=== PATIENT | male | born 1935 | race Caucasian/White ===

== ENCOUNTER 2019-09-27 16:00 | Outpatient (RCR) | payer MEDICARE, BC, SELFPAY | END 2019-09-27 16:05 | disposition home or self-care (01) | LOC: PT 16:00 | PROVIDERS: Visit Provider Family Medicine | DX: S81.802A Unspecified open wound, left lower leg, initial encounter (principal); S41.101A Unspecified open wound of right upper arm, initial encounter | CPT/HCPCS: 29580; 97161; 97164; 97597; 97598 ==

== ENCOUNTER 2021-04-04 10:23 | Emergency (ER) | payer MEDICARE, BC, SELFPAY ==
[2021-04-04 10:55] VITALS: BP 116/72; PULSE 80; RESP 24; TEMP 37.3; O2SAT 98; BMI 26.9
--- NOTE | 2021-04-04 11:01 | XR_ITS ---
PROCEDURE INFORMATION: Exam: XR Chest Exam date and time: 04/04/2021 11:01 AM Age: 85 years old Clinical indication: Cough; Additional info: Congestion, cough TECHNIQUE: Imaging protocol: XR of the chest. Views: 2 views. COMPARISON: CR CXR CHEST(2 VIEWS-NOT PORTABLE) 03/16/2017 10:23 PM FINDINGS: Tubes, catheters and devices: Pacer leads stable. Lungs: Unremarkable. No consolidation. Pleural spaces: Unremarkable. No pleural effusion. No pneumothorax. Heart/Mediastinum: Unremarkable. No cardiomegaly. Bones/joints: Unremarkable. IMPRESSION: No acute process.
[2021-04-04 11:17] LABS: UTC Strep Screen (Rapid) Negative (Negative)
--- NOTE | 2021-04-04 11:42 | HMH.EDUTC ---
[facility] [place] Clinical Impression: Bronchitis Disposition: Home, Self-Care Condition on Discharge: Good Instructions: Acute Bronchitis, DI for Acute Bronchitis Additional Instructions: Start antibiotic today. Be sure to complete entire prescription even if feeling better Tylenol and ibuprofen as needed for pain or fever Humidifier/vaporizer/hot steamy shower Follow-up with primary care tomorrow. Follow-up immediately in the ER of the [facility] for new or worsening symptoms or no noticeable improvement over the next 48-72 hours. Stop smoking Margarette Rios will not cause drowsiness to use at bedtime to help stop cough so that she can get some sleep covid swab was sent to lab, call later today for results. self isolate until test results are known to be negative Nasal saline and bulb syringe or nose Simran to remove nasal drainage to help with nasal congestion. Hard to eat, drink, sleep with nasal congestion so important to keep this cleaned out. Monitor temp. Tylenol or Motrin as needed for pain or fever Encourage fluids, water, Gatorade, Powerade, Pedialyte if infant/toddler/child Warm salt water gargles Warm fluids Sore throat lozenges Sleep elevated Humidifier/vaporizer Follow-up immediately for new or worsening symptoms or no noticeable improvement over the next 48-72 hours. Prescriptions: Amoxicillin [Amoxicillin 500mg Tab] 500 mg PO BID 10 Days #20 tablet Azithromycin [Zithromax 250mg tab] 250 mg PO DIRECTED #6 tab Transmission Status: Pending to [facility]/pharmacy #[id number] Referrals: Coleman Fitzgerald [Primary Care Provider] - Time of Disposition: 12:09 Medical Decision Making - Sumanth Inquiry Pt receiving controlled substance: No Vital Signs: 04/04/21 10:55 Temperature 99.1 F Temperature Source Oral Pulse Rate [Right Brachial] 80 Respiratory Rate 24 Blood Pressure [Right Arm] 116/72 Blood Pressure Mean [Right Arm] 86 Blood Pressure Source [Right Arm] Automatic Cuff Blood Pressure Position [Right Arm] Sitting 02 Sat by Pulse Oximetry 98 Oxygen Delivery Method Room Air - Lab Data Lab Results 04/04/21 10:51: Strep Scn Rapid Clinic Negative Orders (Tests/Meds): ORDERS Category Date Time Status Full Resp Panel w/COVID ([facility]) Routine Lab 04/04/21 10:54 Received Strep Screen Confirmation Stat Micro 04/04/21 10:[address] [facility] [place] - General Chief complaint: Urgent [facility] Stated complaint: chills, sore throat, congestion, body aches Time Seen by Provider: 04/04/21 11:42 Mode of Arrival: Ambulatory Source of Information: Patient Limitations: No Limitations Description of Symptoms (Recalled from Triage Doc. by RN): PATIENT C/O SORE THROAT, RUNNY NOSE, CHILLS, BODY ACHES, AND PRODUCTIVE COUGH WITH DARK MUCOUS X 4 DAYS HEENT Symptoms (Recalled from RN notes): Yes Resp Symptoms (Recalled from RN notes): Yes Skin Symptoms (Recalled from RN notes): No MS Symptoms (Recalled from RN notes): No Functional Status (Recalled from RN notes): WNL - History of Present Illness Provider Complaint: 85 yr old male presents for sore throat,runny nose,chills,body aches, ad coughing up thick dark mucus for 4 days. pt states he can not lay flat due to coughing - Related Data Previous Rx's Medication Instructions Recorded Amoxicillin [Amoxicillin 500mg Tab] 500 mg PO BID 10 Days #20 tablet 04/04/21 Azithromycin [Zithromax 250mg 250 mg PO DIRECTED #6 tab 04/04/21 tab] Allergies Allergy/AdvReac Type Severity Reaction Status Date / Time acetaminophen Allergy Intermediate I-ITCHING Verified 04/04/21 11:15 [From DARVOCET-N] propoxyphene Allergy Intermediate I-ITCHING Verified 04/04/21 11:15 [From DARVOCET-N] Sulfa (Sulfonamide Allergy Intermediate I-ITCHING Verified 04/04/21 11:15 Antibiotics) [SULFA (SULFONAMIDE ANTIBIOTICS)] Penicillins Allergy Verified 04/04/21 11:15 - Worker's Comp Is this a Worker's Comp case?: No [facility] History - Hepatiti
[2021-04-04 11:46] LABS: Adenovirus,PCR Not Detected (NotDetected); Bordetella Pertussis Not Detected (NotDetected); Chlamydophila Pneumoniae, PCR Not Detected (NotDetected); Coronavirus 19, PCR Not Detected (NotDetected); Coronavirus 229E Not Detected (NotDetected); Coronavirus NL63 Not Detected (NotDetected); Coronavirus OC43 Not Detected (NotDetected); Coronovirus HKU1,PCR Not Detected (NotDetected); Human Metapneumovirus Not Detected (NotDetected); Influenza A, PCR Not Detected (NotDetected); Influenza AH1, 2009 Not Detected (NotDetected); Influenza AH1, PCR Not Detected (NotDetected); Influenza AH3,PCR Not Detected (NotDetected); Influenza B, PCR Not Detected (NotDetected); Mycoplasma Pneumoniae, PCR Not Detected (NotDetected); Parainfluenza 1, PCR Not Detected (NotDetected); Parainfluenza 2, PCR Not Detected (NotDetected); Parainfluenza 3, PCR Not Detected (NotDetected); Parainfluenza 4, PCR Not Detected (NotDetected); Respiratory Syncytial Virus Not Detected (NotDetected)
[2021-04-04 12:11] VITALS: BP 116/72; PULSE 80; RESP 24; TEMP 37.3; O2SAT 98
[2021-04-04 12:52] LABS: Rhinovirus/Enterovirus Detected (NotDetected)
== END 2021-04-04 12:23 | disposition home or self-care (01) ==
PROVIDERS: Emergency Provider Nurse Practitioner Family; PCP Family Medicine
DX: J20.9 Acute bronchitis, unspecified (principal); Z20.822 Contact with and (suspected) exposure to COVID-19
CPT/HCPCS: G0463; 71046; 87581; 87632; 87798; 87880; 99202; C9803; U0003; U0005

== ENCOUNTER 2024-03-27 07:27 | Emergency (ER) | payer MEDICARE, BC, SELFPAY ==
[2024-03-27 07:28] VITALS: BP 146/73; PULSE 68; RESP 20; TEMP 36.7; O2SAT 96; BMI 25.0
[2024-03-27 08:00] VITALS: BP 123/64; PULSE 60; O2SAT 95
--- NOTE | 2024-03-27 08:04 | ECG_ITS ---
APPROVED REPORT Exam: Resting ECG HR:63 bpm ECG Measurements Heart Rate 63 AXES OR 271 P 89 QRSd 113 QRS 97 QT 443 T 47 QTc 451 Conclusion ELECTRONIC ATRIAL PACEMAKER BORDERLINE RIGHT AXIS DEVIATION [QRS AXIS > 90] MODERATE INTRAVENTRICULAR CONDUCTION DELAY [110+ ms QRS DURATION] ABNORMAL RHYTHM ECG Electronically signed by : MERRY FUENTES, 03/27/2024 15:29:08
--- NOTE | 2024-03-27 08:04 | PC.NURSE ---
drainage noted from the penis prior to kc insertion. sterile technique used. urine sample sent to lab. notified.
[2024-03-27 08:07] LABS: Microscopic, Urine URINE MICROSCOPIC (MICROSCOPIC)
[2024-03-27 08:13] LABS: Appearance,Urine CLEAR (Clear); Bilirubin,Urine Negative (Negative); Blood, Urine 2+ (Negative); Color,Urine YELLOW (Yellow); Glucose,Urine (UA) Negative (Negative); Ketones,Urine Negative (Negative); Leukocyte Esterase,Urine 1+ (Negative); Nitrate,Urine Negative (Negative); Protein,Urine Negative (Negative); Urobilinogen,Urine 0.2 EU/dl (0.2)
--- NOTE | 2024-03-27 08:15 | HMH.EDGENADL ---
Discharge Plan Disposition Patient Disposition: Home, Self-Care Condition: Good Prescriptions Prescriptions: No Action azithromycin 250 MG tablet 250 mg PO DIRECTED Qty: 6 0RF Rx Instructions: Take two (2) tablets on day #1, then one (1) tablet day #2 thru #5 azithromycin 250 MG tablet 250 mg PO DIRECTED Qty: 6 0RF Rx Instructions: Take two (2) tablets on day #1, then one (1) tablet day #2 thru #5 fluticasone propionate 120 SPR/BOT bottle 1 spr NS DAILY 14 Days Qty: 9.9 0RF benzonatate 100 MG capsule 100 mg PO BID PRN (Reason: Cough) 7 Days Qty: 14 0RF Referrals Follow up/Referrals: Coleman Fitzgerald [Primary Care Provider] - See instructions Activity Restrictions/Add. Instructions Additional Instructions/Restrictions: You were evaluated in the emergency department today. Please continue taking your antibiotic at home as prescribed. Keep your kc catheter in place. See attached instructions. We sent a urine culture. We will let you know if anything comes back positive. Your calcium is slightly low, so follow up with your primary care provider for recheck. Clinical Impressions Clinical Impression: Acute UTI, Acute urinary retention, Hypocalcemia Instructions Patient Instructions: How to Care for Your Kc Catheter -- Male, Prostatitis, DI for Urinary Tract Infection (UTI) Print Language Print Language: Serbian Discharge ED Provider: Melly Shore General Adult HPI General Chief complaint: Urogenital-Male Stated complaint: needs catheter Time Seen by Provider: 03/27/24 07:35 Mode of Arrival: Ambulatory Source of Information: Patient and Relative Limitations: No Limitations Description of Symptoms (Recalled from ER Triage Doc. by RN): pt is unable to urinate. diarrhea,belly pain. History of Present Illness HPI narrative: This patient is an 88-year-old male with a history of BPH presenting to the emergency department for evaluation with concern for inability to urinate. Patient was admitted to [facility] ICU for 5 days and was just released yesterday. He notes that he had sepsis secondary to urinary tract infection and inability to urinate requiring Kc catheter as well as an ileus. He states that he started having normal bowel function and also was able to urinate on his own yesterday after a Kc catheter was pulled, so he was discharged without a catheter. He notes that his urine output had slowly tapered off and he is not been able to urinate anything since last night. Last night he only got a small dribble. He has significant pelvic pressure and feels the urge to urinate but cannot go. Otherwise, he has not had any fevers, chills, nausea, vomiting, or other concerns. He is still having good bowel movements and is passing gas. He notes he had a bowel movement here just upon arrival. Related Data Previous Rx's ?Medication ?Instructions ?Recorded azithromycin 250 mg tablet 250 mg PO DIRECTED #6 tabs 04/04/21 azithromycin 250 mg tablet 250 mg PO DIRECTED #6 tabs 04/04/21 benzonatate 100 mg capsule 100 mg PO BID PRN Cough 7 days #14 04/04/21 caps fluticasone propionate 50 1 spr NS DAILY 14 days #9.9 mL 04/04/21 mcg/actuation nasal spray,suspension Allergies Allergy/AdvReac Type Severity Reaction Status Date / Time acetaminophen Allergy Intermediate I-ITCHING Verified 04/04/21 11:15 [From DARVOCET-N] propoxyphene Allergy Intermediate I-ITCHING Verified 04/04/21 11:15 [From DARVOCET-N] Sulfa (Sulfonamide Allergy Intermediate I-ITCHING Verified 04/04/21 11:15 Antibiotics) [SULFA (SULFONAMIDE ANTIBIOTICS)] Penicillins Allergy Verified 04/04/21 11:15 PFSH [facility] Disclaimer: The information contained in this section may have been updated after the patient was seen, as this information can be updated by other users. Social History Smoking Status: Never smoker alcohol intake: never current occupational status: other Travel in the last 8 weeks: None ROS Obtained: Yes All systems reviewed & no additional complaints except as documented Physical Exam General General appearance: alert and in no apparent distress Head Head exam: atraumatic and normocephalic Eye Eye exam: Present normal appearance, PERRL and EOMI ENT ENT exam: Present normal exam, normal oropharynx, mucous membranes moist and normal external ear exam Neck Neck exam: Present normal inspection, full ROM and trachea midline; Absent tenderness Chest Chest inspection: Present normal inspection and symmetric chest wall rise; Absent tenderness Respiratory Respiratory exam: Present normal lung sounds bilaterally; Absent respiratory distress, wheezes, stridor or accessory muscle use Cardiovascular Cardiovascular exam: Present regular rate and normal rhythm Abdominal Exam Abdominal exam: Present distention (Suprapubic) and tenderness (Suprapubic); Absent rebound or rigidity Extremities Exam Extremities exam: Present normal inspection, full ROM and normal capillary refill; Absent tenderness or edema Back Exam Back exam: Present normal inspection and full ROM; Absent tenderness Neurological Exam Neurological exam: Present alert, oriented X3, CN II-XII intact and normal gait; Absent motor sensory deficit Psychiatric Psychiatric exam: Present normal affect and normal mood Skin Skin exam: Present warm and dry Medical Decision Making Medical Records Medical records reviewed: Yes I reviewed the patient's medical records. Screening: Per USPSTF and CDC recommendations, given the prevalence of disease in our region, it is our hospital?s policy to screen for HIV and viral Hepatitis for all patients aged 18 and over and those with ongoing risk factors. Sumanth Inquiry Pt receiving controlled substance: No Vital Signs: 03/27/24 07:28 03/27/24 08:00 03/27/24 09:49 Temperature 98.1 F 98.4 F Temperature Source Oral Oral Pulse Rate 60 89 Pulse Rate [Right] 68 Respiratory Rate 20 20 Blood Pressure 123/64 151/76 H Blood Pressure [Right Arm] 146/73 H Blood Pressure Mean [Right Arm] 97 02 Sat by Pulse Oximetry 96 95 Oxygen Delivery Method Room Air Room Air Lab Data Lab results reviewed: Yes I reviewed the patient's lab results. Lab Results 03/27/24 07:44: Urine Color Yellow, Urine Appearance Clear, Urine pH 6.0, Ur Specific [place] 1.010, Urine Protein Negative, Urine Glucose (UA) Negative, Urine Ketones Negative, Urine Blood 2+ A, Urine Nitrate Negative, Urine Bilirubin Negative, Urine Urobilinogen 0.2, Ur Leukocyte Esterase 1+ A, Urine RBC 10-20, Urine WBC 10-20, Ur Squamous Epith Cells None, Urine Bacteria Trace 03/27/24 08:20: WBC 6.5, RBC 3.52 L, Hgb 11.1 L, Hct 32.6 L, MCV 92.6, MCH 31.4 H, MCHC 33.9, RDW 13.8, Plt Count 153, MPV 8.0, Neut % (Auto) 68.3, Lymph % (Auto) 19.6, [place] % (Auto) 9.0, Eos % (Auto) 2.7, Baso % (Auto) 0.4, Neut # (Auto) 4.5, Lymph # (Auto) 1.3, [place] # (Auto) 0.6, Eos # (Auto) 0.2, Baso # (Auto) 0.0, Sodium 135 L, Potassium 3.9, Chloride 109 H, Carbon Dioxide 23, Anion Gap 6.9, BUN 13, Creatinine 0.90, Estimated Creat Clear 66, Estimated GFR 80, Est GFR ( Amer) 96, Glucose 90, Lactate 0.8, Calcium 7.7 L, Total Bilirubin 0.5, AST 68 H, ALT 48, Alkaline Phosphatase 81, Total Protein 4.8 L, Albumin 2.5 L, Globulin 2.3, Albumin/Globulin Ratio 1.1, Lipase 31, HIV 1&2 Antibody Rapid Nonreactive 03/27/24 08:20 03/27/24 08:20 Orders (Tests/Meds): ORDERS Category Date Time Status Complete Blood Count Auto Diff Stat Lab 03/27/24 08:20 Completed Comprehensive Metabolic Panel Stat Lab 03/27/24 08:20 Completed HIV (1&2) Antibody Rapid Stat Lab 03/27/24 08:20 Completed Hep C Ab with Reflex to RNA Stat Lab 03/27/24 08:20 Received Lactic Acid Stat Lab 03/27/24 08:20 Completed Lipase Stat Lab 03/27/24 08:20 Completed UA [Urinalysis and Microscopic] Stat Lab 03/27/24 07:44 Completed Urine Culture Stat Micro 03/27/24 07:44 Received ECG Data Tracing #1: I reviewed this ECG and interpreted as documented below: Atrially paced at a ventricular rate of [address] changes concerning for ischemia. ECG initial impression date: 03/27/24 ECG initial impression time: 08:06 Medical Decision Narrative: In summary, this patient is a 88-year-old man presenting to the Emergency Department for evaluation of suprapubic pain and inability to urinate. Differential diagnoses considered include but are not limited to urinary retention, urinary tract infection, bowel obstruction, prostatitis. Ruling out the most morbid conditions drove assessment. It should be noted patient's history includes BPH and cardiovascular history which may or may not be at goal therapy. This complicates all aspects of care by increasing patient's risk for morbidity. On exam, patient initially had significant suprapubic distention and tenderness, and bladder scan demonstrated greater than 1000 cc in his bladder. After informed consent was obtained, Kc catheter was placed. There was no significant resistance and it was placed without issue. He had return of clear yellow urine with resolution of his pain and pressure. Afterward, he was feeling a lot better with completely benign abdominal exam. No tenderness, rebound, or guarding noted. He denies any abdominal pain. Workup included CBC, CMP, lipase, urinalysis, lactic, EKG. On reassessment, patient continues to states that he feels a lot better after placement of Kc catheter. He had a liter out initially and did not continue dumping any significant amount urine. Abdominal exam remains benign. Labs are reassuring without significant KIM, leukocytosis, or other concern. His urine is concerning for possible infection, but he still on antibiotics for this. Urine culture was sent and is pending. Ultimately after shared decision-making with the patient, I feel it is appropriate for discharge home with close follow-up with urology and primary care. Low back was anchored in place. Patient was discharged after all questions were answered. Critical Care Critical Care Time Critical Care Time: No
[2024-03-27 08:30] LABS: Bacteria,Urine Trace /lpf
[2024-03-27 08:31] LABS: Basophils % 0.4 % (0.1-2.0); Eosinophils # 0.2 K/mm3 (0.0-0.4); Eosinophils % 2.7 % (0.1-12.0); Hematocrit 32.6 % (42.0-52.0); Hemoglobin 11.1 g/dL (14.1-18.0); Lymphocytes # 1.3 K/mm3 (0.7-4.5); Lymphocytes % 19.6 % (10-50); Mean Corpuscular HGB Conc 33.9 g/dL (31.8-35.4); Mean Corpuscular Hemoglobin 31.4 pg (27.0-31.2); Mean Corpuscular Volume 92.6 fl (80-94); Monocytes # 0.6 K/mm3 (0.1-1.0); Neutrophils # 4.5 K/mm3 (1.8-7.8); Neutrophils % 68.3 % (37.0-80.0); Platelet Count 153 K/mm3 (142-424); Red Blood Count 3.52 M/mm3 (4.60-6.20); Red Cell Distribution Width 13.8 % (11.5-17.5); White Blood Count 6.5 K/mm3 (4.8-10.8)
[2024-03-27 08:47] LABS: Alanine Aminotransferase 48 U/L (12-78); Albumin Level 2.5 g/dl (3.5-5.0); Albumin/Globulin Ratio 1.1 (1.1-1.8); Alkaline Phosphatase 81 U/L (38-126); Anion Gap 6.9 mEq/L (5-15); Aspartate Amino Transferase 68 U/L (17-59); Bilirubin,Total 0.5 mg/dl (0.2-1.3); Blood Urea Nitrogen 13 mg/dl (9-20); Calcium 7.7 mg/dl (8.4-10.2); Carbon Dioxide 23 mmol/L (22.0-30.0); Chloride 109 mmol/L (98-107); Creatinine Clearance Estimated 66 mL/min (50-200); Estimated Glomerular Filt Rate 80 ml/min (>60); GFR (African American) 96 ML/MIN (>60); Globulin 2.3 g/dL (1.3-3.2); Glucose 90 mg/dl (74-100); Lipase 31 U/L (23-300); Potassium 3.9 mmoL/L (3.5-5.1); Sodium 135 mmol/L (136-145); Total Protein,Serum 4.8 g/dl (6.3-8.2)
[2024-03-27 08:48] LABS: Lactic Acid 0.8 mmol/L (0.7-2.1)
[2024-03-27 09:49] VITALS: BP 151/76; PULSE 89; RESP 20; TEMP 36.9; O2SAT 94
[2024-03-27 13:55] LABS: HIV (1&2) Antibody Rapid NONREACTIVE (NONREACTIVE)
[2024-03-28 09:39] LABS: HCV Ab Non Reactive (Non Reactive)
== END 2024-03-27 09:52 | disposition home or self-care (01) ==
PROVIDERS: Emergency Provider Emergency Medicine; PCP Family Medicine
DX: N39.0 Urinary tract infection, site not specified (principal); R33.8 Other retention of urine; E83.51 Hypocalcemia; R10.9 Unspecified abdominal pain; R19.7 Diarrhea, unspecified
CPT/HCPCS: 51702; 80053; 81001; 83605; 83690; 85025; 86803; 87086; 87389; 93005; 99283

== ENCOUNTER 2025-02-03 10:50 | Emergency (ER) | payer MEDICARE, BC, SELFPAY ==
--- OUTSIDE RECORDS SUMMARY | 2024-11-30 06:00 | XMS_ITS | Encounter Summary ---
Author Organization [employer] ([place], [place], [place], [place]) Address [address] [place] [address] Care Team Providers Care Personal Injury Law Specialist Name Role Phone Coleman Fitzgerald MD Primary Care Provider [phone] Thalia Brito PA-C Unavailable [phone] Eduard Harris MD Unavailable Reason for Visit * Reason Comments Pacemaker /ICD Home Monitoring Encounter Details Date Type Department Care Team (Late st Contact Info) Description 11/30/2024 6:00 AM EDT Clinical Support [facility] Electrophysiology [address] [place] [phone] [place] [address] [place] [address] [address] [place] [address] Encounter for adjustment or management of cardiac device (Primary Dx); AICD (automatic cardioverter/defibr illator) present; Ischemic cardiomyopathy; Chronic systolic congestive heart failure (HCC) Social History Tobacco Use Types Packs/Day Years Used Date Smoking Tobacco: Former Smokeless Tobacco: Never Alcohol Use Standard Drinks/Week Comments Never 0 (1 standard drink = 0.6 oz pur e alcohol) Family and Community Support Answer Juan F e Recorded Help with Day to Day Activities Not on file 06/10/2023 Feeling Lonely or Isolated Not on file 06/10 Educational Attainment Answer Date Narinder rded Speak language other than Bhutanese at home Not on file 06/10/2023 Want help with school or training Not on file 06/10/2023 Substance Use Answer Date Recorded Used prescription meds for non-medical reasons N ot on file 06/10/2023 Used illegal drugs past 12 months Not on file 06/10/2023 Sex and Gender Information Value Date Recorded Sex Assigned at Not on file Legal Sex Male 5:30 PM CDT Gender Identity Not on file Sexual Orientation Not on file documented as of this encounter Plan of Treatment Upcoming Encounters Date Type Department Care Team (Late st Contact Info) Description 03/11/2025 1:30 PM EDT Office Visit [facility] Cardiology [address] [place] [phone] Corina Gómez MD [address] [place] [phone] documented as of this encounter Visit Diagnoses Diagnosis Encounter for adjustment or management of cardiac device- Primary 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 Ischemic cardiomyopathy Other specified forms of chronic ischemic heart disease Chronic systolic congestive heart failure (HCC) documented in this encounter Care Teams Personal Injury Law Specialist Relationship Specialty Start Date End Date Coleman Fitzgerald MD [address] [place] [address] [place] [address] PCP - General Family Medicine 05/28/22 Thalia Brito, PA-C [address] [facility] [address] [id number] Cardiology 01/07/23 [place] [address] [place] [address] [address] [place], [place] [id number] Cardiology 01/07/23 documented as of this encounter
--- OUTSIDE RECORDS SUMMARY | 2024-12-03 05:00 | XMS_ITS | Encounter Summary ---
Author Organization [employer] ([place], [place], [place], [place]) Address [address] [place] [address] Care Team Providers Care Machinery Erector Name Role Phone Coleman Fitzgerald MD Primary Care Provider [phone] Thalia Brito PA-C Unavailable [phone] Eduard Harris MD Unavailable Reason for Visit * Reason Comments Pacemaker /ICD Home Monitoring Encounter Details Date Type Department Care Team (Late st Contact Info) Description 12/03/2024 5:00 AM EDT Clinical Support [facility] Electrophysiology [address] [place] [phone] [place] [address] [place] [address] [address] [place] [address] Encounter for adjustment or management of cardiac [...] Date Narinder rded Speak language other than Ugandan at home Not on file 06/10/2023 Want [...] Description 03/11/2025 1:30 PM EDT Office Visit [facility] Cardiology [address] [place] [address] Corina Gómez MD [address] [place] [phone] documented as of this encounter Visit Diagnoses Diagnosis Encounter for adjustment or management of cardiac device- Primary 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
--- OUTSIDE RECORDS SUMMARY | 2024-12-20 10:25 | XMS_ITS | Encounter Summary ---
Author Organization [facility] Address [address] [place] [address] Care Team Providers Care Member Of Technical Staff Name Role Phone Herminio Tapia Unavailable [phone] Santiago Morrell MD Unavailable [phone] Coleman Fitzgerald MD Primary Care Provider [phone] Reason for Referral * Imaging (Routine) - Closed Specialty Diagnoses / Procedures Referred By Diana tomlinson Referred To Contact Radiology Diagnoses Malignant melanoma of lip (CMS/HCC) Procedures PET/CT FDG Whole Body Huang Gonzalez MD [address] [address] Phone: tel: fax: Referral ID Status Reason Start Date Expiration Date Visits Re quested Visits Authorized [id number] Closed 06/19/2024 12/19/2025 2 2 Reason for Visit * Imaging (Routine) - Closed Specialty Diagnoses / Procedures Referred By Diana tomlinson Referred To Contact Radiology Diagnoses Malignant melanoma of lip (CMS/HCC) Procedures PET/CT FDG Whole Body Huang Gonzalez MD [address] [address] Phone: tel: fax: Referral ID Status Reason Start Date Expiration Date Visits Re quested Visits Authorized [id number] Closed 06/19/2024 12/19/2025 2 2 Encounter Details Date Type Department Care Team (Latest Contact Info) Description 12/20/2024 10:25 AM EDT Hospital Encounter [facility] PET Scan [address] [place] [address] Malignant melanoma of lip (CMS/HCC) Discharge Disposition: Home or Self Care Social History Tobacco Use Types Packs/Day Years Used Date Smoking Tobacco: Former Cigarettes 1 30 1 950 - 1980 Smokeless Tobacco: Never Alcohol Use Standard Drinks/Week Comments Not Currently 0 (1 standard drink = 0.6 oz pur e alcohol) Sex and Gender Information Value Date Recorded Sex Assigned at Not on file Legal Sex Male 3:41 PM EDT Gender Identity Not on file Sexual Orientation Not on file documented as of this encounter Medications at Time of Discharge amiodarone (Pacerone) 200 MG tablet Take 1 tablet (200 mg) by mouth 1 (one) time each day. aspirin 81 MG EC tablet Aspirin Low-Strength 81 mg tablet,delayed release Daily atorvastatin (Lipitor) 40 MG tablet 1 (one) time each day. carvedilol (Coreg) 3.125 MG tablet carvedilol 3.125 mg tablet Two times a day clopidogrel (Plavix) 75 MG tablet Take 1 tablet (75 mg) by mouth 1 (one) time each day. finasteride (Proscar) 5 MG tablet 1 (one) time each day. gabapentin (Neurontin) 100 MG capsule gabapentin guaiFENesin (Humibid 3) 400 MG tablet Take 1 tablet (400 mg) by mouth. losartan (Cozaar) 50 MG tablet Take 1 tablet (50 mg) by mouth 1 (one) time each day. montelukast (Singulair) 10 MG tablet Take 1 tablet (10 mg) by mouth 1 (one) time each day. oxybutynin XL (Ditropan-XL) 10 MG 24 hr tablet 1 (one) time each day. tamsulosin (Flomax) 0.4 MG 24 hr capsule 1 capsule (0.4 mg) 1 (one) time each day. zolpidem (Ambien) 10 MG tablet TAKE 1 TABLET BY MOUTH ONCE A DAY AT BEDTIME 01/15/2022 documented as of this encounter Plan of Treatment Upcoming Encounters Date Type Department Care Team (Late st Contact Info) Description 09/17/2025 1:10 PM EDT Consult [facility] [address] [place] [address] Reyna Padilla, ANJEL [address] [place] [address] documented as of this encounter Procedures Procedure Name Priority Date/Time Associated Diagnosis Comments PET/CT FDG WHOLE BODY Routine 12/20/2024 12:29 PM EDT Malignant melanoma of lip (CMS/HCC) documented in this encounter Results * PET/CT FDG Whole Body (12/20/2024 12:29 PM EDT) Anatomical Region Laterality Modality Positron Emissio n Tomography (PET) Impressions 12/20/2024 5:09 PM EDT 1. Site of prior melanoma in the lower lip does not show significant FDG activity with some head motion which limits evaluation. 2. No evidence of metabolically active locoregional or distant metastatic disease. CRITICAL RESULT: No. COMMUNICATION: Per this written report. By electronically signing this report, I, the attending physician, attest that I have personally reviewed the images/data for the above examination(s) and agree with the final edited report. 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 PET/CT for subsequent treatment strategy. TECHNIQUE: Preparation: Last oral intake (except water) on 12/19/2024 at 22:00 PM. Diabetic: No. Blood glucose at time of FDG administration: 97 mg/dL. Radiopharmaceutical: 11.55 mCi of F-18 FDG administered intravenously at right antecubital fossa at 11:14 AM. Incubation interval: 50 minutes. Oral contrast: Not applicable. Positioning: Arms by sides. PET/CT scanner: Siemens Biograph 40 mCT. PET/CT acquisition: [id number], plus magnification (zoomed) neck. Standardized uptake value (SUV): Corrected for body weight only. CT: Low-dose, [id number], without intravenous contrast. TOTAL DLP (Dose Length Product): 898.52 mGy.cm mGy cm. COMPARISON/CORRELATION: FDG PET/CT December 20 2023 and January 18, 2023. CT neck and chest June 19, 2024. FINDINGS: Technical quality: Diagnostic. Measurements: Unless otherwise specified, all SUVs refer to maximum value in the target (mSUV). Reference: Reference: mean SUV liver: 2.9; previously: 2.5. CT linear measurements performed on axial images. Head and Neck: Head motion with misregistration partially limits evaluation. Near symmetric increased radiotracer activity in the vocal cords, likely vocalization and tonsils are not specific. No suspicious metabolically active or pathologically enlarged adenopathy. Mild asymmetry in FDG activity of the submandibular gland more prominent on the right (series 3,4 image 79) Thyroid without focal abnormal uptake. 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 No suspicious metabolically active pulmonary nodules or masses. Sequelae of prior granulomatous insult. Aortic and coronary calcifications. No pleural effusion, pericardial effusion or pneumothorax. Abdomen and Pelvis: No suspicious metabolically active or pathologically enlarged retroperitoneal or pelvic adenopathy. Cholecystectomy. Stable bilateral photopenic renal cysts. Stable left adrenal 1.5 x 1.3 cm low-attenuation mass likely adenoma (series 11,12 image 101). Stable right adrenal thickening without focal abnormal activity. Heterogenous bowel activity limiting evaluation. Sigmoid diverticulosis without noncontrast CT evidence of diverticulitis. Distended urinary bladder with linear activity in the prostatic urethra is nonspecific. 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 No ascites or drainable fluid collection Skeleton and Soft Tissues: No suspicious metabolically active aggressive osseous lytic or sclerotic lesions. Lower extremities motion with misregistration partially limits evaluation. Procedure Note Patrick Nava MD - 12/20/2024 CLINICAL INDICATION: 89-year-old male with history of lower lip melanoma s/p excision 7/21/2023undergoing routine surveillance imaging. PET/CT for subsequent treatmentstrategy. TECHNIQUE: Preparation: Last oral intake (except water) on 12/19/2024 at 22:00 PM. Diabetic: No. Blood glucose at time of FDG administration: 97 mg/dL. Radiopharmaceutical: 11.55 mCi of F-18 FDG administered intravenously atright antecubital fossa at 11:14 AM. Incubation interval: 50 minutes. Oral contrast: Not applicable. Positioning: Arms by sides. PET/CT scanner: Siemens Biograph 40 mCT. PET/CT acquisition: [id number]-sh-tiac, plus magnification (zoomed) neck. Standardized uptake value (SUV): Corrected for body weight only. CT: Low-dose, [id number]-jons, without intravenous contrast. TOTAL DLP (Dose Length Product): 898.52 mGy.cm mGy cm. COMPARISON/CORRELATION: FDG PET/CT December 20 2023 and January 18, 2023. CT neck and chest May. FINDINGS: Technical quality: Diagnostic. Measurements: Unless otherwise specified, all SUVs refer to maximum valuein the target (mSUV). Reference: Reference: mean SUV liver: 2.9; previously: 2.5. CT linear measurements performed on axial images. Head and Neck: Head motion with misregistration partially limits evaluation. Near symmetric increased radiotracer activity in the vocal cords, likelyvocalization and tonsils are not specific. No suspicious metabolically active or pathologically enlargedadenopathy. Mild asymmetry in FDG activity of the submandibular gland more prominenton the right (series 3,4 image 79) Thyroid without focal abnormal uptake. Chest: Left upper chest approach pacemaker/ICD (implantablecardioverter-defibrillator) No suspicious metabolically active or pathologically enlarged hilar ormediastinal adenopathy. No suspicious metabolically active pulmonary nodules or masses. Sequelae of prior granulomatous insult. Aortic and coronary calcifications. No pleural effusion, pericardial effusion or pneumothorax. Abdomen and Pelvis: No suspicious metabolically active or pathologically enlargedretroperitoneal or pelvic adenopathy. Cholecystectomy. Stable bilateral photopenic renal cysts. Stable left adrenal 1.5 x 1.3 cm low-attenuation mass likely adenoma(series 11,12 image 101). Stable right adrenal thickening without focalabnormal activity. Heterogenous bowel activity limiting evaluation. Sigmoid diverticulosis without noncontrast CT evidence ofdiverticulitis. Distended urinary bladder with linear activity in the prostatic urethra isnonspecific. Aneurysmal dilatation of the infrarenal abdominal aorta with photopenicintramural thrombosis which is stable from prior.(series 11,12 image 132). No ascites or drainable fluid collection Skeleton and Soft Tissues: No suspicious metabolically active aggressive osseous lytic or scleroticlesions. Lower extremities motion with misregistration partially limitsevaluation. IMPRESSION: 1.Site of prior melanoma in the lower lip does not show significant FDGactivity with some head motion which limits evaluation. 2.No evidence of metabolically active locoregional or distant metastaticdisease. CRITICAL RESULT: No. COMMUNICATION: Per this written report. By electronically signing this report, I, the attending physician, attestthat I have personally reviewed the images/data for the aboveexamination(s) and agree with the final edited report. Drafted by TJ Sales on 12/20/2024 3:59 PM Final report signed by Patrick Nava on 12/20/2024 5:09 PM Huang Gonzalez MD IMG NM PROCEDURES Final Result documented in this encounter Visit Diagnoses Diagnosis Malignant melanoma of lip (CMS/HCC) Malignant melanoma of skin of lip documented in this encounter Administered Medications Inactive Administered Medications - up to 3 most recent administrations Medication Order MAR Action Action Date Dose Rate Site Fludeoxyglucose F 18 (FDG 18) radio-isotope injection 10 millicurie 10 millicurie, Intravenous, Once, 1 dose, On Shannan 12/20/24 at 1215, Routine, Imaging NM Protocol Orders Given 12/20/2024 11:14 AM EDT 11.55 millicuries Right Antecubital documented in this encounter Additional Health Concerns Assessment Noted Time A fall risk assessment has been complete d for the patient 12/20/2024 2:47 PM EDT A Body Mass Index follow-up plan has been documented for the patient 12/21/2024 6:20 PM EDT documented as of this encounter Care Teams Member Of Technical Staff Relationship Specialty Start Date End Date Coleman Fitzgerald MD [facility] [place] [address] PCP - General 01/18/23 Herminio Tapia PA [address] [place] [address] Physician Security Police Officer Otolaryngology 12/16/22 Santiago Morrell MD [address] [place] [address] Referring Physician 12/16/22 documented as of this encounter
--- OUTSIDE RECORDS SUMMARY | 2024-12-20 10:26 | XMS_ITS | Encounter Summary ---
Author Organization [facility] Address [address] [place] [address] Care Team Providers Care Resident Services Director Name Role Phone Herminio Tapia Unavailable [phone] Santiago Morrell MD Unavailable [phone] Coleman Fitzgerald MD Primary Care Provider [phone] Reason for Visit * Imaging (Routine) - Closed Specialty Diagnoses / Procedures Referred By Contac t Referred To Contact Radiology Diagnoses Malignant melanoma of lip (CMS/HCC) Procedures PET/CT FDG Whole Body Huang Gonzalez MD [address] [place] [address] Phone: tel: fax: Referral ID Status Reason Start Date Expiration Date Visits Re quested Visits Authorized [id number] Closed 06/19/2024 12/19/2025 2 2 Encounter Details Date Type Department Care Team (Latest Contact Info) Description 12/20/2024 10:26 AM EDT - 12/20/2024 11:59 PM EDT Hospital Encounter [facility] PET Scan [address] [place] [address] Discharge Disposition: Home or Self Care Social History Tobacco Use Types Packs/Day Years Used Date Smoking Tobacco: Former Cigarettes 1 30 1 - 1979 Smokeless Tobacco: Never Alcohol Use Standard Drinks/Week [...] MG tablet 1 (one) time each day. bisoprolol (Zebeta) 5 MG tablet Take 1 tablet by mouth daily. carvedilol (Coreg) 3.125 MG tablet carvedilol 3.125 mg tablet Two times a day clopidogrel (Plavix) 75 MG tablet Take 1 tablet (75 mg) by mouth 1 (one) time each day. finasteride (Proscar) 5 MG tablet 1 (one) time each day. gabapentin (Neurontin) 100 MG capsule gabapentin guaiFENesin (Humibid 3) 400 MG tablet Take 1 tablet (400 mg) by mouth. lisinopril-hydro CHLOROthiazide 10-12.5 MG tablet Take 1 tablet by mouth daily. losartan (Cozaar) 50 MG tablet Take 1 [...] Info) Description 09/17/2025 1:10 PM EDT Consult [place] [facility] [address] [place] [address] Reyna Padilla PA [address] [place] [id number] documented as of this encounter Procedures Procedure [...] scanner: Siemens Biograph 40 mCT. PET/CT acquisition: [id number], plus magnification (zoomed) neck. Standardized uptake value (SUV): Corrected for body weight only. CT: Low-dose, [id number], without intravenous contrast. TOTAL DLP (Dose Length [...] history of lower lip melanoma s/p excision 12/10/2022undergoing routine surveillance imaging. PET/CT for subsequent treatmentstrategy. [...] scanner: Siemens Biograph 40 mCT. PET/CT acquisition: Reuduu-ep-fnji, plus magnification (zoomed) neck. Standardized uptake value (SUV): Corrected for body weight only. CT: Low-dose, zih-gtykcz-fjse, without intravenous contrast. TOTAL DLP (Dose Length [...] signing this report, I, the attending physician, keena I have personally reviewed the images/data for the aboveexamination(s) and agree with the final edited report. Drafted by TJ Sales on 12/20/2024 3:59 PM Final report signed by Patrick Nava on 12/20/2024 5:09 PM Huang Gonzalez MD IMG NM PROCEDURES Final Result documented in this encounter Visit Diagnoses Not on filedocumented in this encounter Additional Health Concerns Assessment Noted Time A fall risk assessment has been complete d for the patient 12/20/2024 2:47 PM EDT A Body Mass Index follow-up plan has been documented for the patient 12/21/2024 6:20 PM EDT documented as of this encounter Care Teams Resident Services Director Relationship Specialty Start Date End Date Coleman Fitzgerald MD [address] [place] [address] PCP - General 01/18/23 Herminio Tapia PA [address] [facility] [address] [place] [address] Physician Tooling Manager Otolaryngology 12/16/22 Santiago Morrell MD [address] [facility] [place] [address] Referring Physician 12/16/22 documented as of this encounter
--- OUTSIDE RECORDS SUMMARY | 2024-12-20 15:00 | XMS_ITS | Encounter Summary ---
Author Organization Healthcare Address [address] [place] [address] Care Team Providers Care Green Marketing Specialist Name Role Phone Herminio Tapia Unavailable [phone] Santiago Morrell MD Unavailable [phone] Coleman Fitzgerald MD Primary Care Provider [phone] Reason for Visit * Reason Comments Follow-up Encounter Details Date Type Department Care Team ([facility] st Contact Info) Description 12/20/2024 3:00 PM EDT Office Visit [facility] [address] [place] [address] Huang Gonzalez MD [address] [place] [address] Malignant melanoma of lip (CMS/HCC) Social History Tobacco Use Types Packs/Day Years Used Date Smoking Tobacco: Former Cigarettes - 1979 Smokeless Tobacco: Never Tobacco Cessation:Counseling Given: No Alcohol Use Standard Drinks/Week Comments Not Currently 0 (1 standard drink = 0.6 oz pur e alcohol) Sex and Gender Information Value Date Recorded Sex Assigned at Not on file Legal Sex Male 3:41 PM EDT Gender Identity Not on file Sexual Orientation Not on file documented as of this encounter Last Filed Vital Signs Vital Sign Reading Time Taken Comments Blood Pressure 90/55 12/20/2024 2:42 PM EDT Pulse 69 12/20/2024 2:42 PM EDT Temperature 36.3 C (97.4 F) 12/20/2024 2:42 PM EDT Respiratory Rate 11 12/20/2024 2:42 PM EDT Oxygen Saturation 97% 12/20/2024 2:42 PM EDT Inhaled Oxygen Concentration - - Weight 89.7 kg (197 lb 12 oz) 12/20/2024 2:42 PM EDT Height - - Body Mass Index 25.39 12/20/2022 9:12 AM EDT documented in this encounter Miscellaneous Notes * Progress Notes - Lorenzo Campo MD - 12/20/2024 3:00 PM EDT Images from the original note were not included. Mr. Johnny Stroud is a very pleasant 89 y.o. patient who is returning today for his follow-up. 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 Santiago Morrell. He was initially sent to my clinic in consultation for evaluation and management of his desmoplastic melanoma. He originally noticed the lesion on the inside of his lower lip approximately 1 year prior to evaluation. He first noticed it has a small bump to which he attributed to rubbing and trauma from his dentures. It continued to be bothersome as it increased in size over the course of a year and therefore he went to an outside ENT for evaluation. Excisional biopsy was performed on 12/10/22 with pathology showing desmoplastic melanoma with >9mm DOI and PNI staged as a T4a lesion. With this finding he was referred to me for evaluation and management. He returned 01/18/[address] neck and chest as well as PET/CT scan. CT chest shows no sign of disease within the chest. CT neck shows some thickening at the previous excision site but pending official read. PET/CT shows no signs of disease in the head and neck nor does it show any distant metastatic disease. Restaging CT scans of the neck and chest on 06/21/2023 do not reveal any evidence of disease. PET-CT scan from 12/20/2023 did not reveal any evidence of disease. Restaging scans of the neck and chest from 06/19/2024 did not reveal any evidence of disease. The patient has been doing very well since last visit. He continues to have numbness of his lower lip. He also reported new shooting like pain at the right TMJ area . Patient has been seen by street car inspector for ear pain and was told he may have TMJ related pain. He denies any other concerns. The patient denied otalgia, otorrhea, hearing loss, vertigo or tinnitus. He denied having sinonasalsymptoms, postnasal drip, epistaxis, nasal congestion/obstruction or anosmia/hyposmia. He also denied dysphagia, odynophagia, dysphonia, dyspepsia, dyspnea or reflux disease. The patient's complete review of system from 12/20/24 was performed today. All systems were negative except for those mentioned in the HPI, prior CABG in 1984 and multiple cardiac stents placed currently on ASA and clopidogrel therapy, CAD, HTN, HLD, Cardiac defibrillator in place, atrial fibrillation, and BPH . Radiographs: - CT scan of the neck: . 01/18/2023: No signs of lymphadenopathy noted, there is some thickening of the lower lip at the site of the biopsy but difficult to discern second to dental artifact, pending official radiology read . 06/21/2023: No evidence of head and neck disease . 06/19/2024: No evidence of disease in the head and neck region - CT scan of the chest: . 01/18/2023: No signs of disease within the chest . 06/21/2023: No evidence of thoracic malignancy . 06/19/2024: No evidence of thoracic malignancy - PET CT scan: . 01/18/2023: No evidence of metabolically active residual or metastatic disease. . 12/20/2023: No evidence of metabolically active residual or metastatic disease. . 12/20/2024: No evidence of metabolically active residual or metastatic disease. I independently reviewed the images. I discussed my findings with the patient. Surgeries: -None with [facility] Pathology: - 12/10/2022: Excisional biopsy by Dr Morrell - T4a Desmoplastic melanoma with DOI atleast 9mm, Mitosis >2 per hpf, measuring 1.5cm without ulceration. PNI identified, no LVI Tumor Board recommendations: -None Allergies: Allergies Allergen Reactions Cephalexin Itching Penicillins Unknown - Patient states they do not know rxn details Sulfa Drugs Unknown - Patient states they do not know rxn details Past medical history: As in history of present illness, HTN, HLD, Atrial fibrillation, CAD, BPH Past surgical history: CABG in , cardiac stents, defibrillator placement, excision of left liptumor 12/10/2022, cholecystectomy Family history: reviewed and noncontributory Social history: Never smoker, does not drink or use any illicit drugs. PHYSICAL EXAMINATION: Visit Vitals BP 90/55 Pulse 69 Temp 36.3 ??C (97.4 ??F) Wt 89.7 kg (197 lb 12 oz) SpO2 97% BMI 25.39 kg/m?? General: he is a very healthy-appearing 89 y.o. patient, alert and oriented x3, in no acute distress, well nourished, well developed. Psychiatric evaluation: Normal mood and affect, very pleasant and cooperative. Otoscopy: did not reveal any cerumen impaction. Tympanic membranes are normal without any middle ear effusions. Nasal cavity examination: Septum is midline. I did not see any pus or polyps. Oral cavity examination: The buccal mucosa, lips, gingiva, retromolar trigone, alveolar ridge, floor of mouth, tongue and palate unremarkable. The previous lip excision site on the inner aspect of the lower lip is completely normal and does not reveal any nodularities. Oropharynx: Tonsils are unremarkable bilaterally. Neck: soft and supple. I did not feel any enlarged lymphadenopathy. Eyes: Extraocular movements are intact bilaterally. PERRLA. Neurological examination: Cranial nerves II-XII are grossly intact. Skin of the neck and face: did not reveal any evidence of significant rashes or suspicious appearing nevi or other concerning lesions. Patient has diffuse scaly patches of skin and ecchymosis of the upper extremities, head and neck. Mild TMJ pain Endocrine examination: I do not feel any thyroid nodules. No thyromegaly. Respiratory: chest is symmetrical, breathing comfortably without effort. 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 Santiago Morrell 2- CAD 3- History of CABG and Cardiac stent placement on ASA and clopidogrel 4- Atrial fibrillation with defibrillator in place 5- HLD 6- Cholelithiasis s/p cholecystectomy 7- no evidence of disease RECOMMENDATIONS: I discussed those findings with the patient and I answered his questions to the best of my ability. He is very well clinically and does not have any evidence of disease on exa.. I independently and thoroughly reviewed the patient's PET-CT scan performed today 12/20/24 and I do not see any evidence of disease in the head and neck region. The official report of the scan is pending at the time of the visit. I included photographs of those scans in this note and I discussed my findings with the patient and his family. 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 We discussed using heat therapy, local massage, Tylenol/ibuprofen as needed for pain. I also discussed seen a lab nurse regularly given his history of melanoma as well as evaluation of his skin for any new or concerning lesions. We will plan to see him back in 1 year for follow up. *Digital speech recognition software was used to dictate this note and, despite all efforts to proofread, some dictation errors may occur. If you have any questions, please do not hesitate to contactme. Huang Gonzalez MD MS FACS [employer] [facility] Thyroid/Parathyroid Surgery Rhinology & Skull Base Surgery Cosigned by Huang Gonzalez MD at 12/21/2024 6:20 PM EDT Associated attestation - Huang Gonzalez MD - 12/21/2024 6:20 PM EDT I saw and evaluated the patient with the resident/fellow. I discussed the case with the resident/fellow and agree with the findings and plan as documented. documented in this encounter Plan of Treatment Upcoming Encounters Date Type Department Care Team (Late st Contact Info) Description 09/17/2025 1:10 PM EDT Consult [facility] [address] [place] [address] Reyna Padilla, ANJEL [address] [place] [address] documented as of this encounter Visit Diagnoses Diagnosis Malignant melanoma of lip (CMS/HCC) Malignant melanoma of skin of lip documented in this encounter Additional Health Concerns Assessment Noted Time A fall risk assessment has been complete d for the patient 12/20/2024 2:47 PM EDT A Body Mass Index follow-up plan has been documented for the patient 12/21/2024 6:20 PM EDT documented as of this encounter Care Teams Green Marketing Specialist Relationship Specialty Start Date End Date Coleman Fitzgerald MD [address] [place] [id number] PCP - General 01/18/23 Herminio Tapia PA [address] [facility] [address] [place] [address] Physician Programmer Business Otolaryngology 12/16/22 Santiago Morrell MD [address] [facility] [place] [address] Referring Physician 12/16/22 documented as of this encounter
--- OUTSIDE RECORDS SUMMARY | 2025-01-03 03:00 | XMS_ITS | Encounter Summary ---
Author Organization [employer] ([place], [place], [place], [place]) Address [address] [place] [address] Care Team Providers Care Imitation Marble Mechanic Name Role Phone Coleman Fitzgerald MD Primary Care Provider [phone] Thalia Brito PA-C Unavailable [phone] Eduard Harris MD Unavailable Reason for Visit * Reason Comments Pacemaker /ICD Home Monitoring Encounter Details Date Type Department Care Team (Late st Contact Info) Description 01/03/2025 3:00 AM EDT Clinical Support [facility] Electrophysiology [address] [place] [phone] [place] [address] [place] [address] [address] [place] [address] Encounter for adjustment or management of cardiac [...] Date Narinder rded Speak language other than Belgian at home Not on file 06/10/2023 Want [...] Description 03/11/2025 1:30 PM EDT Office Visit [facility] Cardiology [address] [place] [address] Corina Gómez MD [address] [place] [phone] documented as of this encounter Visit Diagnoses Diagnosis Encounter for adjustment or management of cardiac device- Primary 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 Ischemic cardiomyopathy Other specified forms of chronic ischemic heart disease Chronic systolic congestive heart failure (HCC) documented in this encounter Care Teams Imitation Marble Mechanic Relationship Specialty Start Date End Date Coleman Fitzgerald MD [address] [place] [address] [place] [address] PCP - General Family Medicine 05/28/22 Thlaia Brito, PA-C [address] [facility] [address] [id number] Cardiology 01/07/23 [place] [address] [place] [address] [address] [place], [place] [id number] Cardiology 01/07/23 documented as of this encounter
--- OUTSIDE RECORDS SUMMARY | 2025-01-28 10:11 | XMS_ITS | Encounter Summary ---
Author Organization [facility] Address [address] [place], [place] [id number] Care Team Providers Care Reference Archivist Name Role Phone Herminio Tapia Unavailable Santiago Morrell MD Unavailable [phone] Coleman Fitzgerald MD Primary Care Provider [phone] Reason for Referral * Consultation (Routine) - Authorized Specialty Diagnoses / Procedures Referred By Diana t Referred To Contact Neurology Diagnoses Trigeminal neuralgia syndrome Adrian Gibson MD [address] [place] [phone] Phone: tel: fax: [facility] [address], [address] [place] [address] Phone: tel: fax: Referral ID Status Reason Start Date Expiration Date Visits Requested Visits Authorized [id number] Authorized Specialty Services Required 01/28/2025 07/30/2026 1 1 Scheduling Instructions Please call this patient to set up an appointment within the next month or so Reason for Visit * Reason Comments Dental Pain Encounter Details Date Type Department Care Team ([facility] st Contact Info) Description 01/28/2025 10:11 AM EDT - 01/28/2025 1:01 PM EDT Emergency [facility] [address] [place] [address] Adrian Gibson MD [address] [place] [phone] Trigeminal neuralgia syndrome (Primary Dx) Discharge Disposition: Home or Self Care Social History Tobacco Use Types Packs/Day Years Used Date Smoking Tobacco: Former Cigarettes 1 30 1 950 - 1979 Smokeless Tobacco: Never Alcohol Use [...] Sign Reading Time Taken Comments Blood Pressure 134/87 01/28/2025 12:56 PM EDT Pulse 79 01/28/2025 12:56 PM EDT Temperature 36.2 C (97.2 F) 01/28/2025 9:39 AM EDT Respiratory Rate 18 01/28/2025 9:39 AM EDT Oxygen Saturation 98% 01/28/2025 12:56 PM EDT Inhaled Oxygen Concentration - - Weight 83 kg (183 lb) 01/28/2025 9:39 AM EDT Height 190.5 cm (6' 3 ) 01/28/2025 9:39 AM EDT Body Mass Index 22.87 01/28/2025 9:39 AM EDT documented in this encounter Functional Status * Calculated C-SSRS Risk Score (Lifetime/Recent) Answer Date of Assessment Author No Risk Indicated 01/28/2025 10:21 AM EDT Barry Martínez RN * Question Answer Date of Assessment Author 1. Wish to be (Past 1 Month) No 01/28/2025 10:21 AM EDT Barry Landry RN 2. Non-Specific Active Suici mejia Thoughts (Past 1 Month) No 01/28/2025 10:21 AM EDT Rhett Landry RN 6. Suicidal Behavior (Lifetime) No 10:21 AM EDT Barry Landry RN documented as of this encounter Discharge Instructions * Discharge Instructions* Suellen Hassan MD - 01/28/2025 12:46 PM EDT If you do not hear from [facility] in the next few days, please give them a call to set up an appointment. Take your new medication as prescribed. documented in this encounter Medications at Time of Discharge [...] BEDTIME 01/15/2022 documented as of this encounter Miscellaneous Notes * Ej Calix - Suellen Hassan MD - 01/28/2025 12:45 PM EDT Images from the original note were not included. [id number] Trigeminal Neuralgia You have trigeminal neuralgia. This is pain caused by irritation of the trigeminal nerve on your face. Symptoms include sudden, sharp pain in your head, face, or jaw. It may feel like an electric shock. It can last for several seconds or minutes. It often happens on only 1 side of your face. Pain may be set off by things such as moving your jaw when brushing your teeth or eating. Or by a touch onthe skin of your face or cold air. The pain may be caused by something irritating the trigeminal nerve, such as a blood vessel pressing against it. But the exact cause of this problem often isn?t known. It can be very painful. But the condition isn?t dangerous. Some people have underlying health problems causing trigeminal neuralgia, such as multiple sclerosis. Trigeminal neuralgia is often treated with medicines. These include antiseizure medicines or antidepressants. Certain other treatments may also help. In some cases, you may need surgery. For some people, radiation therapy is needed with a precise tool called gamma knife. This does not make any cuts(incisions). You may need an imaging test, such as a CT or MRI scan of the brain and skull. You will be advised if other health problems need treatment. Home care Your healthcare provider may prescribe medicines to help ease and prevent pain. Take all medicines as directed Please note that it may take several changes in dose and medicines before the right combination is found that controls the pain. General care: ? ? Don't do any specific activities that seem to set off the pain. ? Keep a pain diary for several weeks. Write down when your symptoms happen and how they feel. Certain activities, such as touching your face, chewing, talking, or brushing your teeth, may bring on the pain. Cold air can also set off the pain. Make sure you write down any triggers and discuss thesewith your provider. This will help guide treatment. Follow-up care Follow up with your healthcare provider, or as advised. If you were referred to a specialist, be sure to make an appointment. When to get medical advice Call your healthcare provider or get medical care right away if any of these occur: ? Fever of 100.4??F (38??C) or higher, or as advised by your provider ? Headache with very stiff neck ? You aren?t able to keep liquids down (repeated vomiting) ? Extreme drowsiness or confusion ? Dizziness or fainting ? A new feeling of weakness or numbness or tingling in your arm, leg, or face ? Trouble speaking or seeing Last Reviewed Date: 2024 00:00:00 ?? [id number] [employer]. All rights reserved. This information is not intended as a substitute for professional medical care. Always follow your healthcare professional's instructions. * ED Provider Notes - Suellen Hassan MD - 01/28/2025 9:35 AM EDT Images from the original note were not included. - HPI Chief Complaint Patient presents with Dental Pain [facility] NOTE Johnny Stroud is a 89 y.o. male w h/o Asthma, CHF, COPD, HTN, Sjorgren's syndrome who presents to the ED with Dental Pain. Pt c/o persistent right sided facial pain with intermittent numbness from jawup to forehead. Pt had dental extractions 08/08/24 and c/o numbness and episodic electric shock pain to right side of face and ear canal. 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 Santiago Morrell, reports he has had minor residual numbness to lower lip and drooling. Pt also reports the hearing aid on right side has been feeling tighter, leading himto be concerned for some ear swelling. Pt has a recent PET/CT whole body on 12/20. Pt denies fever, chills, N/V/D, abdominal pain, headache, dizziness, chest pain, SOA, and urinary symptoms. MAIN ED NOTE//Suellen Hassan MD: I assumed full responsibility for this patient after transfer to Main ED from [facility]. I personally performed my own history, ROS, and physical. I agree with the above [facility] documentation with no additions/exceptions History provided by: Patient asl interpreter used: No Patient History Past Medical History[1] Surgical History[2] Family History[3] Social History[4] Allergies: Allergies[5] Physical Exam ED Triage Vitals [01/28/25 0939] Temp Heart Rate Resp BP (!) 36.2 ??C (97.2 ??F) 103 18 (!) 132/91 SpO2 Temp src Heart Rate Source Patient Position 97 % -- -- -- BP Location FiO2 (%) -- -- Physical Exam Vitals and nursing note reviewed. Constitutional: General: He is not in acute distress. Appearance: Normal appearance. HENT: Head: Normocephalic and atraumatic. Right Ear: Tympanic membrane and ear canal normal. No swelling. Nose: No rhinorrhea. Mouth/Throat: Mouth: Mucous membranes are moist. Pharynx: Oropharynx is clear. Eyes: General: Right eye: No discharge. Left eye: No discharge. Conjunctiva/sclera: Conjunctivae normal. Pupils: Pupils are equal, round, and reactive to light. Pulmonary: Effort: Pulmonary effort is normal. No respiratory distress. Breath sounds: No stridor. Musculoskeletal: General: Normal range of motion. Cervical back: No rigidity. Skin: General: Skin is warm and dry. Neurological: Mental Status: He is alert and oriented to person, place, and time. Cranial Nerves: No dysarthria or facial asymmetry. Comments: Diminished right facial sensation Psychiatric: Mood and Affect: Mood normal. Behavior: Behavior normal. EASI ?? Total Score: 0 No data recorded Mini Nutritional Screening Score : 13 TRST Assessment Total: 1 ED Course & MDM - Assessment: 89 y.o. male presents to ED with complaint of right sided facial numbness, stabbing pain in similararea, and increased drooling from that side of his mouth. It should be noted that the chronic conditions includes Asthma, CHF, COPD, HTN, which currently is not at goal therapy. This complicates the clinical picture because it Comorbidities: may be exacerbating symptoms Differential Diagnosis: stroke, trigeminal neuralgia, TMJ, facial nerve palsy, dry socket, dental infection, ear infection In order to fully explore the differential diagnosis the following treatments and tests were ordered: ED Medication Administration from 01/28/2025 0935 to 01/28/2025 1608 Date/Time Order Dose Route Action 01/28/2025 1050 EDT iohexol (OMNIPaque) 350 MG/ML injection 100 mL 100 mL Intravenous Given All Other Orders Ordered Status Ordering Provider 01/28/25 1003 Hepatitis C Antibody - ED Once Final result JONATHAN WILKERSON 01/28/25 1003 ED Protocol - HIV 1/2 Antibody/Antigen Screen Once Final result JONATHAN WILKERSON 01/28/25 1003 ED HIV 1/2 Antibody/Antigen Screen w/Reflex to HIV 1/2 Differentiation PROCEDURE ONCE Final result JONATHAN WILKERSON P 01/28/[address] Face w IV Contrast Once Final result OJNATHAN WILKERSON P 01/28/[address] Angio Neck Once Final result JONATHAN WILKERSON 01/28/[address] Angio Head Once Final result JONATHAN WILKERSON 01/28/25 1003 CMP STAT Final result JONATHAN WILKERSON 01/28/25 1003 CBC w/diff STAT Final result JONATHAN WILKERSON P 01/28/25 1003 PT-INR STAT Final result JONATHAN WILKERSON P 01/28/25 1003 APTT STAT Final result JONATHAN WILKERSON P 01/28/25 1003 Once Canceled JONATHAN WILKERSON 01/28/25 1245 Discharge Ambulatory referral to Neurology Comments: Trigeminal neuralgia Ordered SUELLEN HASSAN ED Course as of 01/28/25 1608 TueJan 28, 2025 1000 Patient has decreased sensation on the R side of his face. Otherwise has no motor deficits. Patient is not tender to the touch in that area [CJ] 1001 CBC w/diff(!) CBC was within normal limits. No actionable leukocytosis or leukopenia, anemia or polycythemia. Normal platelets. No evidence of infection, inflammation, bleeding, or bone marrow suppression. [CJ] 1002 CMP(!) CMP was unremarkable for any actionable electrolyte derangement, elevated creatine, or transaminitis. BUN and creatinine are within normal limits, indicating preserved renal function. Glucose is within normal range. Normal LFTs with no evidence of hepatic injury or cholestasis. No clear signs of deh ydration. [CJ] 1003 CT Face w IV Contrast CT independently reviewed by me and showed no acute pathology. [CJ] 1005 CT Angio Head CTA independently reviewed by me and showed no acute pathology. No obvious stenosis or areas of filling defect [CJ] 1006 Based on physical exam, patient is likely experiencing trigeminal neuralgia. It fits with the clinical picture and is not explained by imaging or labs. [CJ] 1010 Talked with pharmacy about interactions with his medications and they suggested oxcarbazepine.Will set him up with follow up with neurology [CJ] ED Course User Index [CJ] Suellen Hassan MD Clinical Impressions as of 01/28/25 1608 Trigeminal neuralgia syndrome Social Determinates of Health Risks (including Economic Stability, Education and level of understanding, Healthcare access and quality and concerning social factors): None identified on this visit Ultimately, this patient was Was discharged Home (Discharge) The encounter diagnosis was Trigeminal neuralgia syndrome. . Patient was counseled on the diagnoses. Discharge medications if any are listed below. Listed medications are thought be either curative for listed diagnoses or will help control ongoing symptoms. Patient is requested to follow up with Patient's Primary Care Provider and Neurology in order to obtain routine follow-up. Instructions on follow up as well as precautions to return to the ER provided verbally by the EM provider,as well as written in patients discharge education packet. ED Prescriptions Medication Sig Dispense Start Date End Date Auth. Provider OXcarbazepine ER 150 MG tablet sustained-release 24 hour (Status: Discontinued) Take 150 mg by mouth 2 times a day. 60 tablet 01/28/2025 01/28/2025 Adrian Gibson MD OXcarbazepine ER 150 MG tablet sustained-release 24 hour (Status: Discontinued) Take 150 mg by mouth 2 times a day. 60 tablet 01/28/2025 01/28/2025 Adrian Gibson MD OXcarbazepine (Trileptal) 150 MG tablet Take 1 tablet by mouth 2 times a day. 60 tablet 01/28/2025 02/27/2025 Adrian Gibson MD Discharge Instructions If you do not hear from [facility] in the next few days, please give them a call to set up an appointment. Take your new medication as prescribed. Disposition Discharge AVS ([place] Snapshot) - Printed 01/28/2025 Follow-Ups Follow up with Coleman Fitzgerald MD; As needed Follow up with [facility] (Neurology) Follow up with [facility] (Neurology) Discharge Orders Discharge Ambulatory referral to [facility] Authorized - PIT Date/Time: 01/28/2025, 9:49 AM Entered by Samaria Pearson acting as scribe for Serge Carranza MD. Attending Attestation: The documentation was recorded by Samaria Pearson acting as scribe in my presence at the time of the encounter and accurately reflects the service I personally performed. [1] Past Medical History: Diagnosis Date Asthma CHF (congestive heart failure) ([facility]) COPD (chronic obstructive pulmonary disease) ([facility]) Dental caries Dry mouth HL (hearing loss) Hypertension Sjogren's syndrome ([facility]) [2] Past Surgical History: Procedure Laterality Date CARDIAC DEFIBRILLATOR PLACEMENT CARDIAC SURGERY GALLBLADDER SURGERY 04/07/2023 KNEE SURGERY OTHER SURGICAL HISTORY Removal of lip section via surgeon, hard area [3] Family History Problem Relation Name Age of Onset Heart disease Mother Heart disease Father Cancer Other Mother's brother [4] Tobacco Use Smoking status: Former Current packs/day: 0.00 Average packs/day: 1 pack/day for 30.0 years (30.0 ttl pk-yrs) Types: Cigarettes Start date: 1949 Quit date: 1979 Years since quittin.7 Smokeless tobacco: Never Vaping Use Vaping status: Never Used Substance Use Topics Alcohol use: Not Currently Drug use: Never [5] Allergies Allergen Reactions Cephalexin Itching Penicillins Unknown - Patient states they do not know rxn details Sulfa Drugs Unknown - Patient states they do not know rxn details Suellen Hassan MD Resident 01/28/25 1609 Cosigned by Adrian Gibson MD at 01/28/2025 8:38 PM EDT Associated attestation - Adrian Gibson MD - 01/28/2025 8:38 PM EDT I saw and evaluated the patient with the resident/fellow. I discussed the case with the resident/fellow and agree with the findings and plan as documented. * ED Triage Notes - Esperanza Ashley RN - 01/28/2025 9:35 AM EDT Pt had dental pain and facial swelling on the right x3 months. Pt feels like it is worsening now. documented in this encounter Plan of Treatment Upcoming Encounters Date Type Department Care Team (Late st Contact Info) Description 09/17/2025 1:10 PM EDT Consult [place] [facility] [address] [place] [address] Reyna Padilla, ANJEL [address] [place] [phone] Scheduled Referrals Name Type Priority Associated Diagnoses Order Schedule Discharge Ambulatory referral to Neurology Outpatient Referral Routine Trigeminal neuralgia syndrome Expected: 01/28/2025 (Approximate), Expires: 2026 documented as of this encounter Procedures Procedure Name Priority Date/Time Associated Diagnosis Comments CT ANGIO NECK STAT 01/28/2025 10:[address] FACE W IV CONTRAST STAT 01/28/2025 10:[address] ANGIO HEAD STAT 01/28/2025 10:54 AM EDT ED HIV 1/2 ANTIBODY/ANTIGEN SCREEN WITH REFLEX TO HIV I/II DIFFERENTIATION STAT 01/28/2025 10:10 AM EDT ED PROTOCOL HIV 1/2 ANTIBODY/ANTIGEN SCREEN W/REFLEX TO HIV 1/2 ANTIBODY DIFFERENTIATION STAT 01/28/2025 10:10 AM EDT HEPATITIS C ANTIBODY - ED W/REFLEX TO HCV QUANT PCR STAT 01/28/2025 10:10 AM EDT APTT STAT 01/28/2025 10:10 AM EDT PROTHROMBIN TIME(PT) / INR STAT 01/28/2025 10:10 AM EDT CBC WITH AUTO DIFFERENTIAL STAT 01/28/2025 10:10 AM EDT COMPREHENSIVE METABOLIC PANEL, PLASMA STAT 01/28/2025 10:10 AM EDT documented in this encounter Results * CT Face w IV Contrast (01/28/2025 10:54 AM EDT) Anatomical Region Laterality Modality Facial bones Computed Tomogra phy Impressions 01/28/2025 12:06 PM EDT 1. Stable chronic right sphenoid sinusitis, but no gross abnormality along the course of right 5th nerve. 2. Indeterminate for superficial soft tissue swelling about the right lower lip. CRITICAL RESULT: No. CLINICAL INDICATION: Sensory abnormality, trigeminal origin (CN 5) TECHNIQUE: Head CTA: Axial images were obtained through the head during contrast bolus injection and multiplanar MIP images were created. Neck CTA: Axial images were obtained through the neck during bolus contrast injection and multiplanar reformatted and MIP images were created. 100 mL of Omnipaque 350 were administered intravenously. Total DLP (Dose-Length Product): 1397.74 mGy.cm (accession [id number]), 1397.74 mGy.cm (accession [id number]), 1397.74 mGy.cm (accession [id number]). Please note: The reported value represents the total of one or more individual components during the CT acquisition on this date and at this time, and as such, the same value may appear in more than one CT report depending on the interpreting/reporting physicians. COMPARISON: None. FINDINGS: Neck CTA: Diagnostic Quality: Adequate Aorta and Great Vessel Origins: There is no significant stenosis of the origins of the great arteries of the neck. Right Cervical Carotid System: The right common carotid artery and its origin are patent. There is minor multifocal calcific atherosclerotic plaque at the carotid bifurcation. There is a 0% stenosis at the bifurcation by NASCET criteria. There is no evidence of dissection or pseudoaneurysm of the right common and internal carotid arteries. Left Cervical Carotid System: The left common carotid artery and its origin are patent. There is minor multifocal calcific atherosclerotic plaque at the carotid bifurcation. There is a 0% stenosis at the bifurcation by NASCET criteria. There is no evidence of dissection or pseudoaneurysm of the left common and internal carotid arteries. Vertebral arteries: The origins appear atherosclerotic but patent. There is no evidence of a dissection, pseudoaneurysm, or significant stenosis of the vertebral arteries. Other Findings: Apical emphysema without bleb formation. No identified lung nodule. Status post median sternotomy and presumed left-sided pacing wires. Head CTA: Diagnostic Quality: Adequate Vertebrobasilar System: Bilateral multifocal V4 punctate atherosclerosis without suggested high-grade stenosis. The basilar artery and its major branches are within normal limits. There is no aneurysm. Carotid Arteries: Right ICA: Atherosclerosis without significant stenosis. Left ICA: Atherosclerosis without high-grade stenosis. Other Findings: There is no aneurysm of either internal carotid artery. [place] of [place] and Major Peripheral Branches: There is no significant stenosis or occlusion. There is no aneurysm. Right NANOTECHNOLOGIST. Other Findings: Normal right cavernous sinus. IMPRESSION: Neck CTA: No significant stenosis is present within the cervical carotid and vertebral systems. Head CTA: No significant intracranial arterial stenosis or aneurysm is present. CRITICAL RESULT: No. COMMUNICATION: Per this written report. Drafted by Dg Ornelas on 01/28/2025 11:34 AM Final report signed by Dg Ornelas on 01/28/2025 12:06 PM Narrative 01/28/2025 12:06 PM EDT CLINICAL INDICATION: Sensory abnormality, trigeminal origin (CN 5). 89 y.o. male w h/o Asthma, CHF, COPD, HTN, Sjorgren's syndrome who presents to the ED with Dental Pain. Pt c/o persistent right sided facial pain with intermittent numbness from jaw up to forehead. Pt had dental extractions 08/08/24 and c/o numbness and episodic electric shock pain to right side of face and ear canal. 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 Images were reconstructed in the axial plane in bone and soft tissue algorithm. Sagittal and coronal reformatted images were created. 100 mL of Omnipaque 300 Total DLP (Dose-Length Product): 1397.74 mGy.cm (accession [id number]), 1397.74 mGy.cm (accession [id number]), 1397.74 mGy.cm (accession [id number]). Please note: The reported value represents the total of one or more individual components during the CT acquisition on this date and at this time, and as such, the same value may appear in more than one CT report depending on the interpreting/reporting physicians. COMPARISON: CT soft tissue neck of June 19. FINDINGS: Diagnostic Quality: Adequate. Facial Bones: No acute fracture is present. As before, complete or virtual fusion of the right C4-5 facet joints with stable cervical kyphosis and spondylosis from C3 through C7. Edentulous. No areas of bone destruction such as to suggest metastatic disease. Edentulous with upper and lower plates in place. Intracranial Compartment: No gross abnormality. Particularly, the cavernous sinuses are normal. Normal foramen ovale, academic registrar space, and right-sided soft tissues generally. Orbit Soft Tissues: The globes are normal in appearance. No retrobulbar hematoma or mass is present. There is no significant preseptal soft tissue swelling. Paranasal Sinuses: Chronic right sphenoid sinusitis with inspissated thickening, no fluid level, and reactive sclerotic bone changes without bony destruction all of which appear stable. Normal stable and symmetric right pterygopalatine fossa. Soft Tissues: No significant soft tissue swelling is present. No enhancing lesions are present. No significant lymphadenopathy. However, soft tissue irregularity is present about the lower lip as on axial 16/3; dental artifact precludes accurate comparison with last CT head and neck; please correlate clinically. Procedure Note Dg Ornelas MD - 01/28/2025 CLINICAL INDICATION: Sensory abnormality, trigeminal origin (CN 5). 89 y.o. male w h/o Asthma,CHF, COPD, HTN, Sjorgren's syndrome who presents to the ED with DentalPain. Pt c/o persistent right sided facial pain with intermittent numbnessfrom jaw up to forehead. Pt had dental extractions 08/08/24 and c/onumbness and episodic electric shock pain to right side of face and earcanal. 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 Sagittal and coronal reformatted images were created. 100 mL ofOmnipaque 300 Total DLP (Dose-Length Product): 1397.74 mGy.cm (accession [id number]),1397.74 mGy.cm (accession [id number]), 1397.74 mGy.cm (accession [id number]).Please note: The reported value represents the total of one or moreindividual components during the CT acquisition on this date and at thistime, and as such, the same value may appear in more than one CT reportdepending on the interpreting/reporting physicians. COMPARISON: CT soft tissue neck of June 19. FINDINGS: Diagnostic Quality: Adequate. Facial Bones: No acute fracture is present. As before, complete or virtualfusion of the right C4-5 facet joints with stable cervical kyphosis andspondylosis from C3 through C7. Edentulous. No areas of bone destructionsuch as to suggest metastatic disease. Edentulous with upper and lowerplates in place. Intracranial Compartment: No gross abnormality. Particularly, thecavernous sinuses are normal. Normal foramen ovale, academic registrar space, andright-sided soft tissues generally. Orbit Soft Tissues: The globes are normal in appearance. No retrobulbarhematoma or mass is present. There is no significant preseptal soft tissueswelling. Paranasal Sinuses: Chronic right sphenoid sinusitis with inspissatedthickening, no fluid level, and reactive sclerotic bone changes withoutbony destruction all of which appear stable. Normal stable and symmetricright pterygopalatine fossa. Soft Tissues: No significant soft tissue swelling is present. No enhancinglesions are present. No significant lymphadenopathy. However, soft tissueirregularity is present about the lower lip as on axial 16/3; dentalartifact precludes accurate comparison with last CT head and neck; pleasecorrelate clinically. IMPRESSION: 1. Stable chronic right sphenoid sinusitis, but no gross abnormality alongthe course of right 5th nerve. 2. Indeterminate for superficial soft tissue swelling about the rightlower lip. CRITICAL RESULT: No. CLINICAL INDICATION: Sensory abnormality, trigeminal origin (CN 5) TECHNIQUE: Head CTA: Axial images were obtained through the head during contrastbolus injection and multiplanar MIP images were created. Neck CTA: Axial images were obtained through the neck during boluscontrast injection and multiplanar reformatted and MIP images werecreated. 100 mL of Omnipaque 350 were administered intravenously. Total DLP (Dose-Length Product): 1397.74 mGy.cm (accession [id number]),1397.74 mGy.cm (accession [id number]), 1397.74 mGy.cm (accession [id number]).Please note: The reported value represents the total of one or moreindividual components during the CT acquisition on this date and at thistime, and as such, the same value may appear in more than one CT reportdepending on the interpreting/reporting physicians. COMPARISON: None. FINDINGS: Neck CTA: Diagnostic Quality: Adequate Aorta and Great Vessel Origins: There is no significant stenosis of theorigins of the great arteries of the neck. Right Cervical Carotid System: The right common carotid artery and itsorigin are patent. There is minor multifocal calcific atheroscleroticplaque at the carotid bifurcation. There is a 0% stenosis at thebifurcation by NASCET criteria. There is no evidence of dissection orpseudoaneurysm of the right common and internal carotid arteries. Left Cervical Carotid System: The left common carotid artery and itsorigin are patent. There is minor multifocal calcific atheroscleroticplaque at the carotid bifurcation. There is a 0% stenosis at thebifurcation by NASCET criteria. There is no evidence of dissection orpseudoaneurysm of the left common and internal carotid arteries. Vertebral arteries: The origins appear atherosclerotic but patent. Thereis no evidence of a dissection, pseudoaneurysm, or significant stenosis ofthe vertebral arteries. Other Findings: Apical emphysema without bleb formation. No identifiedlung nodule. Status post median sternotomy and presumed left-sided pacingwires. Head CTA: Diagnostic Quality: Adequate Vertebrobasilar System: Bilateral multifocal V4 punctate atherosclerosiswithout suggested high-grade stenosis. The basilar artery and its majorbranches are within normal limits. There is no aneurysm. Carotid Arteries: Right ICA: Atherosclerosis without significant stenosis. Left ICA: Atherosclerosis without high-grade stenosis. Other Findings: There is no aneurysm of either internal carotid artery. [place] and Major Peripheral Branches: There is no significantstenosis or occlusion. There is no aneurysm. Right NANOTECHNOLOGIST. Other Findings: Normal right cavernous sinus. IMPRESSION: Neck CTA: No significant stenosis is present within the cervical carotid andvertebral systems. Head CTA: No significant intracranial arterial stenosis or aneurysm is present. CRITICAL RESULT: No. COMMUNICATION: Per this written report. Drafted by Dg Ornelas on 01/28/2025 11:34 AM Final report signed by Dg Ornelas on 01/28/2025 12:06 PM us Jonathan Wilkerson MD IMG CT PROCEDURES Final Result * CT Angio Neck (01/28/2025 10:54 AM EDT) Anatomical Region Laterality Modality Carotid Artery Computed Tomogra phy Impressions 01/28/2025 12:06 PM EDT 1. Stable chronic right sphenoid sinusitis, but no gross abnormality along the course of right 5th nerve. 2. Indeterminate for superficial soft tissue swelling about the right lower lip. CRITICAL RESULT: No. CLINICAL INDICATION: Sensory abnormality, trigeminal origin (CN 5) TECHNIQUE: Head CTA: Axial images were obtained through the head during contrast bolus injection and multiplanar MIP images were created. Neck CTA: Axial images were obtained through the neck during bolus contrast injection and multiplanar reformatted and MIP images were created. 100 mL of Omnipaque 350 were administered intravenously. Total DLP (Dose-Length Product): 1397.74 mGy.cm (accession [id number]), 1397.74 mGy.cm (accession [id number]), 1397.74 mGy.cm (accession [id number]). Please note: The reported value represents the total of one or more individual components during the CT acquisition on this date and at this time, and as such, the same value may appear in more than one CT report depending on the interpreting/reporting physicians. COMPARISON: None. FINDINGS: Neck CTA: Diagnostic Quality: Adequate Aorta and Great Vessel Origins: There is no significant stenosis of the origins of the great arteries of the neck. Right Cervical Carotid System: The right common carotid artery and its origin are patent. There is minor multifocal calcific atherosclerotic plaque at the carotid bifurcation. There is a 0% stenosis at the bifurcation by NASCET criteria. There is no evidence of dissection or pseudoaneurysm of the right common and internal carotid arteries. Left Cervical Carotid System: The left common carotid artery and its origin are patent. There is minor multifocal calcific atherosclerotic plaque at the carotid bifurcation. There is a 0% stenosis at the bifurcation by NASCET criteria. There is no evidence of dissection or pseudoaneurysm of the left common and internal carotid arteries. Vertebral arteries: The origins appear atherosclerotic but patent. There is no evidence of a dissection, pseudoaneurysm, or significant stenosis of the vertebral arteries. Other Findings: Apical emphysema without bleb formation. No identified lung nodule. Status post median sternotomy and presumed left-sided pacing wires. Head CTA: Diagnostic Quality: Adequate Vertebrobasilar System: Bilateral multifocal V4 punctate atherosclerosis without suggested high-grade stenosis. The basilar artery and its major branches are within normal limits. There is no aneurysm. Carotid Arteries: Right ICA: Atherosclerosis without significant stenosis. Left ICA: Atherosclerosis without high-grade stenosis. Other Findings: There is no aneurysm of either internal carotid artery. [place] and Major Peripheral Branches: There is no significant stenosis or occlusion. There is no aneurysm. Right NANOTECHNOLOGIST. Other Findings: Normal right cavernous sinus. IMPRESSION: Neck CTA: No significant stenosis is present within the cervical carotid and vertebral systems. Head CTA: No significant intracranial arterial stenosis or aneurysm is present. CRITICAL RESULT: No. COMMUNICATION: Per this written report. Drafted by Dg Ornelas on 01/28/2025 11:34 AM Final report signed by Dg Ornelas on 01/28/2025 12:06 PM Narrative 01/28/2025 12:06 PM EDT CLINICAL INDICATION: Sensory abnormality, trigeminal origin (CN 5). 89 y.o. male w h/o Asthma, CHF, COPD, HTN, Sjorgren's syndrome who presents to the ED with Dental Pain. Pt c/o persistent right sided facial pain with intermittent numbness from jaw up to forehead. Pt had dental extractions 08/08/24 and c/o numbness and episodic electric shock pain to right side of face and ear canal. 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 Images were reconstructed in the axial plane in bone and soft tissue algorithm. Sagittal and coronal reformatted images were created. 100 mL of Omnipaque 300 Total DLP (Dose-Length Product): 1397.74 mGy.cm (accession [id number]), 1397.74 mGy.cm (accession [id number]), 1397.74 mGy.cm (accession [id number]). Please note: The reported value represents the total of one or more individual components during the CT acquisition on this date and at this time, and as such, the same value may appear in more than one CT report depending on the interpreting/reporting physicians. COMPARISON: CT soft tissue neck of June 19. FINDINGS: Diagnostic Quality: Adequate. Facial Bones: No acute fracture is present. As before, complete or virtual fusion of the right C4-5 facet joints with stable cervical kyphosis and spondylosis from C3 through C7. Edentulous. No areas of bone destruction such as to suggest metastatic disease. Edentulous with upper and lower plates in place. Intracranial Compartment: No gross abnormality. Particularly, the cavernous sinuses are normal. Normal foramen ovale, academic registrar space, and right-sided soft tissues generally. Orbit Soft Tissues: The globes are normal in appearance. No retrobulbar hematoma or mass is present. There is no significant preseptal soft tissue swelling. Paranasal Sinuses: Chronic right sphenoid sinusitis with inspissated thickening, no fluid level, and reactive sclerotic bone changes without bony destruction all of which appear stable. Normal stable and symmetric right pterygopalatine fossa. Soft Tissues: No significant soft tissue swelling is present. No enhancing lesions are present. No significant lymphadenopathy. However, soft tissue irregularity is present about the lower lip as on axial 16; dental artifact precludes accurate comparison with last CT head and neck; please correlate clinically. Procedure Note Dg Ornelas MD - 01/28/2025 CLINICAL INDICATION: Sensory abnormality, trigeminal origin (CN 5). 89 y.o. male w h/o Asthma,CHF, COPD, HTN, Sjorgren's syndrome who presents to the ED with DentalPain. Pt c/o persistent right sided facial pain with intermittent numbnessfrom jaw up to forehead. Pt had dental extractions 08/08/24 and c/onumbness and episodic electric shock pain to right side of face and earcanal. 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 Sagittal and coronal reformatted images were created. 100 mL ofOmnipaque 300 Total DLP (Dose-Length Product): 1397.74 mGy.cm (accession [id number]),1397.74 mGy.cm (accession [id number]), 1397.74 mGy.cm (accession [id number]).Please note: The reported value represents the total of one or moreindividual components during the CT acquisition on this date and at thistime, and as such, the same value may appear in more than one CT reportdepending on the interpreting/reporting physicians. COMPARISON: CT soft tissue neck of June 19. FINDINGS: Diagnostic Quality: Adequate. Facial Bones: No acute fracture is present. As before, complete or virtualfusion of the right C4-5 facet joints with stable cervical kyphosis andspondylosis from C3 through C7. Edentulous. No areas of bone destructionsuch as to suggest metastatic disease. Edentulous with upper and lowerplates in place. Intracranial Compartment: No gross abnormality. Particularly, thecavernous sinuses are normal. Normal foramen ovale, academic registrar space, andright-sided soft tissues generally. Orbit Soft Tissues: The globes are normal in appearance. No retrobulbarhematoma or mass is present. There is no significant preseptal soft tissueswelling. Paranasal Sinuses: Chronic right sphenoid sinusitis with inspissatedthickening, no fluid level, and reactive sclerotic bone changes withoutbony destruction all of which appear stable. Normal stable and symmetricright pterygopalatine fossa. Soft Tissues: No significant soft tissue swelling is present. No enhancinglesions are present. No significant lymphadenopathy. However, soft tissueirregularity is present about the lower lip as on axial 16/3; dentalartifact precludes accurate comparison with last CT head and neck; pleasecorrelate clinically. IMPRESSION: 1. Stable chronic right sphenoid sinusitis, but no gross abnormality alongthe course of right 5th nerve. 2. Indeterminate for superficial soft tissue swelling about the rightlower lip. CRITICAL RESULT: No. CLINICAL INDICATION: Sensory abnormality, trigeminal origin (CN 5) TECHNIQUE: Head CTA: Axial images were obtained through the head during contrastbolus injection and multiplanar MIP images were created. Neck CTA: Axial images were obtained through the neck during boluscontrast injection and multiplanar reformatted and MIP images werecreated. 100 mL of Omnipaque 350 were administered intravenously. Total DLP (Dose-Length Product): 1397.74 mGy.cm (accession [id number]),1397.74 mGy.cm (accession [id number]), 1397.74 mGy.cm (accession [id number]).Please note: The reported value represents the total of one or moreindividual components during the CT acquisition on this date and at thistime, and as such, the same value may appear in more than one CT reportdepending on the interpreting/reporting physicians. COMPARISON: None. FINDINGS: Neck CTA: Diagnostic Quality: Adequate Aorta and Great Vessel Origins: There is no significant stenosis of theorigins of the great arteries of the neck. Right Cervical Carotid System: The right common carotid artery and itsorigin are patent. There is minor multifocal calcific atheroscleroticplaque at the carotid bifurcation. There is a 0% stenosis at thebifurcation by NASCET criteria. There is no evidence of dissection orpseudoaneurysm of the right common and internal carotid arteries. Left Cervical Carotid System: The left common carotid artery and itsorigin are patent. There is minor multifocal calcific atheroscleroticplaque at the carotid bifurcation. There is a 0% stenosis at thebifurcation by NASCET criteria. There is no evidence of dissection orpseudoaneurysm of the left common and internal carotid arteries. Vertebral arteries: The origins appear atherosclerotic but patent. Thereis no evidence of a dissection, pseudoaneurysm, or significant stenosis ofthe vertebral arteries. Other Findings: Apical emphysema without bleb formation. No identifiedlung nodule. Status post median sternotomy and presumed left-sided pacingwires. Head CTA: Diagnostic Quality: Adequate Vertebrobasilar System: Bilateral multifocal V4 punctate atherosclerosiswithout suggested high-grade stenosis. The basilar artery and its majorbranches are within normal limits. There is no aneurysm. Carotid Arteries: Right ICA: Atherosclerosis without significant stenosis. Left ICA: Atherosclerosis without high-grade stenosis. Other Findings: There is no aneurysm of either internal carotid artery. [place] and Major Peripheral Branches: There is no significantstenosis or occlusion. There is no aneurysm. Right NANOTECHNOLOGIST. Other Findings: Normal right cavernous sinus. IMPRESSION: Neck CTA: No significant stenosis is present within the cervical carotid andvertebral systems. Head CTA: No significant intracranial arterial stenosis or aneurysm is present. CRITICAL RESULT: No. COMMUNICATION: Per this written report. Drafted by Dg Ornelas on 01/28/2025 11:34 AM Final report signed by Dg Ornelas on 01/28/2025 12:06 PM us Jonathan Wilkerson MD IMG CT PROCEDURES Final Result * CT Angio Head (01/28/2025 10:54 AM EDT) Anatomical Region Laterality Modality [place] Computed Tomogr aphy Impressions 01/28/2025 12:06 PM EDT 1. Stable chronic right sphenoid sinusitis, but no gross abnormality along the course of right 5th nerve. 2. Indeterminate for superficial soft tissue swelling about the right lower lip. CRITICAL RESULT: No. CLINICAL INDICATION: Sensory abnormality, trigeminal origin (CN 5) TECHNIQUE: Head CTA: Axial images were obtained through the head during contrast bolus injection and multiplanar MIP images were created. Neck CTA: Axial images were obtained through the neck during bolus contrast injection and multiplanar reformatted and MIP images were created. 100 mL of Omnipaque 350 were administered intravenously. Total DLP (Dose-Length Product): 1397.74 mGy.cm (accession [id number]), 1397.74 mGy.cm (accession [id number]), 1397.74 mGy.cm (accession [id number]). Please note: The reported value represents the total of one or more individual components during the CT acquisition on this date and at this time, and as such, the same value may appear in more than one CT report depending on the interpreting/reporting physicians. COMPARISON: None. FINDINGS: Neck CTA: Diagnostic Quality: Adequate Aorta and Great Vessel Origins: There is no significant stenosis of the origins of the great arteries of the neck. Right Cervical Carotid System: The right common carotid artery and its origin are patent. There is minor multifocal calcific atherosclerotic plaque at the carotid bifurcation. There is a 0% stenosis at the bifurcation by NASCET criteria. There is no evidence of dissection or pseudoaneurysm of the right common and internal carotid arteries. Left Cervical Carotid System: The left common carotid artery and its origin are patent. There is minor multifocal calcific atherosclerotic plaque at the carotid bifurcation. There is a 0% stenosis at the bifurcation by NASCET criteria. There is no evidence of dissection or pseudoaneurysm of the left common and internal carotid arteries. Vertebral arteries: The origins appear atherosclerotic but patent. There is no evidence of a dissection, pseudoaneurysm, or significant stenosis of the vertebral arteries. Other Findings: Apical emphysema without bleb formation. No identified lung nodule. Status post median sternotomy and presumed left-sided pacing wires. Head CTA: Diagnostic Quality: Adequate Vertebrobasilar System: Bilateral multifocal V4 punctate atherosclerosis without suggested high-grade stenosis. The basilar artery and its major branches are within normal limits. There is no aneurysm. Carotid Arteries: Right ICA: Atherosclerosis without significant stenosis. Left ICA: Atherosclerosis without high-grade stenosis. Other Findings: There is no aneurysm of either internal carotid artery. [place] and Major Peripheral Branches: There is no significant stenosis or occlusion. There is no aneurysm. Right NANOTECHNOLOGIST. Other Findings: Normal right cavernous sinus. IMPRESSION: Neck CTA: No significant stenosis is present within the cervical carotid and vertebral systems. Head CTA: No significant intracranial arterial stenosis or aneurysm is present. CRITICAL RESULT: No. COMMUNICATION: Per this written report. Drafted by Dg Ornelas on 01/28/2025 11:34 AM Final report signed by Dg Ornelas on 01/28/2025 12:06 PM Narrative 01/28/2025 12:06 PM EDT CLINICAL INDICATION: Sensory abnormality, trigeminal origin (CN 5). 89 y.o. male w h/o Asthma, CHF, COPD, HTN, Sjorgren's syndrome who presents to the ED with Dental Pain. Pt c/o persistent right sided facial pain with intermittent numbness from jaw up to forehead. Pt had dental extractions 08/08/24 and c/o numbness and episodic electric shock pain to right side of face and ear canal. 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 Images were reconstructed in the axial plane in bone and soft tissue algorithm. Sagittal and coronal reformatted images were created. 100 mL of Omnipaque 300 Total DLP (Dose-Length Product): 1397.74 mGy.cm (accession [id number]), 1397.74 mGy.cm (accession [id number]), 1397.74 mGy.cm (accession [id number]). Please note: The reported value represents the total of one or more individual components during the CT acquisition on this date and at this time, and as such, the same value may appear in more than one CT report depending on the interpreting/reporting physicians. COMPARISON: CT soft tissue neck of June 19. FINDINGS: Diagnostic Quality: Adequate. Facial Bones: No acute fracture is present. As before, complete or virtual fusion of the right C4-5 facet joints with stable cervical kyphosis and spondylosis from C3 through C7. Edentulous. No areas of bone destruction such as to suggest metastatic disease. Edentulous with upper and lower plates in place. Intracranial Compartment: No gross abnormality. Particularly, the cavernous sinuses are normal. Normal foramen ovale, academic registrar space, and right-sided soft tissues generally. Orbit Soft Tissues: The globes are normal in appearance. No retrobulbar hematoma or mass is present. There is no significant preseptal soft tissue swelling. Paranasal Sinuses: Chronic right sphenoid sinusitis with inspissated thickening, no fluid level, and reactive sclerotic bone changes without bony destruction all of which appear stable. Normal stable and symmetric right pterygopalatine fossa. Soft Tissues: No significant soft tissue swelling is present. No enhancing lesions are present. No significant lymphadenopathy. However, soft tissue irregularity is present about the lower lip as on axial 16/3; dental artifact precludes accurate comparison with last CT head and neck; please correlate clinically. Procedure Note Dg Ornelas MD - 01/28/2025 CLINICAL INDICATION: Sensory abnormality, trigeminal origin (CN 5). 89 y.o. male w h/o Asthma,CHF, COPD, HTN, Sjorgren's syndrome who presents to the ED with DentalPain. Pt c/o persistent right sided facial pain with intermittent numbnessfrom jaw up to forehead. Pt had dental extractions 08/08/24 and c/onumbness and episodic electric shock pain to right side of face and earcanal. 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 Sagittal and coronal reformatted images were created. 100 mL ofOmnipaque 300 Total DLP (Dose-Length Product): 1397.74 mGy.cm (accession [id number]),1397.74 mGy.cm (accession [id number]), 1397.74 mGy.cm (accession [id number]).Please note: The reported value represents the total of one or moreindividual components during the CT acquisition on this date and at thistime, and as such, the same value may appear in more than one CT reportdepending on the interpreting/reporting physicians. COMPARISON: CT soft tissue neck of June 19. FINDINGS: Diagnostic Quality: Adequate. Facial Bones: No acute fracture is present. As before, complete or virtualfusion of the right C4-5 facet joints with stable cervical kyphosis andspondylosis from C3 through C7. Edentulous. No areas of bone destructionsuch as to suggest metastatic disease. Edentulous with upper and lowerplates in place. Intracranial Compartment: No gross abnormality. Particularly, thecavernous sinuses are normal. Normal foramen ovale, academic registrar space, andright-sided soft tissues generally. Orbit Soft Tissues: The globes are normal in appearance. No retrobulbarhematoma or mass is present. There is no significant preseptal soft tissueswelling. Paranasal Sinuses: Chronic right sphenoid sinusitis with inspissatedthickening, no fluid level, and reactive sclerotic bone changes withoutbony destruction all of which appear stable. Normal stable and symmetricright pterygopalatine fossa. Soft Tissues: No significant soft tissue swelling is present. No enhancinglesions are present. No significant lymphadenopathy. However, soft tissueirregularity is present about the lower lip as on axial 16/; dentalartifact precludes accurate comparison with last CT head and neck; pleasecorrelate clinically. IMPRESSION: 1. Stable chronic right sphenoid sinusitis, but no gross abnormality alongthe course of right 5th nerve. 2. Indeterminate for superficial soft tissue swelling about the rightlower lip. CRITICAL RESULT: No. CLINICAL INDICATION: Sensory abnormality, trigeminal origin (CN 5) TECHNIQUE: Head CTA: Axial images were obtained through the head during contrastbolus injection and multiplanar MIP images were created. Neck CTA: Axial images were obtained through the neck during boluscontrast injection and multiplanar reformatted and MIP images werecreated. 100 mL of Omnipaque 350 were administered intravenously. Total DLP (Dose-Length Product): 1397.74 mGy.cm (accession [id number]),1397.74 mGy.cm (accession [id number]), 1397.74 mGy.cm (accession [id number]).Please note: The reported value represents the total of one or moreindividual components during the CT acquisition on this date and at thistime, and as such, the same value may appear in more than one CT reportdepending on the interpreting/reporting physicians. COMPARISON: None. FINDINGS: Neck CTA: Diagnostic Quality: Adequate Aorta and Great Vessel Origins: There is no significant stenosis of theorigins of the great arteries of the neck. Right Cervical Carotid System: The right common carotid artery and itsorigin are patent. There is minor multifocal calcific atheroscleroticplaque at the carotid bifurcation. There is a 0% stenosis at thebifurcation by NASCET criteria. There is no evidence of dissection orpseudoaneurysm of the right common and internal carotid arteries. Left Cervical Carotid System: The left common carotid artery and itsorigin are patent. There is minor multifocal calcific atheroscleroticplaque at the carotid bifurcation. There is a 0% stenosis at thebifurcation by NASCET criteria. There is no evidence of dissection orpseudoaneurysm of the left common and internal carotid arteries. Vertebral arteries: The origins appear atherosclerotic but patent. Thereis no evidence of a dissection, pseudoaneurysm, or significant stenosis ofthe vertebral arteries. Other Findings: Apical emphysema without bleb formation. No identifiedlung nodule. Status post median sternotomy and presumed left-sided pacingwires. Head CTA: Diagnostic Quality: Adequate Vertebrobasilar System: Bilateral multifocal V4 punctate atherosclerosiswithout suggested high-grade stenosis. The basilar artery and its majorbranches are within normal limits. There is no aneurysm. Carotid Arteries: Right ICA: Atherosclerosis without significant stenosis. Left ICA: Atherosclerosis without high-grade stenosis. Other Findings: There is no aneurysm of either internal carotid artery. [place] and Major Peripheral Branches: There is no significantstenosis or occlusion. There is no aneurysm. Right NANOTECHNOLOGIST. Other Findings: Normal right cavernous sinus. IMPRESSION: Neck CTA: No significant stenosis is present within the cervical carotid andvertebral systems. Head CTA: No significant intracranial arterial stenosis or aneurysm is present. CRITICAL RESULT: No. COMMUNICATION: Per this written report. Drafted by Dg Ornelas on 01/28/2025 11:34 AM Final report signed by Dg Ornelas on 01/28/2025 12:06 PM us Jonathan Wilkerson MD IMG CT PROCEDURES Final Result * ED HIV 1/2 Antibody/Antigen Screen w/Reflex to HIV 1/2 Differentiation (01/28/2025 10:10 AM EDT) Pathologist [facility] HIV 1 & 2 Antibody/Antigen Screen Non Reactive Non Reactive 01/28/2025 11:16 AM EDT [facility] Comment:Screening for HIV 1 & 2 antibodies, and P24 antigen is NONREACTIVE. No confirmatory testing is required. Blood Venous blood specimen / Unknown Venipuncture / Unknown 01/28/2025 10:10 AM EDT 01/28/2025 10:33 AM EDT us Jonathan Wilkerson MD LAB BLOOD ORDERABLES Fin al Result Performing Organization Address City/[facility]/ZIP Co de Phone Number [facility] [address] [place] [address] * Hepatitis C Antibody - ED (01/28/2025 10:10 AM EDT) Pathologist [facility] Hepatitis C Antibody Negative Negative 01/28/2025 11:16 AM EDT [facility] Blood Venous blood specimen / Unknown Venipuncture / Unknown 01/28/2025 10:10 AM EDT 01/28/2025 10:34 AM EDT us Jonathan Wilkerson MD LAB BLOOD ORDERABLES Fin al Result Performing Organization Address City/[facility]/ZIP Co de Phone Number [facility] [address] [place] [address] * APTT (01/28/2025 10:10 AM EDT) [facility] aPTT 25 25 - 35 sec 01/28/2025 10:29 AM EDT [facility] Blood Venous blood specimen / Unknown Venipuncture / Unknown 01/28/2025 10:10 AM EDT 01/28/2025 10:16 AM EDT us Jonathan Wilkerson MD LAB BLOOD ORDERABLES Fin al Result Performing Organization Address City/[facility]/ZIP Co de Phone Number [facility] [address] [place] [address] * PT-INR (01/28/2025 10:10 AM EDT) [facility] Prothrombin Time 13.1 12.0 - 14.3 sec 01/28/2025 10:29 AM EDT [facility] INR 1.0 0.9 - 1.1 01/28/2025 10:29 AM EDT [facility] Blood Venous blood specimen / Unknown Venipuncture / Unknown 01/28/2025 10:10 AM EDT 01/28/2025 10:16 AM EDT Narrative [facility] - 01/28/2025 10:29 AM EDT OPTIMAL INR RANGES FOR PATIENT ON ORAL ANTICOAGULANT THERAPY Prevention of venous thromboembolism INR 2.0 to 3.0 In patients with heart disease: Atrial fibrillation INR 2.0 to 3.0 Valvular heart disease INR 2.0 to 3.0 Tissue heart valves INR 2.0 to 3.0 Mechanical prosthetic valves INR 2.5 to 3.5 Prevention of recurrent OR INR 2.5 to 3.5 us Jonathan Wilkerson MD LAB BLOOD ORDERABLES [facility] al Result [facility] [address] [place] [address] * (ABNORMAL) CBC w/diff (01/28/2025 10:10 AM EDT) Pathologist [facility] WBC Count 10.34(H) 3.70 - 10.30 10*3/uL LAB HEMATOLOGY METHOD 01/28/2025 10:18 AM EDT [facility] RBC Count 4.29(L) 4.60 - 6.10 10*6/uL LAB HEMATOLOGY METHOD 01/28/2025 10:18 AM EDT [facility] HGB 13.2(L) 13.7 - 17.5 g/dL LAB HEMATOLOGY METHOD 01/28/2025 10:18 AM EDT [facility] HCT 39.6(L) 40.0 - 51.0 % LAB HEMATOLOGY METHOD 01/28/2025 10:18 AM EDT [facility] Platelet Count 163 155 - 369 10*3/uL LAB HEMATOLOGY METHOD 01/28/2025 10:18 AM EDT [facility] MCV 92 79 - 98 fL LAB HEMATOLOGY METHOD 01/28/2025 10:18 AM EDT [facility] MCH 30.8 26.0 - 32.0 pg LAB HEMATOLOGY METHOD 01/28/2025 10:18 AM EDT [facility] MCHC 33.3 30.7 - 35.5 g/dL LAB HEMATOLOGY METHOD 01/28/2025 10:18 AM EDT [facility] RDW 13.9 11.5 - 14.5 % LAB HEMATOLOGY METHOD 01/28/2025 10:18 AM EDT [facility] MPV 8.9 8.8 - 12.5 fL LAB HEMATOLOGY METHOD 01/28/2025 10:18 AM EDT [facility] nRBC 0.0 <=0.0 per 100 WBCs LAB HEMATOLOGY METHOD 01/28/2025 10:18 AM EDT [facility] Differential Type Automated LAB HEMATOLOGY METHOD 01/28/2025 10:18 AM EDT [facility] Neutrophils % 75 % LAB HEMATOLOGY METHOD 01/28/2025 10:18 AM EDT [facility] Lymphocytes % 17 % LAB HEMATOLOGY METHOD 01/28/2025 10:18 AM EDT [facility] Monocytes % 7 % LAB HEMATOLOGY METHOD 01/28/2025 10:18 AM EDT [facility] Eosinophils % 0 % LAB HEMATOLOGY METHOD 01/28/2025 10:18 AM EDT [facility] Basophils % 0 % LAB HEMATOLOGY METHOD 01/28/2025 10:18 AM EDT [facility] Immature Granulocytes % 1 % LAB HEMATOLOGY METHOD 01/28/2025 10:18 AM EDT [facility] Neutrophils Absolute 7.76(H) 1.60 - 6.10 10*3/uL LAB HEMATOLOGY METHOD 01/28/2025 10:18 AM EDT [facility] Lymphocytes Absolute 1.78 1.20 - 3.90 10*3/uL LAB HEMATOLOGY METHOD 01/28/2025 10:18 AM EDT [facility] Monocytes Absolute 0.69 0.30 - 0.90 10*3/uL LAB HEMATOLOGY METHOD 01/28/2025 10:18 AM EDT [facility] Eosinophils Absolute 0.02 0.00 - 0.50 10*3/uL LAB HEMATOLOGY METHOD 01/28/2025 10:18 AM EDT [facility] Basophils Absolute 0.02 0.00 - 0.10 10*3/uL LAB HEMATOLOGY METHOD 01/28/2025 10:18 AM EDT [facility] Immature Granulocytes Absolute 0.07(H) 0.00 - 0.06 10*3/uL LAB HEMATOLOGY METHOD 01/28/2025 10:18 AM EDT [facility] Blood Venous blood specimen / Unknown Venipuncture / Unknown 01/28/2025 10:10 AM EDT 01/28/2025 10:16 AM EDT Narrative [facility] - 01/28/2025 10:18 AM EDT Therapeutic decision making should be based on absolute values, rather than percentages. us Jonathan Wilkerson MD LAB BLOOD ORDERABLES Fin al Result [facility] [address] [place] [address] * (ABNORMAL) CMP (01/28/2025 10:10 AM EDT) Glucose, Plasma 95 74 - 99 mg/dL 01/28/2025 10:34 AM EDT [facility] BUN, Plasma 19 8 - 23 mg/dL 01/28/2025 10:34 AM EDT [facility] Creatinine, Plasma 1.06 0.70 - 1.20 mg/dL 01/28/2025 10:34 AM EDT [facility] BUN/Creatinine Ratio 18 01/28/2025 10:34 AM EDT [facility] Sodium, Plasma 135(L) 136 - 145 mmol/L 01/28/2025 10:34 AM EDT [facility] Potassium, Plasma 4.6 3.6 - 4.9 mmol/L 01/28/2025 10:34 AM EDT [facility] Chloride, Plasma 99 97 - 107 mmol/L 01/28/2025 10:34 AM EDT [facility] CO2, Plasma 26 22 - 29 mmol/L 01/28/2025 10:34 AM EDT [facility] Anion Gap 10 6 - 16 mmol/L 01/28/2025 10:34 AM EDT [facility] Total Calcium, Plasma 8.9 8.9 - 10.2 mg/dL 01/28/2025 10:34 AM EDT [facility] Total Protein 6.1(L) 6.3 - 7.9 g/dL 01/28/2025 10:34 AM EDT [facility] Albumin, Plasma 3.8 3.5 - 5.2 g/dL 01/28/2025 10:34 AM EDT [facility] AST, Plasma 12 10 - 50 U/L 01/28/2025 10:34 AM EDT [facility] ALT, Plasma 9(L) 10 - 50 U/L 01/28/2025 10:34 AM EDT [facility] Alkaline Phosphatase, Plasma 87 40 - 115 U/L 01/28/2025 10:34 AM EDT [facility] Total Bilirubin, Plasma 0.5 0.2 - 1.1 mg/dL 01/28/2025 10:34 AM EDT [facility] eGFRcr 67.1 mL/min/1.7 3m*2 01/28/2025 10:34 AM EDT [facility] Comment:Reported eGFRcr in m L/min/1.73m2 is based the CKD-EPI 2020 equation that does not use a race coefficient. Blood Venous blood specimen / Unknown Venipuncture / Unknown 01/28/2025 10:10 AM EDT 01/28/2025 10:16 AM EDT us Jonathan Wilkerson MD LAB BLOOD ORDERABLES Fin al Result [facility] [address] [place] [address] documented in this encounter Visit Diagnoses Diagnosis Trigeminal neuralgia syndrome- Primary Trigeminal neuralgia documented in this encounter Administered Medications Inactive Administered Medications - up to 3 most recent administrations Medication Order MAR Action Action Date Dose Rate Site iohexol (OMNIPaque) 350 MG/ML injection 100 mL 100 mL, Intravenous, Once in imaging, 1 dose, Starting on Tue01/28/25 at 1039, Until Tue01/28/25 at 1050, Routine, Imaging Protocol Orders Given 01/28/2025 10:50 AM EDT 100 mL documented in this encounter Active and Recently Administered Medications Times are shown in EDT. Scheduled Medication Order 01/26/2025 01/27/2025 01/28/2025 iohexol (OMNIPaque) 350 MG/ML injection 100 mL (COMPLETED) 100 mL, Intravenous, Once in imaging, 1 dose, Starting on Tue01/28/25 at 1039, Until Tue01/28/25 at 1050, Routine, Imaging Protocol Orders 1050 (Given - Provid er: Roxie Zacarias) documented in this encounter Additional Health Concerns Assessment Noted Time A fall risk assessment has been complete d for the patient 12/20/2024 2:47 PM EDT A Body Mass Index follow-up plan has been documented for the patient 12/21/2024 6:20 PM EDT documented as of this encounter Care Teams Reference Archivist Relationship Specialty Start Date End Date Colemna Fitzgerald MD [address] [place] [address] PCP - General 01/18/23 Herminio Tapia PA [address] [facility] [address] [place] [phone] Physician Voltage Regulator Assembler Otolaryngology 12/16/22 Santiago Morrell MD [address] [facility], [address] [address] Referring Physician 12/16/22 documented as of this encounter
[2025-02-03 10:55] VITALS: BP 131/85; PULSE 80; O2SAT 95
[2025-02-03 10:58] VITALS: BP 131/85; PULSE 82; RESP 18; TEMP 36.9; O2SAT 98; BMI 22.8
[2025-02-03 11:00] VITALS: BP 119/74; PULSE 65; O2SAT 98
--- OUTSIDE RECORDS SUMMARY | 2025-02-03 11:03 | XMS_ITS | Encounter Summary ---
Author Organization [employer] ([place], [place], [place], [place]) Address [address] [place] [address] Care Team Providers Care Pot Pusher Name Role Phone Coleman Fitzgerald MD Primary Care Provider [phone] Thalia Brito PA-C Unavailable [phone] Eduard Harris MD Unavailable Reason for Visit * Reason Comments Medication Refill Encounter Details Date Type Department Care Team (Late st Contact Info) Description 01/31/2025 Refill [facility] Cardiology [address] [place] [address] Thalia Brito, CHRISTIAN [address] [facility] [address] [place] [address] Social History Tobacco Use Types Packs/Day Years [...] Date Narinder rded Speak language other than [place]ian at home Not on file 06/10/2023 Want [...] Description 03/11/2025 1:30 PM EDT Office Visit [facility] Cardiology [address] [place] [address] Corina Gómez MD [address] [place] [address] documented as of this encounter Visit Diagnoses Not on filedocumented in this encounter Care Teams Pot Pusher Relationship Specialty Start Date End Date Coleman Fitzgerald MD [address] [place] [address] [place] [address] PCP - General Family Medicine 05/28/22 Thalia Brito, PA-C [address] [place] [address] [address] [place] [id number] Cardiology 01/07/23 [place] [address] [place] [address] [address] [place] [address] Cardiology 01/07/23 documented as of this encounter
--- OUTSIDE RECORDS SUMMARY | 2025-02-03 11:03 | XMS_ITS | Encounter Summary ---
Author Organization Healthcare Address [address] [place] [address] Care Team Providers Care Engraver Rubber Name Role Phone Herminio Tapia Unavailable [phone] Santiago Morrell MD Unavailable [phone] Coleman Fitzgerald MD Primary Care Provider [phone] Encounter Details Date Type Department Care Team (Latest Contact Info) Description 12/20/2024 Travel Social History Tobacco Use Types Packs/Day Years [...] Info) Description 09/17/2025 1:10 PM EDT Consult [facility] [address] [place] [address] Reyna Padilla PA [address] [place] [address] documented as of this encounter Visit Diagnoses Not on filedocumented in this encounter Additional Health Concerns Assessment Noted Time A fall risk assessment has been complete d for the patient 12/20/2024 2:47 PM EDT A Body Mass Index follow-up plan has been documented for the patient 12/21/2024 6:20 PM EDT documented as of this encounter Care Teams Engraver Rubber Relationship Specialty Start Date End Date Coleman Fitzgerald MD [address] [place], [place] [id number] PCP - General 01/18/23 Herminio Tapia PA [address] [facility] [place] [facility] [address] [place] [id number] Physician Superannuation Funds Manager Otolaryngology 12/16/22 Santiago Morrell MD [address] [facility], [address] [address] Referring Physician 12/16/22 documented as of this encounter
--- OUTSIDE RECORDS SUMMARY | 2025-02-03 11:03 | XMS_ITS | Encounter Summary ---
Author Organization [employer] ([place], [place], [place], [place]) Address [address] [place] [address] Care Team Providers Care Mixer Blender Name Role Phone Coleman Fitzgerald MD Primary Care Provider [phone] Thalia Brito PA-C Unavailable [phone] Eduard Harris MD Unavailable Encounter Details Date Type Department Care Team (Late st Contact Info) Description 12/23/2019 Transcribed Document [facility] Pulm & Critical Care Medicine [address] [facility] [address] [place] [address] Sergio Ramirez MD [address] [facility] [address] [place], [place] [id number] Social History Tobacco Use Types Packs/Day Years Used Date Smoking Tobacco: Never Assessed Sex and Gender Information Value Date Recorded Sex Assigned at Not on file Legal Sex Male 5:30 PM CDT Gender Identity Not on file Sexual Orientation Not on file documented as of this encounter Miscellaneous Notes * [employer] Conversion Note - Sergio Ramirez MD - 12/23/2019 12:39 PM EDT DATE OF SERVICE: 12/21/2019 REFERRING PHYSICIAN: Eduard Harris MD PATIENT DATA: 84 years old, 75 inches in height, 215 pounds, BMI 26.7, male. The patient had pulmonary function test and the flow volume loop meet ATS criteria. Spirometry data: FEV1 is 1.84 L (54%), FEV1/FVC ratio of 61, FVC is 3.01 L (63%). There were no post bronchodilator maneuvers performed. LUNG VOLUME BY PLETHYSMOGRAPHY: Total lung capacity 7.14 L (87%), FRC is 4.16 L (101%), RV is 3.86 L (124%). DLCO 20.6 (72%). IMPRESSION: 1. There is a moderate airflow obstruction categorizing as the chronic obstructive pulmonary disease group 2. 2. No evidence of restrictive lung disease noted. 3. Normal DLCO. 4. Clinical correlation is advised. /[id number] Sergio Ramirez MD EAC/AQ / EAC / MODL /[id number] CC: Eduard Harris MD documented in this encounter Plan of Treatment Upcoming Encounters Date Type Department Care Team (Late st Contact Info) Description 03/11/2025 1:30 PM EDT Office Visit [facility] Cardiology [address] [place] [address] Corina Gómez MD [address] [place], [place] [phone] documented as of this encounter Visit Diagnoses Not on filedocumented in this encounter Care Teams Mixer Blender Relationship Specialty Start Date End Date Coleman Fitzgerald MD [address] [place] [address] [place] [address] PCP - General Family Medicine 05/28/22 Thalia Brito, PA-C [address] [place] [address] [id number] Cardiology 01/07/23 Eduard Harris MD [address] [place] [address] [address] [place] [address] Cardiology 01/07/23 documented as of this encounter
--- OUTSIDE RECORDS SUMMARY | 2025-02-03 11:03 | XMS_ITS | Encounter Summary ---
Author Organization [employer] ([place], [place], [place], [place]) Address [address] [place] [address] Care Team Providers Care Drying Oven Attendant Name Role Phone Coleman Fitzgerald MD Primary Care Provider [phone] Thalia Brito PA-C Unavailable [phone] Eduard Harris MD Unavailable Encounter Details Date Type Department Care Team (Late st Contact Info) Description 06/06/2018 Transcribed Document [facility] [place] [facility] [place] [address] ProviderShannon MD [address] [place] [address] Social History Tobacco Use Types Packs/Day Years Used Date Smoking Tobacco: Never Assessed Sex and Gender Information Value Date Recorded Sex Assigned at Not on file Legal Sex Male 5:30 PM CDT Gender Identity Not on file Sexual Orientation Not on file documented as of this encounter Miscellaneous Notes * [employer]ner Conversion Note - Shannon ProviderMD - 06/06/2018 7:53 PM ORTHO TECH DATE OF STUDY: 06/06/2018 PATIENT DATA: Age: 82. Height: 75 inches. Weight: 211 pounds This is a complete pulmonary function test. SPIROMETRY: FVC 3.31 L, 68% predicted, FEV1 2.00 L, 68% predicted. FEV1/FVC 61. FLOW VOLUME LOOP: Flow volume loop shows convexity of the expiratory limb which suggests obstruction. LUNG VOLUME: TLC was 7.32 L, 97% predicted. RV was 3.78 L, 122% predicted. DIFFUSION CAPACITY: DLCO was 108% predicted. DLCO/VA was 117% predicted. INTERPRETATION: -Pulmonary function test suggests moderate obstructive lung disease. -Lung volume are increased suggest air trapping/hyperinflation. -If asthma is suspected, bronchodilator testing is recommended. Clinical correlation is suggested. Danielle Fernandez M.D. Dict: 06/06/2018 19:53:23 Trans: 06/07/2018 02:29:41 CC1: Danielle Fernandez M.D. Electronically signed by [facility] Conversion Program Review Director Cerner at 09/06/2022 9:34 AM CDT documented in this encounter Plan of Treatment Upcoming Encounters Date Type Department Care Team (Late st Contact Info) Description 03/11/2025 1:30 PM EDT Office Visit [facility] Cardiology [address] [place] [address] Corina Gómez MD [address] [place] [address] documented as of this encounter Visit Diagnoses Not on filedocumented in this encounter Care Teams Drying Oven Attendant Relationship Specialty Start Date End Date Coleman Fitzgerald MD [address] [place] [address] [place] [address] PCP - General Family Medicine 05/28/22 Thalia Brito PA-C [address] [place] [address] [place] [address] Cardiology 01/07/23 Eduard Harris MD [address] [place] [address] [address] [place] [address] Cardiology 01/07/23 documented as of this encounter
--- OUTSIDE RECORDS SUMMARY | 2025-02-03 11:03 | XMS_ITS | Referral Summary ---
Author Organization [facility] ([place], [place], [place], [place]) Address [address] [place] [address] Care Team Providers Care Freight Router Name Role Phone Coleman Fitzgerald MD Primary Care Provider [phone] Thalia Brito PA-C Unavailable [phone] Eduard Harris MD Unavailable Encounters Date Type Department Care Team Description 01/31/2025 Refill [facility] Cardiology [address] [place] [phone] Thalia Brito PA-C 01/03/2025 3:00 AM EDT Clinical Support [facility] Electrophysiology [address] [place] [phone] Morris Barr MD Encounter for adjustment or management of cardiac device (Primary Dx); AICD (automatic cardioverter/defibr illator) present; Ischemic cardiomyopathy; Chronic systolic congestive heart failure (HCC) 12/03/2024 5:00 AM EDT Clinical Support [facility] Electrophysiology [address] [place] [phone] Jackelin Almaguer MD Encounter for adjustment or management of cardiac device (Primary Dx); AICD (automatic cardioverter/defibr illator) present; Ischemic cardiomyopathy; Chronic systolic congestive heart failure (HCC) 11/30/2024 6:00 AM EDT Clinical Support [facility] Electrophysiology [address] [place] [phone] Jackelin Almaguer MD Encounter for adjustment or management of cardiac device (Primary Dx); AICD (automatic cardioverter/defibr illator) present; Ischemic cardiomyopathy; Chronic systolic congestive heart failure (HCC) from Last 3 Months Allergies Active Allergy Reactions Criticality Noted Date Comments Propoxyphene Itching 03/30/2018 Propoxyphene N-Acetaminophen 023 Sulfa (Sulfonamide Antibiotics) Hives,Itching High 1 05/30/2017 Medications aspirin 81 MG EC tablet Aspirin Low-Strength 81 mg tablet,delay ed release Daily Active clopidogreL (PLAVIX) 75 mg tablet Take by mouth. 04/14/2022 Active gabapentin (NEURONTIN) 100 MG capsule Take by mouth. 04/14/2022 Active montelukast (SINGULAIR) 10 mg tablet Take 1 tablet (10 mg total) by mouth. Active tamsulosin (FLOMAX) 0.4 mg Cap 24 hr capsule 1 capsule (0.4 mg total). Active zolpidem (AMBIEN) 10 mg tablet Take by mouth. 06/15/2022 Active atorvastatin (LIPITOR) 40 MG tablet TAKE 1 TABLET AT BEDTIME 90 tablet 3 11/08/2023 Active furosemide (LASIX) 20 MG tablet Take 1 tablet (20 mg total) by mouth daily. 20 tablet 08/02/2024 Active amiodarone (PACERONE) 200 MG tabletIndication s:Ventricular tachycardia (HCC) Take 0.5 tablets (100 mg total) by mouth daily. 45 tablet 3 09/10/2024 Active bisoprolol (ZEBETA) 5 MG tablet Take 0.5 tablets (2.5 mg total) by mouth nightly. 45 tablet 3 09/10/2024 09/11/19 26 Active lisinopriL (ZestriL) 2.5 MG tablet Take 1 tablet (2.5 mg total) by mouth daily. 90 tablet 3 09/10/2024 Active Active Problems Problem Noted Date Diagnosed Date Encounter for adjustment or management of cardia c device 06/22/2024 Chronic systolic congestive heart failure 2023 AICD (automatic cardioverter/defibrillator) pres ent 06/23/2022 Arteriosclerosis of coronary artery 03/27/2021 Ischemic cardiomyopathy 03/27/2021 Hypertension 03/27/2021 Chronic obstructive pulmonary disease 09/18/2020 Resolved Problems Problem Noted Date Diagnosed Date Resolved Date Other terminal operations manager (current) drug therapy 03/27/2021 10/12/2023 Presence of aortocoronary bypass graft 12/14/2019 10/12/2023 Social History Tobacco Use Types Packs/Day Years [...] Date Narinder rded Speak language other than Togolese at home Not on file 06/10/2023 Want [...] on file Sexual Orientation Not on file Last Filed Vital Signs Vital Sign Reading Time Taken Comments Blood Pressure 116/76 09/05/2024 1:44 PM EDT Pulse 80 09/05/2024 1:33 PM EDT Temperature - - Respiratory Rate - - Oxygen Saturation - - Inhaled Oxygen Concentration - - Weight 90.7 kg (200 lb) 09/05/2024 1:33 PM EDT Height 190.5 cm (6' 3 ) 09/05/2024 1:33 PM EDT Body Mass Index 25 09/05/2024 1:33 PM EDT Plan of Treatment Upcoming Encounters Date Type Department Care Team (Late st Contact Info) Description 03/11/2025 1:30 PM EDT Office Visit [facility] Cardiology [address] [place] [phone] Corina Gómez MD [address] [place], [place] [phone] Medical Devices Implanted Type Area Field Marketing Associate Device Identifier Shelf Expiration Date Model / Serial / Lot Icd-11/01/2016 Implanted:2016 (Quantity not on file) ICD [employer] / [id number] / Description:DEPENDENT Insurance [place]IC[place] [address] [place] [address] Care Teams Freight Router Relationship Specialty Start Date End Date Coleman Fitzgerald MD [address] [place] [address] [place] [address] PCP - General Family Medicine 05/28/22 Thalia Brito PA-C [address] [place] [address] [address] Cardiology 01/07/23 [place] [address] [place] [address] [address] Cardiology 01/07/23
--- OUTSIDE RECORDS SUMMARY | 2025-02-03 11:03 | XMS_ITS | Clinical Summary ---
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 10/12/2023 Encounters Date Type Department Care Team Description 01/31/2025 Refill [facility] Cardiology [address] [place], [place] [phone] Thalia Brito PA-C 01/03/2025 3:00 AM EDT Clinical Support [facility] Electrophysiology [address] [place], [place] [phone] Morris Barr MD Encounter for adjustment or management of cardiac device (Primary Dx); AICD (automatic cardioverter/defibr illator) present; Ischemic cardiomyopathy; Chronic systolic congestive heart failure (HCC) 12/03/2024 5:00 AM EDT Clinical Support [facility] Electrophysiology [address] [place] [phone] Jackelin Almaguer MD Encounter for adjustment or management of cardiac device (Primary Dx); AICD (automatic cardioverter/defibr illator) present; Ischemic cardiomyopathy; Chronic systolic congestive heart failure (HCC) 11/30/2024 6:00 AM EDT Clinical Support [facility] Electrophysiology [address] [place], [place] [phone] Jackelin Almaguer MD Encounter for adjustment or management of cardiac device (Primary Dx); AICD (automatic cardioverter/defibr illator) present; Ischemic cardiomyopathy; Chronic systolic congestive heart failure (HCC) from Last 3 Months Family History Medical History Relation Name Comments Intracerebral hemorrhage Father Heart disease Mother Relation Name Status Comments Father Mother Social History Tobacco Use Types Packs/Day Years [...] Date Narinder rded Speak language other than Moldovan at home Not on file 06/10/2023 Want [...] Description 03/11/2025 1:30 PM EDT Office Visit [facility] Cardiology [address] [place] [phone] Corina Gómez MD [address] [place] [phone] Health Maintenance Due Date Last Done Comments Medicare Initial AWV G0438 Depression Screening (12+) 1947 Shingles Vaccine (Zoster) (1 of 2) 07/31/1985 Respiratory Syncytial Virus (RSV) Adult or (1 - 1-dose 75+ series) 07/31/2010 Pneumococcal 50+ years (2 of 2 - PPSV23, PCV20, or PCV21) 04/17/2015 02/20/2015 Falls Risk Screening 05/23/2024 COVID-19 VACCINE (8 - 2023-2 5 season) 2025 02/21/2024, 03/24/2023, 03/02/2022, Additional history exists Influenza Vaccine (#1) 2025 , 03/03/2023, 02/16/2022 Tobacco Cessation Counseling and Screening (12+) 09/05/2025 09/05/2024 DTAP/TDAP/TD VACCINES (4 - T d or Tdap) 07/27/2029 07/28/2019, 12/26/2013, 12/26/2013 Medical Devices Implanted Type Area Hospital Aide Device Identifier Shelf Expiration Date Model / Serial / Lot Icd-11/01/2016 Implanted:2016 (Quantity not on file) ICD [employer] / [id number] / Description:DEPENDENT Insurance [place]IC[place] [address] [place] [address] Care Teams Pet Stylist Relationship Specialty Start Date End Date Coleman Fitzgerald MD [address] [place] [address] PCP - General Family Medicine 05/28/22 Thalia Brito PA-C [address] [place] [address] [place] [address] Cardiology 01/07/23 Eduard Harris MD [address] [place] [address] [address] Cardiology 01/07/23
--- OUTSIDE RECORDS SUMMARY | 2025-02-03 11:03 | XMS_ITS | Clinical Summary ---
Author Organization [facility] Address [address] [place] [place] [address] Care Team Providers Care Lawyer Criminal Name Role Phone Herminio Tapia Unavailable [phone] Santiago Morrell MD Unavailable [phone] oCleman Fitzgerald MD Primary Care Provider [phone] Allergies Active Allergy Reactions Criticality Noted Date Comments Cephalexin Itching Medium 12/20/2022 Penicillins Unknown - Patient st ates they do not know rxn details Low 12/20/2022 Sulfa Drugs Unknown - Patient st ates they do not know rxn details Low 12/20/2022 Medications gabapentin (Neurontin) 100 MG capsule gabapentin Acti ve amiodarone (Pacerone) 200 MG tablet Take 1 tablet (200 mg) by mouth 1 (one) time each day. Active aspirin 81 MG EC tablet Aspirin Low-Strength 81 mg tablet,delayed release Daily Active atorvastatin (Lipitor) 40 MG tablet 1 (one) time each day. Active carvedilol (Coreg) 3.125 MG tablet carvedilol 3.125 mg tablet Two times a day Active clopidogrel (Plavix) 75 MG tablet Take 1 tablet (75 mg) by mouth 1 (one) time each day. Active finasteride (Proscar) 5 MG tablet 1 (one) time each day. Active guaiFENesin (Humibid 3) 400 MG tablet Take 1 tablet (400 mg) by mouth. Active losartan (Cozaar) 50 MG tablet Take 1 tablet (50 mg) by mouth 1 (one) time each day. Active montelukast (Singulair) 10 MG tablet Take 1 tablet (10 mg) by mouth 1 (one) time each day. Active oxybutynin XL (Ditropan-XL) 10 MG 24 hr tablet 1 (one) time each day. Active tamsulosin (Flomax) 0.4 MG 24 hr capsule 1 capsule (0.4 mg) 1 (one) time each day. Active zolpidem (Ambien) 10 MG tablet TAKE 1 TABLET BY MOUTH ONCE A DAY AT BEDTIME 01/16/20 22 Active lisinopril-hyd roCHLOROthiazi de 10-12.5 MG tablet Take 1 tablet by mouth daily. Active bisoprolol (Zebeta) 5 MG tablet Take 1 tablet by mouth daily. Active OXcarbazepine (Trileptal) 150 MG tablet Take 1 tablet by mouth 2 times a day. 60 tablet 01/29/20 25 025 Active OXcarbazepine ER 150 MG tablet sustained-rele ase 24 hour Take 150 mg by mouth 2 times a day. 60 tablet 01/29/20 25 025 Discontinued OXcarbazepine ER 150 MG tablet sustained-rele ase 24 hour Take 150 mg by mouth 2 times a day. 60 tablet 01/29/20 25 025 Discontinued Active Problems Problem Noted Date Diagnosed Date Second hand smoke exposure 12/20/2022 Encounters Date Type Department Care Team Description 01/28/2025 10:11 AM EDT - 01/28/2025 1:01 PM EDT Emergency [facility] [address] [place] [address] Adrian Gibson MD Trigeminal neuralgia syndrome (Primary Dx) Discharge Disposition: Home or Self Care 01/28/2025 Refill [facility] [address] [place] [address]; Room [address] [place] [address] Adrian Gibson MD 01/28/2025 Travel 12/20/2024 3:00 PM EDT Office Visit [facility] [address] [facility], [address] [place] [id number] Huang Gonzalez MD Malignant melanoma of lip (CMS/HCC) 12/20/2024 10:26 AM EDT - 12/20/2024 11:59 PM EDT Hospital Encounter [facility] PET Scan [address] [place] [address] Discharge Disposition: Home or Self Care 12/20/2024 10:25 AM EDT Hospital Encounter [facility] PET Scan [address] [place] [address] Malignant melanoma of lip (CMS/HCC) Discharge Disposition: Home or Self Care 12/20/2024 Travel from Last 3 Months Family History Medical History Relation Name Comments Heart disease Father Heart disease Mother Cancer Other Mother's brother Relation Name Status Comments Father Mother Other Mother's brother Alive Social History Tobacco Use Types Packs/Day Years Used Date Smoking Tobacco: Former Cigarettes 30 1 - 1979 Smokeless Tobacco: Never Tobacco Cessation:Counseling [...] Mass Index 22.87 01/28/2025 9:39 AM EDT Plan of Treatment Upcoming Encounters Date Type Department Care Team (Late st Contact Info) Description 09/17/2025 1:10 PM EDT Consult [place] [facility] [address] [place] [address] Reyna Padilla, ANJEL [address] [place] [address] Health Maintenance Due Date Last Done Comments Dental Prophylaxis 1935 Dental X-Ray: Bitewings 1935 [facility]-Depression Screening 1935 [facility]-Medicare Annual Wellness (AWV) 1935 [facility]-/Child/Adol SDOH Screenings 1935 [facility]- SDOH Screenings 07/31/1953 [facility]-Adult SDOH Screenings 07/31/1953 [facility]-Zoster Vaccines (1 of 2) 07/31/1954 [facility]-Pneumococcal Vaccine: 50+ Years (2 of 2 - PPSV23, PCV20, or PCV21) 04/17/2015 02/20/2015, 11/05/2005 Dental Oral Exam 08/19/2022 02/18/2022 [id number] Vaccine (8 - Moderna risk 2023- season) 2025 02/21/2024, 03/24/2023, 03/02/2022, Additional history exists [facility]-Influenza Vaccine (#1) 01/21/202502/09, 03/03/2023, 02/16/2022, Additional history exists Dental X-Ray: Full Mouth 02/03/2025 02/02/2022 [facility]-DTaP,Tdap,and Td Vaccines (4 - Td or Tdap) 07/27/2029 07/28/2019, 12/26/2013, 12/26/2013, Additional history exists [facility]-RSV Vaccine: 60+ Years or Completed 03/09/2024 HPV Vaccines Aged Out No longer eligi ble based on patient's age to complete this topic [facility]-HIB Vaccines Aged Out No longer e ligible based on patient's age to complete this topic [facility]-Hepatitis A Vaccines Aged Out No longer eligible based on patient's age to complete this topic [facility]-IPV Vaccines Aged Out No longer e ligible based on patient's age to complete this topic [facility]-Rotavirus Vaccines Aged Out No lo nger eligible based on patient's age to complete this topic Procedures Procedure Name Priority Date/Time Associated Diagnosis Comments CT FACE W IV CONTRAST STAT 01/28/2025 10:[address] ANGIO NECK STAT 01/28/2025 10:[address] ANGIO [...] PANEL, PLASMA STAT 01/28/2025 10:10 AM EDT PET/CT FDG WHOLE BODY Routine 12/20/2024 12:29 PM EDT Malignant melanoma of lip (CMS/HCC) COMPREHENSIVE ORAL EVALUATION - NEW OR ESTABLISHED PATIENT Routine 02/18/2022 9:00 AM EDT Encounter for dental examination and cleaning with abnormal findings PANORAMIC RADIOGRAPHIC IMAGE Routine 02/02/2022 1:00 PM EDT Encounter for dental examination from Last 3 Months or Most Recently Relevant to Health Maintenance Results * CT Angio Neck (01/28/2025 10:54 AM [...] Total DLP (Dose-Length Product): 1397.74 mGy.cm (accession [id number]), 1397.74 mGy.cm (accession [id number]), 1397.74 mGy.cm (accession [id number]). Please note: The reported value represents the [...] no aneurysm of either internal carotid artery. Beaver of Pardo and Major Peripheral Branches: There is no significant stenosis or occlusion. There is no aneurysm. Right PAINT MIXER. Other Findings: Normal right cavernous sinus. IMPRESSION: [...] Total DLP (Dose-Length Product): 1397.74 mGy.cm (accession [id number]), 1397.74 mGy.cm (accession [id number]), 1397.74 mGy.cm (accession [id number]). Please note: The reported value represents the [...] cavernous sinuses are normal. Normal foramen ovale, carry in worker space, and right-sided soft tissues generally. Orbit [...] Total DLP (Dose-Length Product): 1397.74 mGy.cm (accession [id number]),1397.74 mGy.cm (accession [id number]), 1397.74 mGy.cm (accession [id number]).Please note: The reported value represents the total [...] thecavernous sinuses are normal. Normal foramen ovale, carry in worker space, andright-sided soft tissues generally. Orbit Soft [...] the lower lip as on axial 16; dentalartifact precludes accurate comparison with last CT [...] Total DLP (Dose-Length Product): 1397.74 mGy.cm (accession [id number]),1397.74 mGy.cm (accession [id number]), 1397.74 mGy.cm (accession [id number]).Please note: The reported value represents the total [...] no aneurysm of either internal carotid artery. Beaver of Pardo and Major Peripheral Branches: There is no significantstenosis or occlusion. There is no aneurysm. Right PAINT MIXER. Other Findings: Normal right cavernous sinus. IMPRESSION: Neck CTA: No significant stenosis is present within the cervical carotid andvertebral systems. Head CTA: No significant intracranial arterial stenosis or aneurysm is present. CRITICAL RESULT: No. COMMUNICATION: Per this written report. Drafted by Dg Ornelas on 01/28/2025 11:34 AM Final report signed by Dg Ornelas on 01/28/2025 12:06 PM Spike Wilkerson MD IMG CT PROCEDURES Final Result * CT Face w IV Contrast (01/28/2025 [...] Total DLP (Dose-Length Product): 1397.74 mGy.cm (accession [id number]), 1397.74 mGy.cm (accession [id number]), 1397.74 mGy.cm (accession [id number]). Please note: The reported value represents the [...] no aneurysm of either internal carotid artery. Beaver of Pardo and Major Peripheral Branches: There is no significant stenosis or occlusion. There is no aneurysm. Right PAINT MIXER. Other Findings: Normal right cavernous sinus. IMPRESSION: [...] Total DLP (Dose-Length Product): 1397.74 mGy.cm (accession [id number]), 1397.74 mGy.cm (accession [id number]), 1397.74 mGy.cm (accession [id number]). Please note: The reported value represents the [...] cavernous sinuses are normal. Normal foramen ovale, carry in worker space, and right-sided soft tissues generally. Orbit [...] Total DLP (Dose-Length Product): 1397.74 mGy.cm (accession [id number]),1397.74 mGy.cm (accession [id number]), 1397.74 mGy.cm (accession [id number]).Please note: The reported value represents the total [...] thecavernous sinuses are normal. Normal foramen ovale, carry in worker space, andright-sided soft tissues generally. Orbit Soft [...] Total DLP (Dose-Length Product): 1397.74 mGy.cm (accession [id number]),1397.74 mGy.cm (accession [id number]), 1397.74 mGy.cm (accession [id number]).Please note: The reported value represents the total [...] no aneurysm of either internal carotid artery. Beaver of Pardo and Major Peripheral Branches: There is no significantstenosis or occlusion. There is no aneurysm. Right PAINT MIXER. Other Findings: Normal right cavernous sinus. IMPRESSION: Neck CTA: No significant stenosis is present within the cervical carotid andvertebral systems. Head CTA: No significant intracranial arterial stenosis or aneurysm is present. CRITICAL RESULT: No. COMMUNICATION: Per this written report. Drafted by Dg Ornelas on 01/28/2025 11:34 AM Final report signed by Dg Ornelas on 01/28/2025 12:06 PM Spike Wilkerson MD IM CT PROCEDURES Final Result * CT Angio Head (01/28/2025 10:54 AM EDT) Anatomical Region Laterality Modality Beaver of Pardo Computed Tomogr aphy Impressions 01/28/2025 [...] Total DLP (Dose-Length Product): 1397.74 mGy.cm (accession [id number]), 1397.74 mGy.cm (accession [id number]), 1397.74 mGy.cm (accession [id number]). Please note: The reported value represents the [...] no aneurysm of either internal carotid artery. Beaver of Pardo and Major Peripheral Branches: There is no significant stenosis or occlusion. There is no aneurysm. Right PAINT MIXER. Other Findings: Normal right cavernous sinus. IMPRESSION: [...] Total DLP (Dose-Length Product): 1397.74 mGy.cm (accession [id number]), 1397.74 mGy.cm (accession [id number]), 1397.74 mGy.cm (accession [id number]). Please note: The reported value represents the [...] cavernous sinuses are normal. Normal foramen ovale, carry in worker space, and right-sided soft tissues generally. Orbit [...] Total DLP (Dose-Length Product): 1397.74 mGy.cm (accession [id number]),1397.74 mGy.cm (accession [id number]), 1397.74 mGy.cm (accession [id number]).Please note: The reported value represents the total [...] thecavernous sinuses are normal. Normal foramen ovale, carry in worker space, andright-sided soft tissues generally. Orbit Soft [...] Total DLP (Dose-Length Product): 1397.74 mGy.cm (accession [id number]),1397.74 mGy.cm (accession [id number]), 1397.74 mGy.cm (accession [id number]).Please note: The reported value represents the total [...] no aneurysm of either internal carotid artery. Beaver of Pardo and Major Peripheral Branches: There is no significantstenosis or occlusion. There is no aneurysm. Right PAINT MIXER. Other Findings: Normal right cavernous sinus. IMPRESSION: Neck CTA: No significant stenosis is present within the cervical carotid andvertebral systems. Head CTA: No significant intracranial arterial stenosis or aneurysm is present. CRITICAL RESULT: No. COMMUNICATION: Per this written report. Drafted by Dg Ornelas on 01/28/2025 11:34 AM Final report signed by Dg Ornelas on 01/28/2025 12:06 PM Spike Wilkerson MD IM CT PROCEDURES Final Result * ED HIV 1/2 Antibody/Antigen Screen w/Reflex to HIV 1/2 Differentiation (01/28/2025 10:10 AM EDT) HIV 1 & 2 Antibody/Antigen Screen Non Reactive Non Reactive 01/28/2025 11:16 AM EDT [facility] Comment:Screening for HIV 1 & 2 antibodies, and P24 antigen is NONREACTIVE. No confirmatory testing is required. Blood Venous blood specimen / Unknown Venipuncture / Unknown 01/28/2025 10:10 AM EDT 01/28/2025 10:33 AM EDT us Spike Wilkerson MD LAB BLOOD ORDERABLES Fin al Result Performing Organization Address City/[facility]/ZIP Co de Phone Number [facility] [address] [place] [address] * Hepatitis C Antibody - ED (01/28/2025 10:10 AM EDT) Hepatitis C Antibody Negative Negative 01/28/2025 11:16 AM EDT [facility] Blood Venous blood specimen / Unknown Venipuncture / Unknown 01/28/2025 10:10 AM EDT 01/28/2025 10:34 AM EDT us Spike Wilkerson MD LAB BLOOD ORDERABLES Fin al Result Performing Organization Address [facility] [place] [address] * APTT (01/28/2025 10:10 AM EDT) aPTT 25 25 - 35 sec 01/28/2025 10:29 AM EDT [facility] Blood Venous blood specimen / Unknown Venipuncture / Unknown 01/28/2025 10:10 AM EDT 01/28/2025 10:16 AM EDT us Spike Wilkerson MD LAB BLOOD ORDERABLES Fin al Result Performing Organization Address City/[facility] Co de Phone Number [facility] [address] [place] [address] * PT-INR (01/28/2025 10:10 AM EDT) Prothrombin Time 13.1 12.0 - 14.3 sec 01/28/2025 10:29 AM EDT [facility] INR 1.0 0.9 - 1.1 01/28/2025 10:29 AM EDT [facility] Blood Venous blood specimen / Unknown Venipuncture / Unknown 01/28/2025 10:10 AM EDT 01/28/2025 10:16 AM EDT Narrative [facility] - 01/28/2025 10:29 AM EDT OPTIMAL INR RANGES FOR PATIENT ON ORAL ANTICOAGULANT THERAPY Prevention of venous thromboembolism INR 2.0 to 3.0 In patients with heart disease: Atrial fibrillation INR 2.0 to 3.0 Valvular heart disease INR 2.0 to 3.0 Tissue heart valves INR 2.0 to 3.0 Mechanical prosthetic valves INR 2.5 to 3.5 Prevention of recurrent PR INR 2.5 to 3.5 us Spike Wilkerson MD LAB BLOOD ORDERABLES Fin al Result [facility] [address] [place] [address] * (ABNORMAL) CBC w/diff (01/28/2025 10:10 AM EDT) WBC Count 10.34(H) 3.70 - 10.30 10*3/uL LAB HEMATOLOGY METHOD 01/28/2025 10:18 AM EDT [facility] RBC Count 4.29(L) 4.60 - 6.10 10*6/uL LAB HEMATOLOGY METHOD 01/28/2025 10:18 AM EDT [facility] HGB 13.2(L) 13.7 - 17.5 g/dL LAB HEMATOLOGY METHOD 01/28/2025 10:18 AM EDT [facility] HCT 39.6(L) 40.0 - 51.0 % LAB HEMATOLOGY METHOD 01/28/2025 10:18 AM EDT [facility] Platelet Count 163 155 - 369 10*3/uL LAB HEMATOLOGY METHOD 01/28/2025 10:18 AM EDT [facility] MCV 92 79 - 98 fL LAB HEMATOLOGY METHOD 01/28/2025 10:18 AM EDT [facility] MCH 30.8 26.0 - 32.0 pg LAB HEMATOLOGY METHOD 01/28/2025 10:18 AM EDT [facility] MCHC 33.3 30.7 - 35.5 g/dL LAB HEMATOLOGY METHOD 01/28/2025 10:18 AM EDT [facility] RDW 13.9 11.5 - 14.5 % LAB HEMATOLOGY METHOD 01/28/2025 10:18 AM EDT [facility] MPV 8.9 8.8 - 12.5 fL LAB HEMATOLOGY METHOD 01/28/2025 10:18 AM EDT [facility] nRBC 0.0 <=0.0 per 100 WBCs LAB HEMATOLOGY METHOD 01/28/2025 10:18 AM EDT [facility] Differential Type Automated LAB HEMATOLOGY METHOD 01/28/2025 10:18 AM EDT [facility] Neutrophils % 75 % LAB HEMATOLOGY METHOD 01/28/2025 10:18 AM EDT [facility] Lymphocytes % 17 % LAB HEMATOLOGY METHOD 01/28/2025 10:18 AM EDT [facility] Monocytes % 7 % LAB HEMATOLOGY METHOD 01/28/2025 10:18 AM EDT [facility] Eosinophils % 0 % LAB HEMATOLOGY METHOD 01/28/2025 10:18 AM EDT [facility] Basophils % 0 % LAB HEMATOLOGY METHOD 01/28/2025 10:18 AM EDT [facility] Immature Granulocytes % 1 % LAB HEMATOLOGY METHOD 01/28/2025 10:18 AM EDT [facility] Neutrophils Absolute 7.76(H) 1.60 - 6.10 10*3/uL LAB HEMATOLOGY METHOD 01/28/2025 10:18 AM EDT [facility] Lymphocytes Absolute 1.78 1.20 - 3.90 10*3/uL LAB HEMATOLOGY METHOD 01/28/2025 10:18 AM EDT [facility] Monocytes Absolute 0.69 0.30 - 0.90 10*3/uL LAB HEMATOLOGY METHOD 01/28/2025 10:18 AM EDT [facility] Eosinophils Absolute 0.02 0.00 - 0.50 10*3/uL LAB HEMATOLOGY METHOD 01/28/2025 10:18 AM EDT [facility] Basophils Absolute 0.02 0.00 - 0.10 10*3/uL LAB HEMATOLOGY METHOD 01/28/2025 10:18 AM EDT [facility] Immature Granulocytes Absolute 0.07(H) 0.00 - 0.06 10*3/uL LAB HEMATOLOGY METHOD 01/28/2025 10:18 AM EDT [facility] Blood Venous blood specimen / Unknown Venipuncture / Unknown 01/28/2025 10:10 AM EDT 01/28/2025 10:16 AM EDT Narrative [facility] - 01/28/2025 10:18 AM EDT Therapeutic decision making should be based on absolute values, rather than percentages. us Spike Wilkerson MD LAB BLOOD ORDERABLES Fin al Result [facility] [address] [place] [address] * (ABNORMAL) CMP (01/28/2025 10:10 AM EDT) Glucose, Plasma 95 74 - 99 mg/dL 01/28/2025 10:34 AM EDT [facility] BUN, Plasma 19 8 - 23 mg/dL 01/28/2025 10:34 AM EDT [facility] Creatinine, Plasma 1.06 0.70 - 1.20 mg/dL 01/28/2025 10:34 AM EDT [facility] BUN/Creatinine Ratio 18 01/28/2025 10:34 AM EDT [facility] Sodium, Plasma 135(L) 136 - 145 mmol/L 01/28/2025 10:34 AM EDT [facility] Potassium, Plasma 4.6 3.6 - 4.9 mmol/L 01/28/2025 10:34 AM EDT [facility] Chloride, Plasma 99 97 - 107 mmol/L 01/28/2025 10:34 AM EDT [facility] CO2, Plasma 26 22 - 29 mmol/L 01/28/2025 10:34 AM EDT [facility] Anion Gap 10 6 - 16 mmol/L 01/28/2025 10:34 AM EDT [facility] Total Calcium, Plasma 8.9 8.9 - 10.2 mg/dL 01/28/2025 10:34 AM EDT [facility] Total Protein 6.1(L) 6.3 - 7.9 g/dL 01/28/2025 10:34 AM EDT [facility] Albumin, Plasma 3.8 3.5 - 5.2 g/dL 01/28/2025 10:34 AM EDT [facility] AST, Plasma 12 10 - 50 U/L 01/28/2025 10:34 AM EDT [facility] ALT, Plasma 9(L) 10 - 50 U/L 01/28/2025 10:34 AM EDT [facility] Alkaline Phosphatase, Plasma 87 40 - 115 U/L 01/28/2025 10:34 AM EDT [facility] Total Bilirubin, Plasma 0.5 0.2 - 1.1 mg/dL 01/28/2025 10:34 AM EDT [facility] eGFRcr 67.1 mL/min/1.7 3m*2 01/28/2025 10:34 AM EDT [facility] Comment:Reported eGFRcr in m L/min/1.73m2 is based the CKD-EPI 2020 equation that does not use a race coefficient. Blood Venous blood specimen / Unknown Venipuncture / Unknown 01/28/2025 10:10 AM EDT 01/28/2025 10:16 AM EDT us Spike Wilkerson MD LAB BLOOD ORDERABLES Fin al Result [facility] [address] [place] [address] * PET/CT FDG Whole Body (12/20/2024 12:29 [...] Positioning: Arms by sides. PET/CT scanner: Siemens Gate2Playgraph 40 mCT. PET/CT acquisition: [id number], plus magnification (zoomed) neck. Standardized uptake value (SUV): Corrected for body weight only. CT: Low-dose, [id number], without intravenous contrast. TOTAL DLP (Dose Length [...] scanner: Siemens Biograph 40 mCT. PET/CT acquisition: [id number], plus magnification (zoomed) neck. Standardized uptake value (SUV): Corrected for body weight only. CT: Low-dose, [id number], without intravenous contrast. TOTAL DLP (Dose Length [...] on 12/20/2024 5:09 PM Huang Gonzalez MD [facility] [place] PROCEDURES Final Result from Last 3 Months [place] [address] ANTHEM Care Teams Lawyer Criminal Relationship Specialty Start Date End Date Coleman Fitzgerald MD [address] [place] [address] PCP - General 01/18/23 Herminio Tapia PA [id number] [place] [address] Physician Lens Engraver Otolaryngology 12/16/22 Santiago Morrell MD [address] [id number] Referring Physician 12/16/22
--- OUTSIDE RECORDS SUMMARY | 2025-02-03 11:03 | XMS_ITS | Encounter Summary ---
Author Organization Healthcare Address [address] [place] [address] Care Team Providers Care Nurse Sexual Assault Name Role Phone Herminio Tapia Unavailable [phone] Santiago Morrell MD Unavailable [phone] Coleman Fitzgerald MD Primary Care Provider [phone] Encounter Details Date Type Department Care Team (Latest Contact Info) Description 01/28/2025 Travel Social History Tobacco Use Types Packs/Day Years Used Date Smoking Tobacco: Former Cigarettes 1 30 950 - 1979 Smokeless Tobacco: Never Alcohol Use Standard Drinks/Week Comments Not Currently 0 (1 standard drink = 0.6 oz pur e alcohol) Sex and Gender Information Value Date Recorded Sex Assigned at Not on file Legal Sex Male 3:41 PM EDT Gender Identity Not on file Sexual Orientation Not on file documented as of this encounter Functional Status * Calculated C-SSRS [...] Landry RN documented as of this encounter Plan of Treatment Upcoming Encounters Date Type Department Care Team (Late st Contact Info) Description 09/17/2025 1:10 PM EDT Consult [place] [facility] [address] [place] [address] Reyna Padilla PA [address] [place] [address] documented as of this encounter Visit Diagnoses Not on filedocumented in this encounter Additional Health Concerns Assessment Noted Time A fall risk assessment has been complete d for the patient 12/20/2024 2:47 PM EDT A Body Mass Index follow-up plan has been documented for the patient 12/21/2024 6:20 PM EDT documented as of this encounter Care Teams Nurse Sexual Assault Relationship Specialty Start Date End Date Coleman Fitzgerald MD [address] [place] [address] PCP - General 01/18/23 Herminio Tapia PA [address] [place] [address] Physician Mold Dumper Otolaryngology 12/16/22 Santiago Morrell MD [address] [facility] [place], [place] [id number] Referring Physician 12/16/22 documented as of this encounter
--- OUTSIDE RECORDS SUMMARY | 2025-02-03 11:03 | XMS_ITS | Encounter Summary ---
Author Organization [employer] ([place], [place], [place], [place]) Address [address] [place] [address] Care Team Providers Care Telephone Sterilizer Name Role Phone Coleman Fitzgerald MD Primary Care Provider [phone] Thalia Brito PA-C Unavailable [phone] Eduard Harris MD Unavailable Reason for Visit * Reason Comments Medication Refill Encounter Details Date Type Department Care Team (Late st Contact Info) Description 11/13/2022 Refill [facility] Cardiology [address] [place] [phone] Eduard Harris MD [address] [place] [address] [address] [place] [address] Ventricular tachycardia (HCC) Social History Tobacco Use Types Packs/Day Years Used Date Smoking Tobacco: Former Smokeless Tobacco: Never Sex and Gender Information Value Date Recorded Sex Assigned at Not on file Legal Sex Male 5:30 PM CDT Gender Identity Not on file Sexual Orientation Not on file documented as of this encounter Plan of Treatment Upcoming Encounters Date Type Department Care Team (Late st Contact Info) Description 03/11/2025 1:30 PM EDT Office Visit [facility] Cardiology [address] [place] [phone] Corina Gómez MD [address] [place] [phone] documented as of this encounter Visit Diagnoses Diagnosis Ventricular tachycardia (HCC) Paroxysmal ventricular tachycardia documented in this encounter Care Teams Telephone Sterilizer Relationship Specialty Start Date End Date Coleman Fitzgerald MD [address] [place] [address] PCP - General Family Medicine 05/28/22 Thalia Brito, PA-C [address] [place] [address] [place] [address] Cardiology 01/07/23 [place] [address] [place] [address] [address] Cardiology 01/07/23 documented as of this encounter
--- OUTSIDE RECORDS SUMMARY | 2025-02-03 11:03 | XMS_ITS | Encounter Summary ---
Author Organization Healthcare Address [address] [place] [address] Care Team Providers Care Senior Java J2Ee Developer Name Role Phone Pcp, No Primary Care Provider Unavaillin e Nuria Muniz DMD Unavailable [phone] Domingo Law Unavailable Unavailable Herminio Tapia PA Unavailable [phone] Santiago Morrell MD Unavailable [phone] Coleman Fitzgerald MD Primary Care Provider [phone] Encounter Details Date Type Department Care Team (Late st Contact Info) Description 11/26/2022 Community [facility] [address] [place] [address] Erich Lopez, BOX COVERING MACHINE OPERATOR [address] [place] [address] Mucocele of lower lip (Primary Dx) Social History Tobacco Use Types Packs/Day Years Used Date Smoking Tobacco: Former Cigarettes Q uit: 1980 Smokeless Tobacco: Never Alcohol Use Standard [...] Info) Description 09/17/2025 1:10 PM EDT Consult [place] [facility] [address] [place] [address] Reyna Padilla PA [address] [place] [address] documented as of this encounter Visit Diagnoses Diagnosis Mucocele of lower lip- Primary Other and unspecified diseases of the oral soft tissues documented in this encounter Care Teams Senior Java J2Ee Developer Relationship Specialty Start Date End Date Pcp, No [address] [place] [address] PCP - General Family Medicine 02/02/22 01/17/23 Coleman Fitzgerald MD [address] [place] [address] PCP - General 01/18/23 Nuria Muniz DMD [address] [facility] [address] [place] [address] Dentist Dental Hose Coupling Joiner 02/04/22 Domingo [employer] Dental Student Dental Hose Coupling Joiner 02/04/22 09/13/23 Herminio Tapia PA [address] [place] [address] Physician Risk Management Professional Otolaryngology 12/16/22 Santiago Morrell MD [address] [facility], [address] [place] [address] Referring Physician 12/16/22 documented as of this encounter
--- OUTSIDE RECORDS SUMMARY | 2025-02-03 11:03 | XMS_ITS | Encounter Summary ---
Author Organization Healthcare Address [address] [place], [place] [id number] Care Team Providers Care Drill Runner Helper Name Role Phone Herminio Tapia Unavailable [phone] Santiago Morrell MD Unavailable [phone] Coleman Fitzgerald MD Primary Care Provider Reason for Visit * Reason Comments Med Change Request Encounter Details Date Type Department Care Team (Late st Contact Info) Description 01/28/2025 Refill [facility] [address] [place] [address]; Room [address] [place] [address] Adrian Gibson MD [address] [place] [address] Social History Tobacco Use Types Packs/Day Years [...] Info) Description 09/17/2025 1:10 PM EDT Consult [place] [facility] [address] [place] [address] Reyna Padilla PA [address] [place] [address] documented as of this encounter Visit Diagnoses Not on filedocumented in this encounter Additional Health Concerns Assessment Noted Time A fall risk assessment has been complete d for the patient 12/20/2024 2:47 PM EDT A Body Mass Index follow-up plan has been documented for the patient 12/21/2024 6:20 PM EDT documented as of this encounter Care Teams Drill Runner Helper Relationship Specialty Start Date End Date Coleman Fitzgerald MD [address] [place] [address] PCP - General 01/18/23 Herminio Tapia PA [address] [place] [address] Physician Poleyard Supervisor Otolaryngology 12/16/22 Santiago Morrell MD [address] [facility], [address] [place], [place] [id number] Referring Physician 12/16/22 documented as of this encounter
--- OUTSIDE RECORDS SUMMARY | 2025-02-03 11:03 | XMS_ITS | Clinical Summary ---
[facility] Organization [facility] Address [address] [place] [address] Care Team Providers Care Fuse Spooler Name Role Phone Coleman Fitzgeradl MD Primary Care Provider [phone] Allergies Active Allergy Reactions Criticality Noted Date Comments Propoxyphene Itching 03/30/2018 Penicillins Hives 04/03/2023 Sulfa Antibiotics Hives,Itching 03/30/2018 Medications atorvastatin (LIPITOR) 40 MG tablet Take 40 mg by mouth Daily. Active aspirin 81 MG EC tablet Take 81 mg by mouth Daily. Active folic acid (FOLVITE) 1 MG tablet Take 1 mg by mouth Daily. Active nitroglycerin (NITROSTAT) 0.[address] 0.4 mg under the tongue Every 5 (Five) Minutes As Needed for Chest Pain. Take no more than 3 doses in 15 minutes. Active montelukast (SINGULAIR) 10 MG tablet Take 10 mg by mouth Every Night. Active albuterol (PROVENTIL HFA) 108 (90 Base) MCG/ACT inhaler Inhale 2 puffs Every 4 (Four) Hours As Needed for Wheezing. Active amiodarone (PACERONE) 200 MG tablet Take 200 mg by mouth Daily. Active clopidogrel (PLAVIX) 75 MG tablet Take 1 tablet by mouth Daily. Active fluticasone (FLONASE) 50 MCG/ACT nasal spray 2 sprays into the nostril(s) as directed by provider Daily. Active tamsulosin (FLOMAX) 0.4 MG capsule 24 hr capsule Take 1 capsule by mouth Every Night. Active naloxone (NARCAN) 4 MG/0.1ML nasal spray Call 911. Don't prime. [place] in 1 nostril for overdose. Repeat in 2-3 minutes in other nostril if no or minimal breathing/res ponsiveness. 2 each 04/09/2023 Active oxybutynin XL (DITROPAN-XL) 10 MG 24 hr tablet Take 1 tablet by mouth Daily. Active gabapentin (NEURONTIN) 100 MG capsule Take 1 capsule by mouth 3 (Three) Times a Day. Active zolpidem (Ambien) 10 MG tablet Take 1 tablet by mouth At Night As Needed for Sleep. Active cefdinir (OMNICEF) 300 MG capsule Take 1 capsule by mouth 2 (Two) Times a Day. 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 04/03/2023 Presence of cardiac pacemaker 04/03/2023 Immunizations Immunization Administration Dates Next Due Tdap 07/28/2019 Family History Medical History Relation Name Comments No Known Problems Father No Known Problems Mother Relation Name Status Comments Father Mother Social History Tobacco Use Types Packs/Day Years Used Date Smoking Tobacco: Former Smokeless Tobacco: Never Tobacco Cessation:Counseling Given: No Comments:quit over 35 years ago Alcohol Use Standard Drinks/Week Comments No 0 (1 standard drink = 0.6 oz pur e alcohol) [facility] Utilities Answer Date Recorded In the past 12 months has [employer], gas, oil, or water Hotelements threatened to shut off services in your home? No 03/23/2024 AUDIT-C Answer Date Recorded Q1: How often do you have a drink containing alcohol? Never 03/22/2024 Q2: How many drinks containi ng alcohol do you have on a typical day when you are drinking? Patient does not drink Q3: How often do you have si x or more drinks on one occasion? Never 03/22/2024 Overall Financial Resource Strain (CARDIA) Answe r Date Recorded How hard is it for you to pa y for the very basics like food, housing, medical care, and heating? Not hard at all 03/26/2024 [facility] [place] - Occupational Stress Questionnaire Answer Date Recorded Do you feel stress - tense, restless, nervous, or anxious, or unable to sleep at night because your mind is troubled all the time - these days? Not at all 03/26/2024 Exercise Vital Sign Answer Date Recorde d On average, how many days pe r week do you engage in moderate to strenuous exercise (like a brisk walk)? 3 days 03/23/2024 On average, how many minutes do you engage in exercise at this level? 40 min 03/23/2024 Hunger Vital Sign Answer Date Recorded Within the past 12 months, y ou worried that your food would run out before you got the money to buy more. Never true 03/23/20 24 Within the past 12 months, t he food you bought just didn't last and you didn't have money to get more. Never true 03/23/2024 PRAPARE - Transportation Answer Date Re corded In the past 12 months, has l ack of transportation kept you from medical appointments or from getting medications? No 05/2023 In the past 12 months, has l ack of transportation kept you from meetings, work, or from getting things needed for daily living? No 03/23/2024 Abuse Screen Answer Date Recorded Feels Unsafe at Home or Work/School no 03/22/2024 Feels Threatened by Someone no 02/22 Does Anyone Try to Keep You From Having Contact with Others or Doing Things Outside Your Home? no 03/22/2024 Physical Signs of Abuse Present no 03/22/2024 Housing Stability Answer Date Recorded Current Living Arrangements home 05/2023 Potentially Unsafe Housing Conditions none 03/23/2024 Family and Community Support Answer Juan F e Recorded If for any reason you need h elp with day-to-day activities such as bathing, preparing meals, shopping, managing finances, etc., do you get the help you need? I don't need any help 03/26/2024 How often do you feel lonely or isolated from those around you? Never 03/26/2024 Employment Answer Date Recorded Do you want help finding or keeping work or a job? I do not need or want help 03/23/2024 Disabilities Answer Date Recorded Difficulty Concentrating, Remembering or Making Decisions no 03/22/2024 Difficulty Managing Errands Independently no 03/22/2024 Education Answer Date Recorded Do you want help with school or training? For example, starting or completing job training or getting a high school diploma, GED or equivalent No 03/23/2024 Preferred Language Kinyarwanda 03/23/2024 PHQ-2 Answer Date Recorded Patient Health Questionnaire-2 Score 0 03/26/2024 Sex and Gender Information Value Date Recorded Sex Assigned at Not on file Legal Sex Male 10:23 AM EDT Gender Identity Not on file Sexual Orientation Not on file Last Filed Vital Signs Vital Sign Reading Time Taken Comments Blood Pressure 116/65 03/26/2024 2:00 PM EST Pulse 60 03/26/2024 2:00 PM EST Temperature 36.6 C (97.8 F) 03/26/2024 12:00 PM EST Respiratory Rate 20 03/26/2024 2:00 PM EST Oxygen Saturation 98% 03/26/2024 2:00 PM EST Inhaled Oxygen Concentration - - Weight 91 kg (200 lb 9.9 oz) 03/23/2024 4:00 AM EDT Height 188 cm (6' 2.02 ) 03/22/2024 6:19 PM EDT Body Mass Index 25.74 03/22/2024 6:19 PM EDT Plan of Treatment Health Maintenance Due Date Last Done Comments Pneumococcal Vaccine 50+ (1 of 2 - PCV) 07/31/1954 ZOSTER VACCINE (1 of 2) 07/31/1985 RSV Vaccine - Adults (1 - 1- dose 75+ series) 07/31/2010 ANNUAL WELLNESS VISIT 04/24/2018 PT PLAN OF CARE 05/23/2019 02/22/2019, 08/22, 04/05/2018 COVID-19 Vaccine (2023-2 5 season) 2025 02/21/2024, 03/24/2023, 03/02/2022, Additional history exists INFLUENZA VACCINE 02/20/2025 02/10/2024, , 02/16/2022 TDAP/TD VACCINES (2 - Td or Tdap) 07/27/2029 020 Medical Devices Implanted Type Area International Travel Consultant Device Identifier Shelf Expiration Date Model / Serial / Lot Icd ICD Clipapplr M/ Endo Ligaclip Rot 10mm /Rafiq - [id number] Implanted:Qty : 1 on 04/07/2023 by Nasim Samayoa MD at [facility] Implant N/A: Abdomen [employer] [id number] 02/19/2026 [id number] / / [id number] Insurance MEDICARE A & B [facility] Advance Directives * CPR (Attempt to Resuscitate) (Latest Code Status on File) Date Activated Date Inactivated Comments 03/23/2024 12:05 AM 03/26/2024 5:52 PM Question Answer Comments Code Status (Patient has no pulse and is not breathing): CPR (Attempt to Resuscitate) Medical Interventions (Patie nt has pulse or is breathing): Full Support Level Of Support Discussed With: Patient * CPR (Attempt to Resuscitate) Date Activated Date Inactivated Comments 04/03/2023 8:43 PM 04/09/2023 6:17 PM Question Answer Comments Code Status (Patient has no pulse and is not breathing): CPR (Attempt to Resuscitate) Medical Interventions (Patie nt has pulse or is breathing): Full Support Care Teams Fuse Spooler Relationship Specialty Start Date End Date Coleman Fitzgerald MD [address] [place] [address] PCP - General 01/15/15
--- OUTSIDE RECORDS SUMMARY | 2025-02-03 11:03 | XMS_ITS | Encounter Summary ---
Author Organization [employer] ([place], [place], [place], [place]) Address [address] [place] [address] Care Team Providers Care Golf Shoe Spike Assembler Name Role Phone Coleman Fitzgerald MD Primary Care Provider [phone] Thalia Brito PA-C Unavailable [phone] Eduard Harris MD Unavailable Reason for Visit * Reason Comments Medication Refill Encounter Details Date Type Department Care Team (Late st Contact Info) Description 01/17/2023 Refill [facility] Cardiology [address] [place] [address] [place] [address] [place] [address] [address] [place] [address] Social History Tobacco Use Types Packs/Day Years Used Date Smoking Tobacco: Former Smokeless Tobacco: Never Sex and Gender Information Value Date Recorded Sex Assigned at Not on file Legal Sex Male 5:30 PM CDT Gender Identity Not on file Sexual Orientation Not on file documented as of this encounter Miscellaneous Notes * Telephone Encounter - Fatou Chavez MA - 01/17/2023 10:51 PM EDT jennifer 07/26/22 Alisha documented in this encounter Plan of Treatment Upcoming Encounters Date Type Department Care Team (Late st Contact Info) Description 03/11/2025 1:30 PM EDT Office Visit [facility] Cardiology [address] [phone] Corina Gómez MD [address] [place] [address] documented as of this encounter Visit Diagnoses Not on filedocumented in this encounter Care Teams Golf Shoe Spike Assembler Relationship Specialty Start Date End Date Coleman Fitzgerald MD [address] [place] [address] [place] [address] PCP - General Family Medicine 05/28/22 Thalia Brito, PA-C [address] [facility] [address] [place] [address] Cardiology 01/07/23 [place] [address] [place] [address] [address] [place] [address] Cardiology 01/07/23 documented as of this encounter
--- OUTSIDE RECORDS SUMMARY | 2025-02-03 11:03 | XMS_ITS | Encounter Summary ---
Author Organization [employer] ([place], [place], [place], [place]) Address [address] [place] [address] Care Team Providers Care Recreation Therapy Aide Name Role Phone Coleman Fitzgerald MD Primary Care Provider [phone] Thalia Brito PA-C Unavailable [phone] Eduard Harris MD Unavailable Encounter Details Date Type Department Care Team (Late st Contact Info) Description 01/16/2019 Transcribed Document [facility] Pulm & Critical Care Medicine [address] [facility] [address] [place] [address] Tien Tapia MD [address] [facility] [address] [place], [place] [id number] Social History Tobacco Use Types Packs/Day Years Used Date Smoking Tobacco: Never Assessed Sex and Gender Information Value Date Recorded Sex Assigned at Not on file Legal Sex Male 5:30 PM CDT Gender Identity Not on file Sexual Orientation Not on file documented as of this encounter Miscellaneous Notes * Cerner Conversion Note - Tien Tapia MD - 01/16/2019 12:10 PM EDT DATE OF STUDY: 01/12/2019 REFERRING PHYSICIAN: Dr. Haas. PATIENT DATA: Gender: Male. Age: 83. Race: . Height: 75 inches. Weight: 212 pounds. Body mass index: 26.42. TEST COMMENTS: Spirometry data is acceptable and reproducible according to ATS criteria. Flow volume loops are acceptable with skewing of expiratory limb, hinting of airway obstruction. Exhalation time more than 6 seconds. SPIROMETRY: FVC is 3.75 L, 85% predicted. FEV1 of 2.09 L, 64% of predicted. FEV1/FVC percentage predicted is 56. SPIROMETRY POST BRONCHODILATOR THERAPY: There is no significant change. LUNG VOLUME VIA PLETHYSMOGRAPH: Total lung capacity 99% predicted, thoracic gas volume 95% predicted, RV 111% predicted. Diffusion lung capacity 105% predicted. IMPRESSION: 1. Moderate airway obstruction, GOLD criteria, chronic obstructive pulmonary disease stage 2 with no significant response to bronchodilator therapy. 2. Lung volume via plethysmograph were within normal limits. 3. Diffusion lung capacity was within normal limits. Tien Tapia M.D. Dict: 01/16/2019 11:10:56 Trans: 01/16/2019 17:55:32 CC1: Tien Tapia M.D. documented in this encounter Plan of Treatment Upcoming Encounters Date Type Department Care Team (Late st Contact Info) Description 03/11/2025 1:30 PM EDT Office Visit [facility] Cardiology [address] [place] [phone] Corina Gómez MD [address] [place] [phone] documented as of this encounter Visit Diagnoses Not on filedocumented in this encounter Care Teams Recreation Therapy Aide Relationship Specialty Start Date End Date Coleman Fitzgerald MD [address] [place] [address] [place] [address] PCP - General Family Medicine 05/28/22 Thalia Brito PA-C [address] [place] [address] [address] Cardiology 01/07/23 Eduard Harris MD [address] [place] [address] [address] Cardiology 01/07/23 documented as of this encounter
--- OUTSIDE RECORDS SUMMARY | 2025-02-03 11:03 | XMS_ITS | Encounter Summary ---
Author Organization Healthcare Address [address] [place] [address] Care Team Providers Care Engine Repairer Service Name Role Phone Pcp, No Primary Care Provider Unavailabl e Nuria Muniz DMD Unavailable [phone] Domingo Law Unavailable Unavailable Herminio Tapia PA Unavailable [phone] Santiago Morrell MD Unavailable [phone] Coleman Fitzgerald MD Primary Care Provider [phone] Encounter Details Date Type Department Care Team (Late Contact Info) Description 12/21/2022 Lab Requisition [facility] [address] [place] [id number] Huang Gonzalez MD [address] [place] [address] Mucocele of salivary gland Social History Tobacco Use Types Packs/Day Years [...] Encounters Date Type Department Care Team (Late Contact Info) Description 09/17/2025 1:10 PM EDT Consult [place] [facility] [address] [place] [address] Reyna Padilla PA [address] [place] [address] documented as of this encounter Procedures Procedure Name Priority Date/Time Associated Diagnosis Comments SURGICAL PATHOLOGY CONSULT Routine 12/21/2022 11:10 AM EDT Mucocele of salivary gland documented in this encounter Results * Surgical Pathology Consult (12/21/2022 11:10 AM EDT) Case Report Sugical Pathology Consult Case: [id number] Authorizing Provider: Huang Gonzalez MD Collected: 12/21/2022 1110 Ordering Location: [facility] Lab Received: 12/21/2022 1110 Pathologist: Candelario Willis DO Specimen: Mucosa, [id number] 3 9:17 AM EDT [facility] Final Diagnosis A. Oral cavity, lower lip, excision (OSC# [id number]; collected 12/10/22): - MALIGNANT MELANOMA, desmoplastic growth pattern - See comment 3 9:17 AM EDT [facility] at 0917 EDT Comment While a primary lesion is favored, the possibility that this represents a metastasis or in-transit metastasis cannot be entirely excluded. No intramucosal involvement is noted in the sampled material. If this is the primary lesion, it is at least a pT4a tumor, with a depth of invasion of at least 9 mm, 2 mitoses/mm2, neurotropism present, and positive peripheral margins. Correlation with clinical and radiographic findings is required. 3 9:17 AM EDT [facility] Synoptic Checklist MELANOMA OF THE SKIN: Biopsy MELANOMA OF THE SKIN: BIOPSY - All Specimens 8th Edition - Protocol posted: 08/12/2021 SPECIMEN Procedure: Not specified Specimen Laterality: Midline TUMOR Tumor Site: Skin of lip: lower lip Histologic Type: Desmoplastic melanoma Maximum Tumor (Breslow) Thickness (Millimeters): 9 mm Ulceration: Not identified Anatomic (Darion) Level: V (melanoma invades subcutis) Mitotic Rate: 2 mitoses per mm2 Microsatellite(s): Not identified Lymphovascular Invasion: Not identified Neurotropism: Present Tumor-Infiltrating Lymphocytes: Present, brisk Tumor Regression: Not identified MARGINS: Margin Status for Invasive Melanoma: Invasive melanoma present at margin Margin(s) Involved by Invasive Melanoma: Peripheral PATHOLOGIC STAGE CLASSIFICATION (pTNM, AJCC 8th Edition): pT Category: pT4a 3 9:17 AM EDT [facility] Clinical Information K11.6 - Mucocele of salivary gland [ICD-10-CM] 3 9:17 AM EDT [facility] Microscopic Description Immunohistochemical stains are provided for review with adequate controls. The tumor is positive for SOX-10 and S-100. MelanA, HMB-45, CK5/6, desmin, p40, pancytokeratin, WT1, and NSE are negative within tumor cells. 3 9:[address] [facility] Gross Description A. [id number] Received along with a corresponding pathology report from [facility] are 14 slide(s) labeled outside case: [id number] collected on 12/10/2022. 3 9:17 AM EDT [facility] Intradepartmental Consultation with Agreement Damaris Benitez MD 3 9:17 AM EDT [facility] Note: A resident was involved in the service. I attest I examined the relevant preparations for the specimens and confirmed the diagnosis or interpretation. 3 9:17 AM EDT [facility] Tissue (Mucosa) 12/21/2022 1 1:10 AM EDT 12/21/2022 11:10 AM EDT us Huang Gonzalez MD LAB PATHOLOGY ORDERABLES Final R esult [facility] [address] [place] [address] documented in this encounter Visit Diagnoses Diagnosis Mucocele of salivary gland documented in this encounter Additional Health Concerns Assessment Noted Time A fall risk assessment has been complete d for the patient 12/20/2022 9:28 AM EDT documented as of this encounter Care Teams Engine Repairer Service Relationship Specialty Start Date End Date Pcp, No [address] [place] [address] PCP - General Family Medicine 02/02/22 01/17/23 Coleman Fitzgerald MD [address] [place] [address] PCP - General 01/18/23 Nuria Muniz DMD [address] [place] [address] Dentist Dental Grain Mill Worker 02/04/22 Domingo Law [facility] Dental Student Dental Grain Mill Worker 02/04/22 09/13/23 Hermniio Tapia PA [address] [place] [address] Physician Sweeper Brush Maker Machine Otolaryngology 12/16/22 Santiago Morrell MD [address] [place] [address] Referring Physician 12/16/22 documented as of this encounter
[2025-02-03 11:30] VITALS: BP 112/67; PULSE 60; O2SAT 96
--- NOTE | 2025-02-03 11:53 | HMH.EDGENADL ---
Discharge Plan Disposition Patient Disposition: Home, Self-Care Prescriptions Prescriptions: New gabapentin 300 mg capsule 300 mg PO .qhs PRN (Reason: Neuropathic pain) 14 Days Qty: 14 0RF No Action azithromycin 250 MG tablet 250 mg PO DIRECTED Qty: 6 0RF Rx Instructions: Take two (2) tablets on day #1, then one (1) tablet day #2 thru #5 azithromycin 250 MG tablet 250 mg PO DIRECTED Qty: 6 0RF Rx Instructions: Take two (2) tablets on day #1, then one (1) tablet day #2 thru #5 fluticasone propionate 120 SPR/BOT bottle 1 spr NS DAILY 14 Days Qty: 9.9 0RF benzonatate 100 MG capsule 100 mg PO BID PRN (Reason: Cough) 7 Days Qty: 14 0RF Referrals Follow up/Referrals: Blair Esteban III, MD [Primary Care Provider, Medical] - See instructions Activity Restrictions/Add. Instructions Additional Instructions/Restrictions: Your contact information has been given to one of our executive's who will work on trying to get you into Dr. Lora's clinic soon. Additionally we called [facility] and they contacted the neurosurgical team and they should be contacting you in the next few days to be evaluated at their clinic soon. I cannot guarantee an exact timeframe of that. In the meantime continue to take your oxcarbazepine and your gabapentin are prescribed to you today. Likely will not completely alleviate your symptoms but may make it tolerable. It is possible you will need a neurosurgical intervention such as gamma knife therapy etc. which is why it is imperative that you follow-up with neurosurgery. Clinical Impressions Clinical Impression: Right trigeminal neuralgia Print Language Print Language: Kinyarwanda Discharge ED Provider: William Santos General Adult HPI General Chief complaint: PAIN Stated complaint: pain in right quaker Time Seen by Provider: 02/03/25 11:21 Mode of Arrival: Ambulatory Source of Information: Patient Description of Symptoms (Recalled from ER Triage Doc. by RN): patient states he had teeth pulled back in october and every since he has had right sided facial numbness with an electrical shock in his right quaker. he was seen at on tuesday and prescribed oxcarazepine took last dose at 0830 History of Present Illness HPI narrative: Patient is an 89-year-old male presents today with pain associated with a diagnosis of trigeminal neuralgia. He was recently in [facility] about a week after he had some teeth removed for dentures and he started having pain severely on the right side of his face in the V1 2 and [address] scans which were unremarkable ultimately was diagnosed with trigeminal neuralgia and started on oxcarbazepine which she has had no improvement with. Still is having intermittent and severe pain that severely affecting his life. He is attempted to get in with [facility] neurology but has no appointment until August of next year and also has attempted get in with our neurologist here at [place] Dr. Lora and cannot get him until April of this year. At the moment he is without symptoms. Related Data Previous Rx's ?Medication ?Instructions ?Recorded azithromycin 250 mg tablet 250 mg PO DIRECTED #6 tabs 04/04/21 azithromycin 250 mg tablet 250 mg PO DIRECTED #6 tabs 04/04/21 benzonatate 100 mg capsule 100 mg PO BID PRN Cough 7 days #14 04/04/21 caps fluticasone propionate 50 1 spr NS DAILY 14 days #9.9 mL 04/04/21 mcg/actuation nasal spray,suspension gabapentin 300 mg capsule 300 mg PO .qhs PRN Neuropathic 02/03/25 pain 14 days #14 caps Allergies Allergy/AdvReac Type Severity Reaction Status Date / Time acetaminophen (From Allergy Intermediate I-ITCHING Verified 04/04/21 11:15 DARVOCET-N) propoxyphene (From Allergy Intermediate I-ITCHING Verified 04/04/21 11:15 DARVOCET-N) Sulfa (Sulfonamide Allergy Intermediate I-ITCHING Verified 04/04/21 11:15 Antibiotics) (SULFA (SULFONAMIDE ANTIBIOTICS)) Penicillins Allergy Verified 04/04/21 11:15 [facility] Disclaimer: The information contained in this section may have been updated after the patient was seen, as this information can be updated by other users. Social History Smoking Status: Never smoker alcohol intake: never current occupational status: other Travel in the last 8 weeks?: None Have you lived/traveled outside US in past 30 days?: No Contact w/someone who lives/traveled outside US past 30 days?: No Exposure to someone with infectious disease in past 14 days?: No Do you have a fever (greater than 100.4 F or 38 C)?: No Have you tested positive for COVID-19?: No Exposed to someone with COVID-19 in past 14 days?: No Do you have a sore throat?: No Do you have a cough?: No Do you have any weakness?: No Do you have any diarrhea?: No Are you experiencing any unusual bleeding?: Yes Do you have any muscle aches/pain?: No Do you have any abdominal pain?: No Are you experiencing loss of taste or smell?: No ROS Obtained: Yes All systems reviewed & no additional complaints except as documented Physical Exam General General appearance: alert ENT ENT exam: Present normal exam and other (No evidence of any vesicular lesions ear exam is normal no soft tissue abnormalities noted on the right side of the face in V1 2 and 3 distribution) Respiratory Respiratory exam: Present normal lung sounds bilaterally Cardiovascular Cardiovascular exam: Present regular rate Neurological Exam Neurological exam: Present alert and oriented X3 Medical Decision Making Medical Records Screening: Per USPSTF and CDC recommendations, given the prevalence of disease in our region, it is our hospital?s policy to screen for HIV and viral Hepatitis for all patients aged 18 and over and those with ongoing risk factors. Sumanth Inquiry Pt receiving controlled substance: No Vital Signs: 02/03/25 10:55 02/03/25 10:58 02/03/25 11:00 Temperature 98.5 F Temperature Source Oral Pulse Rate 80 65 Pulse Rate [Right Radial] 82 Respiratory Rate 18 Blood Pressure 131/85 119/74 Blood Pressure [Right Arm] 131/85 Blood Pressure Mean [Right Arm] 100 Blood Pressure Source [Right Arm] Automatic Cuff Blood Pressure Position [Right Arm] Supine 02 Sat by Pulse Oximetry 95 98 98 Oxygen Delivery Method Room Air 02/03/25 11:30 02/03/25 12:00 Temperature Temperature Source Pulse Rate 60 60 Pulse Rate [Right Radial] Respiratory Rate Blood Pressure 112/67 125/74 Blood Pressure [Right Arm] Blood Pressure Mean [Right Arm] Blood Pressure Source [Right Arm] Blood Pressure Position [Right Arm] 02 Sat by Pulse Oximetry 96 98 Oxygen Delivery Method Medical Decision Narrative: Patient with above history and physical I did review the patient's imaging at [facility] and ED visit there within the last few weeks which were unremarkable patient is not improving on oxcarbazepine which is first-line therapy for trigeminal neuralgia. I do agree with this diagnosis. Do not suspect that this is a vesicular or viral infection or some other alternative diagnosis such as giant cell arteritis etc. Patient likely needs to be seen by a neurosurgeon to be evaluated for possible gamma knife surgery and other modalities. In the meantime we will try to get him in sooner with Dr. Lora. Historically Dr. Lora has not taken referrals from our emergency department however I spoke with an executive at our hospital who will work on trying to get the patient into Dr. Lora sooner. This has been discussed with the patient and we are also calling [facility] to make a appointment with neurosurgery. After this appointment is made we will have the patient follow-up in an outpatient setting. I may add gabapentin onto his pain regimen to see if this helps him at all. Reassessment we spoke with [facility] and they will try to get the patient into neurosurgery soon as possible and will call him for an appointment. Patient will also be expecting a phone call for follow-up appointment with Dr. Lora. In the meantime I have prescribed gabapentin in addition to his oxcarbazepine he was discharged in stable condition without symptoms at the moment. Critical Care Critical Care Time Critical Care Time: No
--- NOTE | 2025-02-03 11:55 | PC.NURSE ---
Contacted at 1150 to make an appointment with neurosurgery. It has to be a consult because the clinics are closed today. Dr cameron on the phone for a consult
[2025-02-03 12:00] VITALS: BP 125/74; PULSE 60; O2SAT 98
[2025-02-03 12:13] VITALS: BP 125/74; PULSE 60; RESP 14; TEMP 36.9; O2SAT 99
== END 2025-02-03 12:22 | disposition home or self-care (01) ==
PROVIDERS: Emergency Provider Student in an Organized Health Care Education/Training Program; PCP Obstetrics & Gynecology
DX: G50.0 Trigeminal neuralgia (principal)
CPT/HCPCS: 99283; 99284

== ENCOUNTER 2025-03-05 15:37 | Outpatient (CLI) | payer MEDICARE, BC, SELFPAY ==
--- OUTSIDE RECORDS SUMMARY | 2025-01-03 03:00 | XMS_ITS | Encounter Summary ---
Author Organization [employer] ([place], [place], [place], [place]) Address [address] [place] [address] Care Team Providers Care Rigger Chief Name Role Phone Coleman Fitzgerald MD Primary Care Provider [phone] Thalia Brito PA-C Unavailable [phone] Eduard Harris MD Unavailable Reason for Visit * Reason Comments Pacemaker /ICD Home Monitoring Encounter Details Date Type Department Care Team (Late st Contact Info) Description 01/03/2025 3:00 AM EDT Clinical Support [facility] Electrophysiology [address] [place] [phone] [place] [address] [place] [address] [address] [place] [address] Encounter for adjustment or management of cardiac [...] Date Narinder rded Speak language other than Wallisian at home Not on file 06/10/2023 Want [...] Description 03/11/2025 1:30 PM EDT Office Visit [facility] Cardiology [address] [place] [address] Corina Gómez MD [address] [place] [phone] documented as of this encounter Visit Diagnoses Diagnosis Encounter for adjustment or management of cardiac device- Primary 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 Ischemic cardiomyopathy Other specified forms of chronic ischemic heart disease Chronic systolic congestive heart failure (HCC) documented in this encounter Care Teams Rigger Chief Relationship Specialty Start Date End Date Coleman Fitzgerald MD [address] [place] [address] [place] [address] PCP - General Family Medicine 05/28/22 Thalia Brito, PA-C [address] [facility] [address] [id number] Cardiology 01/07/23 [place] [address] [place] [address] [address] [place], [place] [id number] Cardiology 01/07/23 documented as of this encounter
--- OUTSIDE RECORDS SUMMARY | 2025-02-11 03:00 | XMS_ITS | Encounter Summary ---
Author Organization [employer] ([place], [place], [place], [place]) Address [address] [place] [address] Care Team Providers Care Police Aide Name Role Phone Coleman Fitzgerald MD Primary Care Provider [phone] Thalia Brito PA-C Unavailable [phone] Eduard Harris MD Unavailable Reason for Visit * Reason Comments Pacemaker /ICD Home Monitoring Encounter Details Date Type Department Care Team (Late st Contact Info) Description 02/11/2025 3:00 AM EDT Clinical Support [facility] Electrophysiology [address] [place] [address] [place] [address] [place] [address] [address] [place] [address] Encounter for adjustment or management of cardiac [...] Date Narinder rded Speak language other than [place] Islander at home Not on file 06/10/2023 Want [...] Description 03/11/2025 1:30 PM EDT Office Visit [facility] Cardiology [address] [place] [address] Corina Gómez MD [address] [place] [address] documented as of this encounter Visit Diagnoses Diagnosis Encounter for adjustment or management of cardiac device- 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
--- OUTSIDE RECORDS SUMMARY | 2025-03-05 15:40 | XMS_ITS | Encounter Summary ---
Author Organization [employer] ([place], [place], [place], [place]) Address [address] [place] [address] Care Team Providers Care Run Lead Name Role Phone Coleman Fitzgerald MD Primary Care Provider [phone] Thalia Brito PA-C Unavailable [phone] Eduard Harris MD Unavailable Reason for Visit * Reason Comments Medication Refill Encounter Details Date Type Department Care Team (Late st Contact Info) Description 01/31/2025 Refill [facility] Cardiology [address] [place] [address] Thalia Brito, CHRISTIAN [address] [facility] [address] [place] [address] Social History Tobacco Use Types Packs/Day Years [...] Date Narinder rded Speak language other than Eritrean at home Not on file 06/10/2023 Want [...] Description 03/11/2025 1:30 PM EDT Office Visit [facility] Cardiology [address] [place] [address] Corina Gómez MD [address] [place] [address] documented as of this encounter Visit Diagnoses Not on filedocumented in this encounter Care Teams Run Lead Relationship Specialty Start Date End Date Coleman Fitzgerald MD [address] [place] [address] [place] [address] PCP - General Family Medicine 05/28/22 Thalia Brito, PA-C [address] [place] [address] [address] [place] [id number] Cardiology 01/07/23 [place] [address] [place] [address] [address] [place] [address] Cardiology 01/07/23 documented as of this encounter
--- OUTSIDE RECORDS SUMMARY | 2025-03-05 15:42 | XMS_ITS | Clinical Summary ---
Author Organization [employer] ([place], [place], [place], [place]) Address [address] [place] [address] Care Team Providers Care Medical Oncology Physician Name Role Phone Coleman Fitzgerald MD Primary Care Provider [phone] Thalia Brito PA-C Unavailable [phone] Eduard Harris MD Unavailable Allergies Active Allergy Reactions Criticality Noted Date Comments Propoxyphene Itching 03/30/2018 Propoxyphene N-Acetaminophen 023 Sulfa (Sulfonamide Antibiotics) Hives,Itching High 1 05/30/2017 Medications aspirin 81 MG EC tablet Aspirin Low-Strengt h 81 mg tablet,kacey yed release Daily Active clopidogreL (PLAVIX) 75 mg tablet Take by mouth. 2 Active gabapentin (NEURONTIN) 100 MG capsule Take by mouth. 2 Active montelukast (SINGULAIR) 10 mg tablet Take 1 tablet (10 mg total) by mouth. Active tamsulosin (FLOMAX) 0.4 mg Cap 24 hr capsule 1 capsule (0.4 mg total). Active zolpidem (AMBIEN) 10 mg tablet Take by mouth. 3 Active atorvastatin (LIPITOR) 40 MG tablet TAKE 1 TABLET AT BEDTIME 90 tablet 3 4 Active amiodarone (PACERONE) 200 MG tabletIndicatio ns:Ventricular tachycardia (HCC) Take 0.5 tablets (100 mg total) by mouth daily. 45 tablet 3 5 Active bisoprolol (ZEBETA) 5 MG tablet Take 0.5 tablets (2.5 mg total) by mouth nightly. 45 tablet 3 5 026 Active lisinopriL (ZestriL) 2.5 MG tablet Take 1 tablet (2.5 mg total) by mouth daily. 90 tablet 3 5 Active furosemide (LASIX) 20 MG tablet TAKE 1 TABLET BY MOUTH EVERY DAY 90 tablet 3 5 Active furosemide (LASIX) 20 MG tablet Take 1 tablet (20 mg total) by mouth daily. 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 10/12/2023 Encounters Date Type Department Care Team Description 02/11/2025 3:00 AM EDT Clinical Support [facility] Electrophysiology [address] [place] [address] Morris Barr MD Encounter for adjustment or management of cardiac device (Primary Dx); AICD (automatic cardioverter/defibr illator) present; Ischemic cardiomyopathy; Chronic systolic congestive heart failure (HCC) 01/31/2025 Refill [facility] Cardiology [address] [place] [address] Thalia Brito PA-C 01/03/2025 3:00 AM EDT Clinical Support [facility] Electrophysiology [address] [place] [address] Morris Barr MD Encounter for adjustment or management of cardiac device (Primary Dx); AICD (automatic cardioverter/defibr illator) present; Ischemic cardiomyopathy; Chronic systolic congestive heart failure (HCC) 12/03/2024 5:00 AM EDT Clinical Support [facility] Electrophysiology [address] [place] [address] Jackelin Almaguer MD Encounter for adjustment [...] Date Narinder rded Speak language other than Slovenian at home Not on file 06/10/2023 Want [...] Description 03/11/2025 1:30 PM EDT Office Visit [facility] Cardiology [address] [place] [address] Corina Gómez MD [address] [place], [place] [phone] Health Maintenance Due Date Last Done Comments Medicare Initial AWV G0438 Depression Screening (12+) 1947 Shingles Vaccine (Zoster) (1 of 2) 07/31/1985 Respiratory Syncytial Virus (RSV) Adult or (1 - 1-dose 75+ series) 07/31/2010 Pneumococcal 50+ years (2 of 2 - PPSV23, PCV20, or PCV21) 04/17/2015 02/20/2015 Falls Risk Screening 05/23/2024 COVID-19 VACCINE (2023-2 5 season) 2025 02/21/2024, 03/24/2023, 03/02/2022, Additional history exists Influenza Vaccine (#1) 2025 , 03/03/2023, 02/16/2022 Tobacco Cessation Counseling and Screening (12+) 09/05/2025 09/05/2024 DTAP/TDAP/TD VACCINES (4 - T d or Tdap) 07/27/2029 07/28/2019, 12/26/2013, 12/26/2013 Medical Devices Implanted Type Area Data Modeling Specialist Device Identifier Shelf Expiration Date Model / Serial / Lot Icd-11/01/2016 Implanted:2016 (Quantity not on file) ICD [employer] EVERA / [id number] / Description:DEPENDENT Insurance [place]IC[place] [address] [place] [address] [facility] SU[facility] Care Teams Medical Oncology Physician Relationship Specialty Start Date End Date Coleman Fitzgerald MD [address] [place] [address] [place] [address] PCP - General Family Medicine 05/28/22 Thalia Brito PA-C [address] [place] [address] [address] Cardiology 01/07/23 Eduard Harris MD [address] [place] [address] [address] Cardiology 01/07/23
--- OUTSIDE RECORDS SUMMARY | 2025-03-05 15:43 | XMS_ITS | Encounter Summary ---
Author Organization [employer] ([place], [place], [place], [place]) Address [address] [place] [address] Care Team Providers Care Aircraft Sales Representative Name Role Phone Coleman Fitzgerald MD Primary Care Provider [phone] Thalia Brito PA-C Unavailable [phone] Eduard Harris MD Unavailable Encounter Details Date Type Department Care Team (Late st Contact Info) Description 06/06/2018 Transcribed Document [facility] [place] [address] ProviderShannon MD [address] [place] [address] Social History Tobacco Use Types Packs/Day Years Used Date Smoking Tobacco: Never Assessed Sex and Gender Information Value Date Recorded Sex Assigned at Not on file Legal Sex Male 5:30 PM CDT Gender Identity Not on file Sexual Orientation Not on file documented as of this encounter Miscellaneous Notes * [employer]ner Conversion Note - Shannon ProviderMD - 06/06/2018 7:53 PM RING STRIKER DATE OF STUDY: 06/06/2018 PATIENT DATA: Age: [...] CC1: Danielle Fernandez M.D. Electronically signed by [facility] Conversion Personal Banking Representative Cerner at 09/06/2022 9:34 AM CDT documented in this encounter Plan of Treatment Upcoming Encounters Date Type Department Care Team (Late st Contact Info) Description 03/11/2025 1:30 PM EDT Office Visit [facility] Cardiology [address] [place] [address] Corina Gómez MD [address] [place] [address] documented as of this encounter Visit Diagnoses Not on filedocumented in this encounter Care Teams Aircraft Sales Representative Relationship Specialty Start Date End Date Coleman Fitzgerald MD [address] [place] [address] [place] [address] PCP - General Family Medicine 05/28/22 Thalia Brito PA-C [address] [place] [address] [place] [address] Cardiology 01/07/23 Eduard Harris MD [address] [place] [address] [address] [place] [address] Cardiology 01/07/23 documented as of this encounter
--- OUTSIDE RECORDS SUMMARY | 2025-03-05 15:43 | XMS_ITS | Clinical Summary ---
Author Organization [facility] Address [address] [place] [address] Care Team Providers Care Supervisor Fruit Grading Name Role Phone Coleman Fitzgerald MD Primary Care Provider [phone] Allergies Active Allergy Reactions Criticality Noted Date [...] MG/0.1ML nasal spray Call 911. Don't prime. [place] in 1 nostril for overdose. 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 Not hard at all 03/26/2024 [facility] [place] of Occupat ional Health - Occupational Stress [...] GED or equivalent No 03/23/2024 Preferred Language Gambian 03/23/2024 PHQ-2 Answer Date Recorded Patient Health [...] PLAN OF CARE 05/23/2019 02/22/2019, 08/22, 04/05/2018 INFLUENZA VACCINE 12/21/2024 02/10/2024, , 02/16/2022 COVID-19 Vaccine (2023-2 5 season) 2025 02/21/2024, 03/24/2023, 03/02/2022, Additional history exists TDAP/TD VACCINES (2 - Td or Tdap) 07/27/2029 020 Medical Devices Implanted Type Area Wet Machine Cutter Device Identifier Shelf Expiration Date Model / Serial / Lot Icd ICD Clipapplr M/ Endo Ligaclip Rot 10mm /Rafiq - [id number] Implanted:Qty : 1 on 04/07/2023 by Nasim Samayoa MD at [facility] Implant N/A: Abdomen [employer] DIV OF J AND J [id number] 02/19/2026 [id number] / / [id number] Insurance MEDICARE A & B [facility] Advance Directives * CPR (Attempt to [...] or is breathing): Full Support Care Teams Supervisor Fruit Grading Relationship Specialty Start Date End Date Coleman Fitzgerald MD [address] [place] [address] PCP - General 01/15/15
--- OUTSIDE RECORDS SUMMARY | 2025-03-05 15:43 | XMS_ITS | Encounter Summary ---
Author Organization [employer] ([place], [place], [place], [place]) Address [address] [place] [address] Care Team Providers Care Medical Director/Head Team Physician Name Role Phone Coleman Fitzgerald MD Primary Care Provider [phone] Thalia Brito PA-C Unavailable [phone] Eduard Harris MD Unavailable Encounter Details Date Type Department Care Team (Late st Contact Info) Description 01/16/2019 Transcribed Document [facility] Pulm & Critical Care Medicine [address] [facility] [address] [place] [address] Tien Tapia MD [address] [facility] [address] [place], [place] [id number] Social History Tobacco Use Types Packs/Day Years [...] Description 03/11/2025 1:30 PM EDT Office Visit [facility] Cardiology [address] [place] [phone] Corina Gómez MD [address] [place] [address] documented as of this encounter Visit Diagnoses Not on filedocumented in this encounter Care Teams Medical Director/Head Team Physician Relationship Specialty Start Date End Date Coleman Fitzgerald MD [address] [place] [address] [place] [address] PCP - General Family Medicine 05/28/22 Thalia Brito PA-C [address] [place] [address] [address] Cardiology 01/07/23 Eduard Harris MD [address] [place] [address] [address] Cardiology 01/07/23 documented as of this encounter
--- OUTSIDE RECORDS SUMMARY | 2025-03-05 15:43 | XMS_ITS | Encounter Summary ---
Author Organization [employer] ([place], [place], [place], [place]) Address [address] [place] [address] Care Team Providers Care Head Of Store Operations Name Role Phone Coleman Fitzgerald MD Primary Care Provider [phone] Thalia Brito PA-C Unavailable [phone] Eduard Harris MD Unavailable Reason for Visit * Reason Comments Medication Refill Encounter Details Date Type Department Care Team (Late st Contact Info) Description 01/17/2023 Refill [facility] Cardiology [address] [place] [phone] [place] [address] [place] [address] [address] [place] [address] Social History Tobacco Use Types Packs/Day Years [...] Description 03/11/2025 1:30 PM EDT Office Visit [facility] Cardiology [address] [phone] Corina Gómez MD [address] [place] [address] documented as of this encounter Visit Diagnoses Not on filedocumented in this encounter Care Teams Head Of Store Operations Relationship Specialty Start Date End Date Coleman Fitzgerald MD [address] [place] [address] [place] [address] PCP - General Family Medicine 05/28/22 Thalia Brito, PA-C [address] [facility] [address] [place] [address] Cardiology 01/07/23 [place] [address] [place] [address] [address] [place] [address] Cardiology 01/07/23 documented as of this encounter
--- OUTSIDE RECORDS SUMMARY | 2025-03-05 15:43 | XMS_ITS | Encounter Summary ---
Author Organization [employer] ([place], [place], [place], [place]) Address [address] [place] [address] Care Team Providers Care Drill Press Operator Numerical Control Name Role Phone Coleman Fitzgerald MD Primary Care Provider [phone] Thalia Brito PA-C Unavailable [phone] Eduard Harris MD Unavailable Reason for Visit * Reason Comments Medication Refill Encounter Details Date Type Department Care Team (Late st Contact Info) Description 11/13/2022 Refill [facility] Cardiology [address] [place] [phone] Eduard Harris MD [address] [place] [address] [address] [place] [address] Ventricular tachycardia (HCC) Social History Tobacco Use [...] Description 03/11/2025 1:30 PM EDT Office Visit [facility] Cardiology [address] [place] [phone] Corina Gómez MD [address] [place] [phone] documented as of this encounter Visit Diagnoses Diagnosis Ventricular tachycardia (HCC) Paroxysmal ventricular tachycardia documented in this encounter Care Teams Drill Press Operator Numerical Control Relationship Specialty Start Date End Date Coleman Fitzgerald MD [address] [place] [place] [address] PCP - General Family Medicine 05/28/22 Thalia Brito, PA-C [address] [place] [address] [place] [address] Cardiology 01/07/23 [place] [address] [place] [address] [address] Cardiology 01/07/23 documented as of this encounter
--- OUTSIDE RECORDS SUMMARY | 2025-03-05 15:43 | XMS_ITS | Encounter Summary ---
Author Organization [employer] ([place], [place], [place], [place]) Address [address] [place] [address] Care Team Providers Care Delivery Route Driver Name Role Phone Coleman Fitzgerald MD Primary Care Provider [phone] Thalia Brito PA-C Unavailable [phone] Eduard Harris MD Unavailable Encounter Details Date Type Department Care Team (Late st Contact Info) Description 12/23/2019 Transcribed Document [facility] Pulm & Critical Care Medicine [address] [place] [address] [address] [place] [address] Sergio Ramirez MD [address] [facility] [address] [place], [place] [id number] Social History Tobacco Use Types Packs/Day Years [...] Normal DLCO. 4. Clinical correlation is advised. /[id number] Sergio Ramirez MD EAC/AQ / EAC / MODL /[id number] CC: Eduard Harris MD documented in this encounter Plan of Treatment Upcoming Encounters Date Type Department Care Team (Late st Contact Info) Description 03/11/2025 1:30 PM EDT Office Visit [facility] Cardiology [address] [place] [address] Corina Gómez MD [address] [place], [place] [phone] documented as of this encounter Visit Diagnoses Not on filedocumented in this encounter Care Teams Delivery Route Driver Relationship Specialty Start Date End Date Coleman Fitzgerald MD [address] [place] [address] [place] [address] PCP - General Family Medicine 05/28/22 Thalia Brito, PA-C [address] [place] [address] [id number] Cardiology 01/07/23 Eduard Harris MD [address] [place] [address] [address] [place] [address] Cardiology 01/07/23 documented as of this encounter
[2025-03-05 18:32] LABS: Albumin Level 3.6 g/dl (3.5-5.0); Chloride 90 mmol/L (98-107); Potassium 4.6 mmoL/L (3.5-5.1); Sodium 127 mmol/L (136-145)
[2025-03-05 18:34] LABS: Alanine Aminotransferase 14 U/L (12-78); Anion Gap 10.6 mEq/L (5-15); Aspartate Amino Transferase 22 U/L (17-59); Blood Urea Nitrogen 12 mg/dl (9-20); Carbon Dioxide 31 mmol/L (22.0-30.0); Creatinine,Serum 0.90 mg/dl (0.66-1.25); Estimated Glomerular Filt Rate 79 ml/min (>60); GFR (African American) 96 ML/MIN (>60)
[2025-03-05 18:35] LABS: Albumin/Globulin Ratio 1.4 (1.1-1.8); Alkaline Phosphatase 91 U/L (38-126); Bilirubin,Total 0.7 mg/dl (0.2-1.3); Calcium 8.2 mg/dl (8.4-10.2); Globulin 2.5 g/dL (1.3-3.2); Glucose 97 mg/dl (74-100); Total Protein,Serum 6.1 g/dl (6.3-8.2)
== END 2025-03-05 23:59 | disposition home or self-care (01) ==
LOC: LAB 15:38
PROVIDERS: PCP Family Medicine; Visit Provider Specialist
DX: E87.1 Hypo-osmolality and hyponatremia (principal); Z79.899 Other long term (current) drug therapy
CPT/HCPCS: 36415; 80053

== ENCOUNTER 2025-05-20 11:51 | Outpatient (CLI) | payer MEDICARE, BC, SELFPAY ==
--- OUTSIDE RECORDS SUMMARY | 2025-03-19 02:00 | XMS_ITS | Encounter Summary ---
Author Organization [employer] ([place], [place], [place], [place], [place]) Address [address] [place] [address] Care Team Providers Care Pipeline Welder Name Role Phone Coleman Fitzgerald MD Primary Care Provider [phone] Thalia Brito PA-C Unavailable [phone] Eduard Harris MD Unavailable Reason for Visit * Reason Comments Pacemaker /ICD Home Monitoring Encounter Details Date Type Department Care Team (Late st Contact Info) Description 03/19/2025 3:00 AM EDT Clinical Support [facility] Electrophysiology [address] [place] [phone] [place] [address] [place] [address] [address] [place] [address] Encounter for adjustment or management of cardiac [...] Date Narinder rded Speak language other than Dominican at home Not on file 06/10/2023 Want [...] as of this encounter Plan of Treatment Not on file documented as of this encounter Visit Diagnoses Diagnosis Encounter for adjustment or management of cardiac device- 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
--- OUTSIDE RECORDS SUMMARY | 2025-03-20 02:00 | XMS_ITS | Encounter Summary ---
Author Organization [employer] ([place], [place], [place], [place], [place]) Address [address] [place] [address] Care Team Providers Care Electronics Assembler And Tester Name Role Phone Coleman Fitzgerald MD Primary Care Provider [phone] Thalia Brito PA-C Unavailable [phone] Eduard Harris MD Unavailable Reason for Visit * Reason Comments Pacemaker /ICD Home Monitoring Encounter Details Date Type Department Care Team (Late st Contact Info) Description 03/20/2025 3:00 AM EDT Clinical Support [facility] Electrophysiology [address] [place] [phone] [place] [address] [place] [address] [address] [place] [address] Encounter for adjustment or management of cardiac [...] Date Narinder rded Speak language other than [place] at home Not on file 06/10/2023 Want [...] (HCC) documented in this encounter Care Teams Electronics Assembler And Tester Relationship Specialty Start Date End Date Coleman Fitzgerald MD [address] [place] [address] [place] [address] PCP - General Family Medicine 05/28/22 Thalia Brito PA-C [address] [place] [address] [address] Cardiology 01/07/23 [place] [address] [place] [address] [address] Cardiology 01/07/23 documented as of this encounter
--- OUTSIDE RECORDS SUMMARY | 2025-04-22 03:00 | XMS_ITS | Encounter Summary ---
Author Organization [employer] ([place], [place], [place], [place], [place]) Address [address] [place] [address] Care Team Providers Care Leather Etcher Name Role Phone Coleman Fitzgerald MD Primary Care Provider [phone] Thalia Brito PA-C Unavailable [phone] Eduard Harris MD Unavailable Reason for Visit * Reason Comments Pacemaker /ICD Home Monitoring Encounter Details Date Type Department Care Team (Late st Contact Info) Description 04/22/2025 3:00 AM EST Clinical Support [facility] Electrophysiology [address] [place] [address] [place] [address] [place] [address] [address] [place] [address] Encounter for adjustment or management of cardiac [...] Date Narinder rded Speak language other than Djiboutian at home Not on file 06/10/2023 Want [...] (HCC) documented in this encounter Care Teams Leather Etcher Relationship Specialty Start Date End Date Coleman Fitzgerald MD [address] [place] [address] [place] [address] PCP - General Family Medicine 05/28/22 Thalia Brito PA-C [address] [place] [address] [place] [id number] Cardiology 01/07/23 [place] [address] [place] [address] [address] Cardiology 01/07/23 documented as of this encounter
--- OUTSIDE RECORDS SUMMARY | 2025-05-20 11:55 | XMS_ITS | Encounter Summary ---
Author Organization [facility] Address [address] [place] [address] Care Team Providers Care Feed Blender Name Role Phone Herminio Tapia Unavailable [phone] Santiago Morrell MD Unavailable [phone] Thanh Fitzgerald MD Primary Care Provider [phone] Reason for Visit * Reason Comments Med Change Request Encounter Details Date Type Department Care Team (Late st Contact Info) Description 01/28/2025 Refill [facility] [address] [place] [address]; Room [address].03.[address] [place] [address] Adrian Gibson MD [address] [place] [address] Social History Tobacco Use Types Packs/Day [...] documented as of this encounter Care Teams Feed Blender Relationship Specialty [place] [address] PCP - General 01/18/23 Herminio Tapia PA [address] [facility] [address] [place] [address] Physician Head Coach Otolaryngology 12/16/22 Santiago [place] MD [facility] [address] Referring Physician 12/16/22 documented as of this encounter
--- OUTSIDE RECORDS SUMMARY | 2025-05-20 11:55 | XMS_ITS | Clinical Summary ---
Author Organization [facility] Address [address] [place] [address] Care Team Providers Care Top Edge Beveler Name Role Phone Herminio Tapia Unavailable [phone] Santiago Morrell MD Unavailable [phone] Thanh Fitzgerald MD Primary Care Provider [phone] Allergies Active Allergy Reactions Criticality Noted Date Comments Cephalexin Itching Medium 12/20/2022 Penicillins Unknown - Patient st ates they do not know rxn details Low 12/20/2022 Sulfa Drugs Unknown - Patient st ates they do not know rxn details Low 12/20/2022 Medications gabapentin (Neurontin) 100 MG capsule gabapentin Active amiodarone (Pacerone) 200 MG tablet Take 1 [...] BY MOUTH ONCE A DAY AT BEDTIME 2 Active lisinopril-hydr oCHLOROthiazide 10-12.5 MG tablet Take 1 tablet by mouth daily. Active bisoprolol (Zebeta) 5 MG tablet Take 1 tablet by mouth daily. Active OXcarbazepine (Trileptal) 150 MG tablet Take 1 tablet by mouth 2 times a day. 60 tablet Active Resolved Problems Problem Noted Date Diagnosed Date Resolved Date Second hand smoke exposure 12/20/2022 0 02/10/2025 Family History Medical History Relation Name Comments Heart disease Father Heart disease Mother Cancer Other Mother's brother Relation Name Status Comments Father Mother Other Mother's brother Alive Social History Tobacco Use Types Packs/Day Years Used Date Smoking Tobacco: Former Cigarettes 1 30 1 950 - 1979 Smokeless Tobacco: Never Tobacco Cessation:Counseling [...] 01/28/2025 9:39 AM EDT Plan of Treatment Health Maintenance Due [...] 02/20/2015, 11/05/2005 Dental Oral Exam 08/19/2022 02/18/2022 [id number] Vaccine ( season) 2025 02/21/2024, 03/24/2023, 03/02/2022, Additional history exists UKY-Influenza Vaccine (#1) 01/21/202502/09, 03/03/2023, 02/16/2022, Additional history exists Dental X-Ray: Full Mouth 02/03/2025 02/02/2022 [facility]Y-DTaP,Tdap,and Td Vaccines (4 - Td or Tdap) 07/27/2029 07/28/2019, 12/26/2013, 12/26/2013, Additional history exists UKY-RSV Vaccine: 60+ Years or Completed 03/09/2024 HPV Vaccines (No Doses Required) Completed UKY-HIB Vaccines Aged Out No longer e [...] Procedure Name Priority Date/Time Associated Diagnosis Comments COMPREHENSIVE ORAL EVALUATION - NEW OR ESTABLISHED PATIENT Routine 02/18/2022 9:00 AM EDT Encounter for dental examination and cleaning with abnormal findings PANORAMIC RADIOGRAPHIC IMAGE Routine 02/02/2022 1:00 PM EDT Encounter for dental examination from Last 3 Months or Most Recently Relevant to Health [place] [address] ANTH Care Teams Top Edge Beveler Relationship Specialty [place] [address] PCP - General 01/18/23 Herminio Tapia PA [address] [facility] [address] [place] [address] Physician Fax Machine Operator Otolaryngology 12/16/22 Santiago [place] MD Dtr173 [address] Referring Physician 12/16/22
--- OUTSIDE RECORDS SUMMARY | 2025-05-20 11:55 | XMS_ITS | Encounter Summary ---
Author Organization [employer] ([place], [place], [place], [place], [place]) Address [address] [place] [address] Care Team Providers Care Bingo Floater Name Role Phone Coleman Fitzgerald MD Primary Care Provider [phone] Thalia Brito PA-C Unavailable [phone] Eduard Harris MD Unavailable Encounter Details Date Type Department Care Team (Late st Contact Info) Description 12/23/2019 Transcribed Document [facility] Pulm & Critical Care Medicine [address] [place] [address] [place] [address] Sergio Ramirez MD [address] [facility] [address] [place] [address] Social History Tobacco Use Types Packs/Day Years [...] Normal DLCO. 4. Clinical correlation is advised. /[id number] Sergio Ramirez MD EAC/AQ / EAC / MODL /[id number] CC: Eduard Harris MD documented in this encounter Plan of Treatment Not on file documented as of this encounter Visit Diagnoses Not on filedocumented in this encounter Care Teams Bingo Floater Relationship Specialty Start Date End Date Coleman Fitzgerald MD [address] [place] [address] [place] [address] PCP - General Family Medicine 05/28/22 Thalia Brito PA-Trevor [address] [place] [address] [address] Cardiology 01/07/23 Eduard Harris MD [address] [place] [address] [address] Cardiology 01/07/23 documented as of this encounter
--- OUTSIDE RECORDS SUMMARY | 2025-05-20 11:55 | XMS_ITS | Encounter Summary ---
Author Organization [facility] Address [address] [place] [address] Care Team Providers Care Services Advisor Name Role Phone Pcp, No Primary Care Provider Unavailabl Nuria Pastor DMD Unavailable [phone] Domingo Law Unavailable Unavailable Herminio Tapia PA Unavailable [phone] Santiago Morrell MD Unavailable [phone] Thanh Fitzgerald MD Primary Care Provider [phone] Encounter Details Date Type Department Care Team (Late st Contact Info) Description 11/26/2022 [facility] [address] [place] [address] Erich Lopez APRN [address] [place] [address] Mucocele of lower lip (Primary Dx) Social History Tobacco Use Types Packs/Day Years Used Date Smoking Tobacco: Former Cigarettes 0 Q uit: 1979 Smokeless Tobacco: Never Alcohol Use Standard [...] tissues documented in this encounter Care Teams Services Advisor Relationship Specialty Start Date End Date Pcp, No [address] [place] [address] PCP - General Family Medicine 02/02/22 01/17/23 [place] [address] PCP - General 01/18/23 Nuria Muniz DMD [address] [facility] [address] [place] [address] Dentist Dental Slurry Blender 02/04/22 Domingo Law [facility] Dental Student Dental Slurry Blender 02/04/22 09/13/23 Herminio Tapia PA [address] [place] [address] Physician Bridge Carpenter Otolaryngology 12/16/22 Santiago Morrell MD Alo039 [address] Referring Physician 12/16/22 documented as of this encounter
--- OUTSIDE RECORDS SUMMARY | 2025-05-20 11:55 | XMS_ITS | Clinical Summary ---
Author Organization [facility] Address [address] [place] [address] Care Team Providers Care Broadcast Meteorologist Name Role Phone Coleman Fitzgerald MD Primary Care Provider [phone] Allergies Active Allergy Reactions Criticality Noted Date [...] MG/0.1ML nasal spray Call 911. Don't prime. [place] in 1 nostril for overdose. 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 Not hard at all 03/26/2024 [facility] [place] of Occupat ional Health - Occupational Stress [...] GED or equivalent No 03/23/2024 Preferred Language Central African 03/23/2024 PHQ-2 Answer Date Recorded Patient Health [...] VACCINE 12/21/2024 02/10/2024, , 02/16/2022 COVID-19 Vaccine (8 - Modern a risk season) 2025 02/21/2024, 03/24/2023, 03/02/2022, Additional history exists TDAP/TD VACCINES (2 - Td or Tdap) 07/27/2029 020 Medical Devices Implanted Type Area Chief Of Staff Device Identifier Shelf Expiration Date Model / Serial / Lot Icd ICD Clipapplr M/ Endo Ligaclip Rot 10mm /Rafiq - [id number] Implanted:Qty : 1 on 04/07/2023 by Nasim Samayoa MD at [facility] Implant N/A: Abdomen [employer] DIV [employer] J AND J [id number] 02/19/2026 [id number] / / [id number] Insurance MEDICARE A & B [facility] Advance Directives * CPR (Attempt to Resuscitate) [...] or is breathing): Full Support Care Teams Broadcast Meteorologist Relationship Specialty Start Date End Date Coleman [place] MD [address] [place] [address] PCP - General 01/15/15
--- OUTSIDE RECORDS SUMMARY | 2025-05-20 11:55 | XMS_ITS | Data Portability ---
Author Organization REJI - ADEBAYO Wilkinson BURDETT CLOSED Address [address] [facility] [address] [place] [address] Assessment No assessment recorded. Plan of Treatment Reminders Order Date Submit Date Provider Last Modified By Organization Details Last Modified Time Details Appointments None recorded. Lab urinalysis panel, auto 2021 022 [facility], [address], [address], 2 08:08:37 urinalysis , dipstick, auto 2018 019 [facility], [address], [address], [place], [address], 9 07:16:42 urinalysis , dipstick, auto 2017 018 [facility], [address], [address], [place], [address], 8 08:48:12 Referral None recorded. Procedures None recorded. Surgeries None recorded. Imaging None recorded. Medication Orders None recorded. Patient TargetsNo targets recorded. Patient Instructions Encounter Date Encounter Id Patient Instructions Last Modified By Organization Details Last Modified Time 02/09/2018 [id number] healthy together [facility] Not availabl e 02/13/2018 08:48:12 learning about high blood pressure [facility] Not available 02/13/2018 08:48:12 Erection Problems: Care Instructions [facility] Not available 02/13/2018 08:48:12 follow-up yearly with digital rectal exam. [facility] 02/13/2018 08:48:21 04/06/2019 [id number] [facility] Not available 04/09/2019 07:16:42 Erection Problems: [facility] Not available 04/09/2019 07:16:43 Reason for Referral None Reported. Results Created Date Observation Date Name Description Value Unit Range Abnormal Flag Note LastModifiedBy Organization Detail LastModifiedTime 04/06/2004/06/2019 urina lysis , dipst ick, auto Unknown Analyte Yellow Not Available [facility] [address] [place] [address], [address], 04/06/2019 11:32:54 04/06/2004/06/2019 urina lysis , dipst ick, auto Unknown Analyte Clear Not Available [facility] [address] [place] [address], [address], 04/06/2019 11:32:54 04/06/20 19 04/06/2019 urina lysis , dipst ick, auto Unknown Analyte 1.015 Not Available [facility] [address], [address], 04/06/2019 11:32:54 04/06/20 19 04/06/2019 urina lysis , dipst ick, auto Unknown Analyte 1.003 - 1.035 Not Available [facility] [address], [place], [address], 04/06/2019 11:32:54 04/06/20 19 04/06/2019 urina lysis , dipst ick, auto Unknown Analyte 5.0 Not Available [facility] [address], [place], [address], 04/06/2019 11:32:54 04/06/20 19 04/06/2019 urina lysis , dipst ick, auto Unknown Analyte 5.0 - 8.0 Not Available [facility] [address], [place], [address], 04/06/2019 11:32:54 04/06/2004/06/2019 urina lysis , dipst ick, auto Unknown Analyte Negati ve Not Available [facility] [address], [place], [address], 04/06/2019 11:32:54 04/06/20 19 04/06/2019 urina lysis , dipst ick, auto Unknown Analyte Negati ve Not Available [facility] [address], [place], [address], 04/06/2019 11:32:54 04/06/20 19 04/06/2019 urina lysis , dipst ick, auto Unknown Analyte Negati ve Not Available [facility] [address], [place], [address], 04/06/2019 11:32:54 04/06/2004/06/2019 urina lysis , dipst ick, auto Unknown Analyte Negati ve Not Available [facility] [address], [address], 04/06/2019 11:32:54 04/06/2004/06/2019 urina lysis , dipst ick, auto Unknown Analyte Negtiv e Not Available [facility] [address], [place], [address], 04/06/2019 11:32:54 04/06/20 19 04/06/2019 urina lysis , dipst ick, auto Unknown Analyte Negati ve - Trace Not Available [facility] [address], [place], [address], 04/06/2019 11:32:54 04/06/2004/06/2019 urina lysis , dipst ick, auto Unknown Analyte Normal Not Available [facility] [address], [address], 04/06/2019 11:32:54 04/06/2004/06/2019 urina lysis , dipst ick, auto Unknown Analyte Normal Not Available [facility] [address], [place], [address], 04/06/2019 11:32:54 04/06/20 19 04/06/2019 urina lysis , dipst ick, auto Unknown Analyte 15 mg/dl (Sm) Not Available [facility] [address], [place], [address], 04/06/2019 11:32:54 04/06/2004/06/2019 urina lysis , dipst ick, auto Unknown Analyte Negati ve Not Available [facility] [address], [address], 04/06/2019 11:32:54 04/06/2004/06/2019 urina lysis , dipst ick, auto Unknown Analyte 1 mg/dl Not Available [facility] [address] [place] [address] Rd [address], [place], [address], 04/06/2019 11:32:54 04/06/2004/06/2019 urina lysis , dipst ick, auto Unknown Analyte Normal - 1mg/dl Not Available [facility] [address], [place], [address], 04/06/2019 11:32:54 04/06/2004/06/2019 urina lysis , dipst ick, auto Unknown Analyte 1 mg/dl (+) Not Available [facility] [address], [place], [address], 04/06/2019 11:32:54 04/06/2004/06/2019 urina lysis , dipst ick, auto Unknown Analyte Negati ve Not Available [facility] [address], [place], [address], 04/06/2019 11:32:54 04/06/2004/06/2019 urina lysis , dipst ick, auto Unknown Analyte Negati ve Not Available [facility] [address] [place] [address] Rd [address], [place], [address], 04/06/2019 11:32:54 04/06/2004/06/2019 urina lysis , dipst ick, auto Unknown Analyte Negati ve Not Available [facility] [address], [address], 04/06/2019 11:32:54 04/06/20 19 04/06/2019 urina lysis , dipst ick, auto Unknown Analyte Clean Catch Not Available [facility] [address], [place], [address], 04/06/2019 11:32:54 02/10/20 18 02/09/2018 urina lysis , dipst ick, auto Unknown Analyte Yellow Not Available [facility] [address], [address], 02/09/2018 10:50:27 02/10/20 18 02/09/2018 urina lysis , dipst ick, auto Unknown Analyte Clear Not Available [facility] [address], [address], 02/09/2018 10:50:27 02/10/20 18 02/09/2018 urina lysis , dipst ick, auto Unknown Analyte 1.010 Not Available [facility] [address], [place], [address], 02/09/2018 10:50:27 02/10/20 18 02/09/2018 urina lysis , dipst ick, auto Unknown Analyte 1.003 - 1.035 Not Available [facility] [address], [place], [address], 02/09/2018 10:50:27 02/10/20 18 02/09/2018 urina lysis , dipst ick, auto Unknown Analyte 6.5 Not Available [facility] [address], [address], 02/09/2018 10:50:27 02/10/20 18 02/09/2018 urina lysis , dipst ick, auto Unknown Analyte 5.0 - 8.0 Not Available [facility] [address], [place], [address], 02/09/2018 10:50:27 02/10/20 18 02/09/2018 urina lysis , dipst ick, auto Unknown Analyte Negati ve Not Available [facility] [address], [address], 02/09/2018 10:50:27 02/10/20 18 02/09/2018 urina lysis , dipst ick, auto Unknown Analyte Negati ve Not Available [facility] [address], [place], [address], 02/09/2018 10:50:27 02/10/20 18 02/09/2018 urina lysis , dipst ick, auto Unknown Analyte Negati ve Not Available [facility] [address], [address], 02/09/2018 10:50:27 02/10/20 18 02/09/2018 urina lysis , dipst ick, auto Unknown Analyte Negati ve Not Available [facility] [address], [address], 02/09/2018 10:50:27 02/10/20 18 02/09/2018 urina lysis , dipst ick, auto Unknown Analyte Negtiv e Not Available [facility] [address], [address], 02/09/2018 10:50:27 02/10/20 18 02/09/2018 urina lysis , dipst ick, auto Unknown Analyte Negati ve - Trace Not Available [facility] [address] [place] [address] [address], [place], [address], 02/09/2018 10:50:27 02/10/20 18 02/09/2018 urina lysis , dipst ick, auto Unknown Analyte Normal Not Available [facility] [address] [place] [address], [address], 02/09/2018 10:50:27 02/10/20 18 02/09/2018 urina lysis , dipst ick, auto Unknown Analyte Normal Not Available [facility] [address] [place] [address] [address], [place], [address], 02/09/2018 10:50:27 02/10/20 18 02/09/2018 urina lysis , dipst ick, auto Unknown Analyte Negati ve Not Available [facility] [address], [address], 02/09/2018 10:50:27 02/10/20 18 02/09/2018 urina lysis , dipst ick, auto Unknown Analyte Negati ve Not Available [facility] [address] [place] [address] [address], [address], 02/09/2018 10:50:27 02/10/20 18 02/09/2018 urina lysis , dipst ick, auto Unknown Analyte 4 mg/dl Not Available [facility] [address] [place] [address] [place] [address], [address], 02/09/2018 10:50:27 02/10/20 18 02/09/2018 urina lysis , dipst ick, auto Unknown Analyte Normal - 1mg/dl Not Available [facility] [address] [facility] [address], [place], [address], 02/09/2018 10:50:27 02/10/20 18 02/09/2018 urina lysis , dipst ick, auto Unknown Analyte 1 mg/dl (+) Not Available [facility] [address], [place], [address], 02/09/2018 10:50:27 02/10/20 18 02/09/2018 urina lysis , dipst ick, auto Unknown Analyte Negati ve Not Available [facility] [address] [place] [address] [address], [place], [address], 02/09/2018 10:50:27 02/10/20 18 02/09/2018 urina lysis , dipst ick, auto Unknown Analyte Negati ve Not Available [facility] [address] [place] [address] [address], [place], [address], 02/09/2018 10:50:27 02/10/20 18 02/09/2018 urina lysis , dipst ick, auto Unknown Analyte Negati ve Not Available [facility] [address] [place] [address] [address], [place], [address], 02/09/2018 10:50:27 02/10/20 18 02/09/2018 urina lysis , dipst ick, auto Unknown Analyte Clean Catch Not Available [facility] [address], [place], [address], 02/09/2018 10:50:27 02/10/20 18 02/09/2018 urina lysis , dipst ick, auto Unknown Analyte Automa angeles Not Available [facility] [address], [place], [address], 02/09/2018 10:50:27 07/02/19 22 07/02/2021 urina lysis panel , auto Unknown Analyte Clean Catch Not Available [facility] [address], [place], [address], 07/02/2021 14:41:00 07/02/19 22 07/02/2021 urina lysis panel , auto Unknown Analyte Yellow Not Available [facility] [address], [place], [address], 07/02/2021 14:41:00 07/02/19 22 07/02/2021 urina lysis panel , auto Unknown Analyte Clear Not Available [facility] [address], [place], [address], 07/02/2021 14:41:00 07/02/19 22 07/02/2021 urina lysis panel , auto Unknown Analyte 1.015 Not Available [facility] [address], [place], [address], 07/02/2021 14:41:00 07/02/19 22 07/02/2021 urina lysis panel , auto Unknown Analyte 1.003- 1.035 Not Available [facility] [address], [place], [address], 07/02/2021 14:41:00 07/02/19 22 07/02/2021 urina lysis panel , auto Unknown Analyte 7.0 Not Available [facility] [address], [place], [address], 07/02/2021 14:41:00 07/02/19 22 07/02/2021 urina lysis panel , auto Unknown Analyte 5.0-8. 0 Not Available [facility] [address], [place], [address], 07/02/2021 14:41:00 07/02/19 22 07/02/2021 urina lysis panel , auto Unknown Analyte Negati ve Not Available [facility] [address], [place], [address], 07/02/2021 14:41:00 07/02/19 22 07/02/2021 urina lysis panel , auto Unknown Analyte Negati ve Not Available [facility] [address], [place], [address], 07/02/2021 14:41:00 07/02/19 22 07/02/2021 urina lysis panel , auto Unknown Analyte Negati ve Not Available [facility] [address], [place], [address], 07/02/2021 14:41:00 07/02/19 22 07/02/2021 urina lysis panel , auto Unknown Analyte Negati ve Not Available [facility] [address], [place], [address], 07/02/2021 14:41:00 07/02/19 22 07/02/2021 urina lysis panel , auto Unknown Analyte Negati ve Not Available [facility] [address] [place] [address] [address], [place], [address], 07/02/2021 14:41:00 07/02/19 22 07/02/2021 urina lysis panel , auto Unknown Analyte Negati ve Not Available [facility] [address] [place] [address] [address], [place], [address], 07/02/2021 14:41:00 07/02/19 22 07/02/2021 urina lysis panel , auto Unknown Analyte Normal Not Available [facility] [address] [place] [address] [address], [place], [address], 07/02/2021 14:41:00 07/02/19 22 07/02/2021 urina lysis panel , auto Unknown Analyte Normal Not Available [facility] [address] [place] [address] [address], [place], [address], 07/02/2021 14:41:00 07/02/19 22 07/02/2021 urina lysis panel , auto Unknown Analyte Negati ve Not Available [facility] [address] [place] [address] [address], [place], [address], 07/02/2021 14:41:00 07/02/19 22 07/02/2021 urina lysis panel , auto Unknown Analyte Negati ve Not Available [facility] [address] [place] [address] [address], [place], [address], 07/02/2021 14:41:00 07/02/19 22 07/02/2021 urina lysis panel , auto Unknown Analyte Normal Not Available [facility] [address] [place] [address] [address], [place], [address], 07/02/2021 14:41:00 07/02/19 22 07/02/2021 urina lysis panel , auto Unknown Analyte Normal 1 mg/dl Not Available [facility] [address] [place] [address] [address], [place], [address], 07/02/2021 14:41:00 07/02/19 22 07/02/2021 urina lysis panel , auto Unknown Analyte Negati ve Not Available [facility] [address], [place], [address], 07/02/2021 14:41:00 07/02/19 22 07/02/2021 urina lysis panel , auto Unknown Analyte Negati ve Not Available [facility] [address], [place], [address], 07/02/2021 14:41:00 07/02/19 22 07/02/2021 urina lysis panel , auto Unknown Analyte Negati ve Not Available [facility] [address] [place] [address] [address], [place], [address], 07/02/2021 14:41:00 07/02/19 22 07/02/2021 urina lysis panel , auto Unknown Analyte Negati ve Not Available [facility] [address], [place], [address], 07/02/2021 14:41:00 Result Notes None recorded. Problems Name Problem SNOMED Code Status Onset Date Resolution Date Notes Provider Name and Address Organization Details Recorded Time Cough 41521933 Active 2014 From Automated Load;Prov ider: James López;Sta tus: Active Not Available [facility] 6 03:10:31 Chronic obstructi ve pulmonary disease 82243708 Active 2014 From Automated Load;Prov ider: James López;Sta tus: Active Not Available [facility] 6 03:10:31 Chronic rhinitis 17930886 Active 2015 From Automated Load;Prov ider: James López;Sta tus: Active Not Available [facility] 6 03:10:31 Impotence of organic origin Active 2017 ALICIA TUTTLE JR, MD [address] [place] [address], [address] , [facility] 8 08:48:08 Lower urinary tract symptoms due to benign prostatic hypertrop 11615039500 101 Active 2017 ALICIA TUTTLE JR, MD [address] [place] [address], [address] , [facility] 8 08:48:09 Problem Notes None recorded. Procedures Surgical History Date Name Laterality Status Provider Name and Address Organization Details Recorded Time Heart Surgery completed Rita Castaneda [facility] 02/09/2018 10:48:56 Imaging Results None recorded. Procedure Notes None recorded. Medical Equipment None Reported. Allergies Allergen ID Allergen Name Allergen Category Reaction Reaction Severity Criticality Documentation Date Start Date Code Code System Note Provider Name and Address Organization Details Recorded Time 077869 Substance with sulfonami de structure and antibacte rial mechanism of action (substanc e) medicatio n Not available Not available Not available 04/16/20162014 01402 8003 SNOMED Comme nt: Creat ed By: Bernardo Carter Creat ed Date: 05/05 9:19: 22 AM; Not Available [facility] 6 08:34:47 Medications Name Sig Start Date Stop Date Status Note LastModified by Organization Details LastModified Time losartan 50 mg tablet Take 1 tablet every day by oral route. 07/02 completed Not Available Not Available Not Available atorvasta tin 40 mg tablet Take 1 tablet every day by oral route. active Not Available Not Available No t Available oxybutyni n chloride ER 10 mg tablet,ex tended release 24 hr Take 1 tablet every day by oral route. active Not Available Not Available No t Available guaifenes in 100 mg/5 mL oral liquid As needed 07/02 completed Duration : 10 days;Alex quency: prn;Medi cation Descript ion: guaifene sin; Dosage:a s directed ; refills: 0; Quantity :14 Not Available Not Available Not Available simvastat in 40 mg tablet Daily 07/02 completed Frequenc y: daily;Me dication Descript ion: simvasta tin; Dosage:1 ; Route:or al; refills: 0 Not Available Not Available Not Available carvedilo l 3.125 mg tablet Two times a day active Frequenc y: bid;Medi cation Descript ion: carvedil ol; Dosage:1 ; Route:or al; refills: 0 Not Available Not Available Not Available tamsulosi n 0.4 mg capsule Take 1 capsule every day by oral route. active Not Available Not Available No t Available terazosin 1 mg tablet Daily 07/02 completed Frequenc y: daily;Me dication Descript ion: terazosi n; Dosage:1 ; Route:or al; refills: 0 Not Available Not Available Not Available Betapace 80 mg tablet Two times a day 04/06 completed Duration : 10 days;Alex quency: bid;Medi cation Descript ion: sotalol; Dosage:1 /2; Route:or al; refills: 0; Quantity :60 tablet Not Available Not Available Not Available Nasonex 50 mcg/actua tion [place] Daily 07/02 completed Instruct ions: each nostril; Frequenc y: daily;Me dication Descript ion: mometaso ne nasal; Dosage:2 ; Route:na malinda; refills: 5; Quantity :1 spray Not Available Not Available Not Available finasteri de 5 mg tablet Take 1 tablet every day by oral route. active Not Available Not Available No t Available loratadin e 10 mg tablet Daily 07/02 completed Frequenc y: daily;Me dication Descript ion: loratadi ne; Dosage:1 ; Route:or al; refills: 5; Quantity :30 tablet Not Available Not Available Not Available folic acid 800 mcg tablet Daily 07/02 completed Duration : 30 days;Alex quency: daily;Me dication Descript ion: folic acid; Dosage:1 ; Route:or al; refills: 0; Quantity :30 tablet Not Available Not Available Not Available Aspirin Low-Stren gth 81 mg tablet,de layed release Daily active Duration : 10 days;Alex quency: daily;Me dication Descript ion: aspirin; Dosage:1 ; Route:or al; refills: 0; Quantity :30 tablet Not Available Not Available Not Available amiodaron e 100 mg tablet Take 1 tablet twice a day by oral route. active Not Available Not Available No t Available nitroglyc viktoriya 07/02 completed Not Available Not Available Not Available clopidogr el active Not Available Not Available Not Available monteluka st active Not Available Not Available Not Available fluticaso ne propionat e 07/02 completed Not Available Not Available Not Available gabapenti n active Not Available Not Available Not Available Qvar 07/02 completed Not Available Not Available Not Available Vitals Date Recorded Body height Body mass index (BMI) Body weight Provider Name and Address Organization Details Last Updated DateTime 07/02/2021 190.5 cm 26.2 kg/m2 55682.4 g Marlen Agarwalmariam [facility] 07/02/2021 14:32:02 Date Recorded Body weight Heart rate Systolic And Diastolic Provider Name and Address Organization Details Last Updated DateTime 02/09/2018 52104.44 g 85 /min 132/90 mm[Hg] Rita Castaneda [facility] 02/09/2018 10:44:16 Date Recorded Body weight Heart rate Systolic And Diastolic Provider Name and Address Organization Details Last Updated DateTime 04/06/2019 8164.66 g 66 /min 142/84 mm[Hg] Chen Jeffries [facility] 04/06/2019 11:46:44 Social History Question Answer Notes LastModified by Organizat ion Details LastModified Time Tobacco Smoking Status Former Smoker Rita Castaneda [facility] 02/09/2018 10:47:38 How Much Tobacco Do You Chew? None [email or web address] Information not available 04/06/2019 Marital Status Informatio n not available 02/09/2018 What Was The Date Of Your Most Recent Tobacco Screening? 02/09/2018 8 Information not available 07/10/2019 What Is Your Relationship Status? [email or web address] Information not available 07/02/2021 How Much Tobacco Do You Smoke? No [email or web address] Information not available 04/06/2019 Sex: Unknown Functional Status Question Answer Note LastModified by Organizat ion Details LastModified Time What is your level of alcohol consumption? 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 Family History Relationship Description Onset Age of this Age Resolved Age Notes LastModified by Organization Details LastModified Time Father No current problems or disability [email or web address] Not available 07/02 14:39:56 Mother No current problems or disability [email or web address] Not available 07/02 14:39:56 Medical History Condition Response Allergies/Hayfever Y False Teeth Y Chronic Obstructive Pulmonary Disease Y Pacemaker Y Arthritis Y Heart Disease Y Hypertension Y Past Encounters Encounter ID Performer Location Encounter Start Date Encounter Closed Date Diagnosis/Indication Diagnosis SNOMED-CT Code Diagnosis ICD10 Code Diagnosis IMO Codes Diagnosis Note [id number] QM[facility]PORTS [facility] [place] [address] 08/23/2016 18:49:15 08/23/2016 18:49:15 [id number] MD [facility] [address] [place] [address] 02/09/2018 10:30:17 02/09/2018 11:06:58 Lower urinary tract symptoms due to benign prostatic hypertrophy 6306483731 9101 N40.1 Impotence of organic origin 480606167 N52.9 [id number] MD [facility] [address] [address] 04/06/2019 10:41:01 04/06/2019 11:56:57 Lower urinary tract symptoms due to benign prostatic hypertrophy 7023587911 9101 N40.1 Impotence of organic origin 598201737 N52.9 [id number] ALICIA TUTTLE JR, MD [facility] [address] [place] [address] 07/02/2021 13:33:47 07/02/2021 14:46:39 Lower urinary tract symptoms due to benign prostatic hypertrophy 8260974894 9101 N40.1 Primary er ectile dysfunction 553602309 N52.9 Health Concerns Section Related Observation LastModified by Organization Detai ls LastModified Time None Recorded Concern Status LastModified by Organization Details LastModified Time None Recorded Advance Directives Directive None Recorded Payers Insurance Date Sequence Insurance Name Policy Number Policy James Covered Member ID James Member ID Guarantor Name 03/27/2024 1 [place] Johnny Stroud [id number] Johnny Stroud 07/02/2022 2 [place] [id number] Johnny Stroud [id number] Johnny Stroud Notes Date Note Type Note Provider Name and Address Organization Details Recorded Time 02/09/2018 text/html patient is in today to establish a relationship with urology. He is a pleasant 82-year-old gentleman who has a history of BPH treated with Hytrin. He has no significant complaints today. He denies hematuria. He denies any episodes of urinary retention. He denies any history of prostate infection. He has no personal or family history of prostate cancer. In the past patient has been treated for erectile dysfunction using penile injections however currently the patient does not desire treatment. ALICIA TUTTLE JR, MD [facility] [place], [address], [facility] 02/13/2018 08:48:44 04/06/2019 text/html patient is in today for follow-up of BPH. He is a pleasant 82-year-old gentleman who has a history of BPH treated with Hytrin. He has no significant complaints today. He denies hematuria. He denies any episodes of urinary retention. He denies any history of prostate infection. He has no personal or family history of prostate cancer. In the past patient has been treated for erectile dysfunction using penile injections however currently the patient does not desire treatment. ALICIA TUTTLE JR, MD [address] [place] [address], [phone], [facility] 04/09/2019 07:16:58 07/02/2021 text/html patient is in today for follow-up of BPH. He is a pleasant 82-year-old gentleman who has a history of BPH treated with tamsulosin, finasteride and oxybutynin. He has no significant complaints today. He denies hematuria. He denies any episodes of urinary retention. He denies any history of prostate infection. He has no personal or family history of prostate cancer. In the past patient has been treated for erectile dysfunction using penile injections ALICIA TUTTLE JR, MD [address] [place] [address], [phone], [facility] 07/06/2021 08:08:55
--- OUTSIDE RECORDS SUMMARY | 2025-05-20 11:55 | XMS_ITS | Referral Summary ---
Author Organization [employer] ([place], [place], [place], [place], [place]) Address [address] [place] [address] Care Team Providers Care Mat Cutter Name Role Phone Coleman Fitzgerald MD Primary Care Provider [phone] Thalia Briot PA-C Unavailable [phone] Eduard Harris MD Unavailable Encounters Date Type Department Care Team Description 04/22/2025 3:00 AM EST Clinical Support [facility] Electrophysiology [address] [place] [phone] Morris Barr MD Encounter for adjustment or management of cardiac device (Primary Dx); AICD (automatic cardioverter/defibrill ator) present; Ischemic cardiomyopathy; Chronic systolic congestive heart failure (HCC) 03/20/2025 3:00 AM EDT Clinical Support [facility] Electrophysiology [address] [place] [address] Morris Barr MD Encounter for adjustment or management of cardiac device (Primary Dx); AICD (automatic cardioverter/defibrill ator) present; Ischemic cardiomyopathy; Chronic systolic congestive heart failure (HCC) 03/19/2025 3:00 AM EDT Clinical Support [facility] Electrophysiology [address] [place] [address] Morris Barr MD Encounter for adjustment or management of cardiac device (Primary Dx); AICD (automatic cardioverter/defibrill ator) present; Ischemic cardiomyopathy; Chronic systolic congestive heart failure (HCC) 03/11/2025 Travel 03/11/2025 1:30 PM EDT Office Visit [facility] Cardiology [address] [place] [address] Corina Gómez MD Ischemic cardiomyopathy (Primary Dx); Primary hypertension; Chronic systolic congestive heart failure (HCC); Arteriosclerosis of coronary artery; AICD (automatic cardioverter/defibrill ator) present from Last 3 Months Allergies Active Allergy Reactions Criticality Noted Date Comments Propoxyphene Itching 03/30/2018 Propoxyphene N-Acetaminophen 023 Sulfa (Sulfonamide Antibiotics) Hives,Itching High 1 05/30/2017 Medications aspirin 81 MG EC tablet Aspirin Low-Strength 81 mg tablet,delayed release Daily Active clopidogreL (PLAVIX) 75 mg tablet Take by mouth. 2 Active tamsulosin (FLOMAX) 0.4 mg Cap 24 hr capsule 1 capsule (0.4 mg total). Active zolpidem (AMBIEN) 10 mg tablet Take by mouth. 3 Active atorvastatin (LIPITOR) 40 MG tablet TAKE 1 TABLET AT BEDTIME 90 tablet 3 4 Active amiodarone (PACERONE) 200 MG tabletIndication s:Ventricular tachycardia (HCC) Take 0.5 tablets (100 mg total) by mouth daily. 45 tablet 3 5 Active Additional Information Patient taking differently:100 mg oral2 times daily, Reported on 03/11/2025 bisoprolol (ZEBETA) 5 MG tablet Take 0.5 tablets (2.5 mg total) by mouth nightly. 45 tablet 3 5 09/11/19 26 Active lisinopriL (ZestriL) 2.5 MG tablet Take 1 tablet (2.5 mg total) by mouth daily. 90 tablet 3 5 Active furosemide (LASIX) 20 MG tablet TAKE 1 TABLET BY MOUTH EVERY DAY 90 tablet 3 5 Active OXcarbazepine (TRILEPTAL) 150 MG tablet Take 1 tablet (150 mg total) by mouth 2 (two) times daily. Active Active Problems Problem Noted Date Diagnosed Date Encounter for adjustment or management of cardia c device 06/22/2024 Chronic systolic congestive heart failure 2023 AICD (automatic cardioverter/defibrillator) pres ent 06/23/2022 Arteriosclerosis of coronary artery 03/27/2021 Ischemic cardiomyopathy 03/27/2021 Hypertension 03/27/2021 Chronic obstructive pulmonary disease 09/18/2020 Resolved Problems Problem Noted Date Diagnosed Date Resolved Date Other longterm (current) drug therapy 03/27/2021 10/12/2023 Presence of [...] Date Narinder rded Speak language other than Somali at home Not on file 06/10/2023 Want [...] Sign Reading Time Taken Comments Blood Pressure 124/74 03/11/2025 1:34 PM EDT Pulse 86 03/11/2025 1:34 PM EDT Temperature - - Respiratory Rate - - Oxygen Saturation - - Inhaled Oxygen Concentration - - Weight 87.8 kg (193 lb 9.6 oz) 03/11/2025 1:34 P M EDT Height 190.5 cm (6' 3 ) 03/11/2025 1:34 PM EDT Body Mass Index 24.2 03/11/2025 1:34 PM EDT Plan of Treatment Not on file Medical Devices Implanted Type Area Yarding Engineer Device Identifier Shelf Expiration Date Model / Serial / Lot Icd-11/01/2016 Implanted:2016 (Quantity not on file) ICD [employer] [place] / [id number] / Description:DEPENDENT Insurance MEDICARE PART A B SUPP Care Teams Mat Cutter Relationship Specialty Start Date End Date Coleman Fitzgerald MD [address] [place] [address] [place] [address] PCP - General Family Medicine 05/28/22 Thalia Brito, PA-C [address] [place] [address] [address] Cardiology 01/07/23 [place] [address] [place] [address] [address] [place] [address] Cardiology 01/07/23
--- OUTSIDE RECORDS SUMMARY | 2025-05-20 11:55 | XMS_ITS | Clinical Summary ---
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 10/12/2023 Encounters Date Type Department Care Team Description 04/22/2025 3:00 AM EST Clinical Support [facility] Electrophysiology [address] [place], [place] [phone] Morris Barr MD Encounter for adjustment or management of cardiac device (Primary Dx); AICD (automatic cardioverter/defibrill ator) present; Ischemic cardiomyopathy; Chronic systolic congestive heart failure (HCC) 03/20/2025 3:00 AM EDT Clinical Support [facility] Electrophysiology [address] [place], [place] [phone] Morris Barr MD Encounter for adjustment or management of cardiac device (Primary Dx); AICD (automatic cardioverter/defibrill ator) present; Ischemic cardiomyopathy; Chronic systolic congestive heart failure (HCC) 03/19/2025 3:00 AM EDT Clinical Support [facility] Electrophysiology [address] [place] [phone] Morris Barr MD Encounter for adjustment or management of cardiac device (Primary Dx); AICD (automatic cardioverter/defibrill ator) present; Ischemic cardiomyopathy; Chronic systolic congestive heart failure (HCC) 03/11/2025 1:30 PM EDT Office Visit [facility] Cardiology [address] [place] [address] Corina Gómez MD Ischemic cardiomyopathy (Primary Dx); Primary hypertension; Chronic systolic congestive heart failure (HCC); Arteriosclerosis of coronary artery; AICD (automatic cardioverter/defibrill ator) present 03/11/2025 Travel from Last 3 Months Family History [...] Date Narinder rded Speak language other than [place] Korean at home Not on file 06/10/2023 Want [...] 03/11/2025 1:34 PM EDT Plan of Treatment Health Maintenance Due Date Last Done Comments Medicare Initial AWV G0438 Depression Screening (12+) 1947 Shingles Vaccine (Zoster) (1 of 2) 07/31/1985 Respiratory Syncytial Virus (RSV) Adult or (1 - 1-dose 75+ series) 07/31/2010 Pneumococcal 50+ years (2 of 2 - PPSV23, PCV20, or PCV21) 04/17/2015 02/20/2015 Falls Risk Screening 05/23/2024 COVID-19 VACCINE (8 2023-2 5 season) 2025 02/21/2024, 03/24/2023, 03/02/2022, Additional history exists Influenza Vaccine (#1) 2025 , 03/03/2023, 02/16/2022 Tobacco Cessation Counseling and Screening (12+) 03/11/2026 03/11/2025 DTAP/TDAP/TD VACCINES (4 - T d or Tdap) 07/27/2029 07/28/2019, 12/26/2013, 12/26/2013 Medical Devices Implanted Type Area Registered Representative Device Identifier Shelf Expiration Date Model / Serial / Lot Icd-11/01/2016 Implanted:2016 (Quantity not on file) ICD [employer] [place] / [id number] / Description:DEPENDENT Insurance MEDICARE PART A B Care Teams Novelty Balloon Assembler And Packer Relationship Specialty Start Date End Date Coleman Fitzgerald MD [address] [place] [address] REJI Gay [address] PCP - General Family Medicine 05/28/22 Thalia Brito, PA-C [address] [place] [address] [place] [address] Cardiology 01/07/23 [place] [address] [place] [address] [address] Cardiology 01/07/23
--- OUTSIDE RECORDS SUMMARY | 2025-05-20 11:55 | XMS_ITS | Encounter Summary ---
Author Organization [facility] Address [address] [place] [address] Care Team Providers Care Sheetfed Press Operator Name Role Phone Pcp, No Primary Care Provider Unavailabl e Nuria Muniz DMD Unavailable [phone] Domingo Law Unavailable Unavailable Herminio Tapia PA Unavailable [phone] Santiago Morrell MD Unavailable [phone] Thanh Fitzgerald MD Primary Care Provider [phone] Encounter Details Date Type Department Care Team (Late st Contact Info) Description 12/21/2022 Lab Requisition [facility] [address] [place] [address] Huang Gonzalez MD [address] [facility] [address] [place] [address] Mucocele of salivary gland Social [...] on file documented as of this encounter Procedures Procedure Name Priority Date/Time Associated Diagnosis Comments SURGICAL PATHOLOGY CONSULT Routine 12/21/2022 11:10 AM EDT Mucocele of salivary gland documented in this encounter Results * Surgical Pathology Consult (12/21/2022 11:10 AM EDT) Case Report Sugical Pathology Consult Case: [id number] Authorizing Provider: Huang Gonzalez MD Collected: 12/21/2022 1110 Ordering Location: [facility] Lab Received: 12/21/2022 1110 Pathologist: Candelario Willis DO Specimen: Mucosa, [id number] 3 9:17 AM EDT [facility] Final Diagnosis A. Oral cavity, lower lip, excision (OSC# [id number]; collected 12/10/22): - MALIGNANT MELANOMA, desmoplastic growth pattern - See comment 9:17 AM EDT [facility] at 0917 EDT Comment While a [...] with clinical and radiographic findings is required. 9:17 AM EDT [facility] Synoptic Checklist MELANOMA OF THE SKIN: [...] (pTNM, AJCC 8th Edition): pT Category: pT4a 9:17 AM EDT [facility] Clinical Information K11.6 - Mucocele of salivary gland [ICD-10-CM] 3 9:17 AM EDT [facility] Microscopic Description Immunohistochemical stains are provided for review with adequate controls. The tumor is positive for SOX-10 and S-100. MelanA, HMB-45, CK5/6, desmin, p40, pancytokeratin, WT1, and NSE are negative within tumor cells. 3 9:17 AM EDT [facility] Gross Description A. [id number] Received along with a corresponding pathology report from [facility] are 14 slide(s) labeled outside case: [id number] collected on 12/10/2022. 3 9:17 AM EDT [facility] Intradepartmental Consultation with Agreement Damaris Benitez MD 3 9:17 AM EDT [facility] Note: A resident was involved in the service. I attest I examined the relevant preparations for the specimens and confirmed the diagnosis or interpretation. 3 9:17 AM EDT [facility] Tissue (Mucosa) 12/21/2022 1 1:10 AM EDT 12/21/2022 11:10 AM EDT us Huang Gonzalez MD LAB PATHOLOGY ORDERABLES Final R esult [facility] [address] [place] [address] documented in this encounter Visit Diagnoses Diagnosis Mucocele of salivary gland documented in this encounter Additional Health Concerns Assessment Noted Time A fall risk assessment has been complete d for the patient 12/20/2022 9:28 AM EDT documented as of this encounter Care Teams Sheetfed Press Operator Relationship Specialty Start Date End Date Pcp, Britney [address] [place], [place] [phone] PCP - General Family Medicine 02/02/22 01/17/23 [place] [address] PCP - General 01/18/23 Nuria Muniz DMD [address] [facility] [address] [place] [address] Dentist Dental Rand Sewer 02/04/22 Domingo Law [facility] Dental Student Dental Rand Sewer 02/04/22 09/13/23 Herminio Tapia PA [address] [facility] [address] [place] [address] Physician Machine Stone Polisher Otolaryngology 12/16/22 Santiago Morrell MD [id number] Referring Physician 12/16/22 documented as of this encounter
--- OUTSIDE RECORDS SUMMARY | 2025-05-20 11:55 | XMS_ITS | Encounter Summary ---
Author Organization [employer] ([place], [place], [place], [place], [place]) Address [address] [place] [address] Care Team Providers Care Production Lapping Machine Operator Name Role Phone Coleman Fitzgerald MD Primary Care Provider [phone] Thalia Brito PA-C Unavailable [phone] Eduard Harris MD Unavailable Encounter Details Date Type Department Care Team (Late st Contact Info) Description 06/06/2018 Transcribed Document [facility] [place] [address] ProviderShannon MD [address] [place] [address] Social History Tobacco Use Types Packs/Day Years Used Date Smoking Tobacco: Never Assessed Sex and Gender Information Value Date Recorded Sex Assigned at Not on file Legal Sex Male 5:30 PM CDT Gender Identity Not on file Sexual Orientation Not on file documented as of this encounter Miscellaneous Notes * [employer] Conversion Note - Shannon ProviderMD - 06/06/2018 7:53 PM OPTICAL LABORATORY MANAGER DATE OF STUDY: 06/06/2018 PATIENT DATA: Age: [...] CC1: Danielle Fernandez M.D. Electronically signed by [facility], [facility] Conversion Retirement Plan Counselor [employer] at 09/06/2022 9:34 AM CDT documented in this encounter Plan of Treatment Not on file documented as of this encounter Visit Diagnoses Not on filedocumented in this encounter Care Teams Production Lapping Machine Operator Relationship Specialty Start Date End Date Coleman Fitzgerald MD [address] [place] [address] PCP - General Family Medicine 05/28/22 Thalia Brito PA-C [address] [place] [address] [address] Cardiology 01/07/23 Eduard Harris MD [address] [place] [address] [id number] Cardiology 01/07/23 documented as of this encounter
--- OUTSIDE RECORDS SUMMARY | 2025-05-20 11:55 | XMS_ITS | Encounter Summary ---
Author Organization [employer] ([place], [place], [place], [place], [place]) Address [address] [place] [address] Care Team Providers Care Special Education Classroom Aide Name Role Phone Coleman Fitzgerald MD Primary Care Provider [phone] Thalia Brito PA-C Unavailable [phone] Eduard Harris MD Unavailable Encounter Details Date Type Department Care Team (Late st Contact Info) Description 01/16/2019 Transcribed Document [facility] Pulm & Critical Care Medicine [address] [place] [address] [place] [address] Tien Tapia MD [address] [facility] [address] [place] [address] Social History Tobacco Use Types Packs/Day Years [...] on filedocumented in this encounter Care Teams Special Education Classroom Aide Relationship Specialty Start Date End Date Coleman Fitzgerald MD [address] [place] [address] [place] [address] PCP - General Family Medicine 05/28/22 Thalia Brito PA-C [address] [place] [address] [address] Cardiology 01/07/23 Eduard Harris MD [address] [place] [address] [address] Cardiology 01/07/23 documented as of this encounter
[2025-05-20 12:47] LABS: Alanine Aminotransferase 13 U/L (12-78); Albumin Level 3.9 g/dl (3.5-5.0); Albumin/Globulin Ratio 1.6 (1.1-1.8); Alkaline Phosphatase 89 U/L (38-126); Anion Gap 6.5 mEq/L (5-15); Aspartate Amino Transferase 22 U/L (17-59); Bilirubin,Total 0.7 mg/dl (0.2-1.3); Blood Urea Nitrogen 16 mg/dl (9-20); Calcium 8.3 mg/dl (8.4-10.2); Carbon Dioxide 33 mmol/L (22.0-30.0); Chloride 94 mmol/L (98-107); Creatinine,Serum 1.20 mg/dl (0.66-1.25); Estimated Glomerular Filt Rate 57 ml/min (>60); GFR (African American) 69 ML/MIN (>60); Globulin 2.4 g/dL (1.3-3.2); Glucose 85 mg/dl (74-100); Potassium 4.5 mmoL/L (3.5-5.1); Sodium 129 mmol/L (136-145); Total Protein,Serum 6.3 g/dl (6.3-8.2)
== END 2025-05-20 23:59 | disposition home or self-care (01) ==
LOC: LAB 11:52
PROVIDERS: PCP Family Medicine; Visit Provider Specialist
DX: G50.0 Trigeminal neuralgia (principal); Z85.820 Personal history of malignant melanoma of skin
CPT/HCPCS: 36415; 80053